=== PATIENT | female | born 1955 | race Caucasian/White ===

== ENCOUNTER 2022-10-22 09:32 | Outpatient (OUT) | payer MEDICARE, SELFPAY ==
--- NOTE | 2022-10-22 09:44 | CT_ITS ---
The [address] [address] Patient Name: MIKE PEARCE MRN: [id number] date: 1955 Sex: F Assigned Patient Location: CT Current Patient Location: Accession/Order Number: [id number] Exam Date: 10/22/2022 09:45 Report Date: 10/23/2022 07:42 At the request of: SAMANTHA ROLLINS Procedure: CT chest wo con EXAM: CT chest wo con HISTORY: Lung Nodule R91.1 cough, difficulty breathing COMPARISON: CT scan dated 04/21/2022. FINDINGS: 2.6 x 2.4 cm left upper lobe focal opacity is not significantly changed. 5 mm solid left lower lobe pulmonary nodule is not significantly changed. 2 mm right apical solid pulmonary nodule is not significantly changed. Subpleural right upper lobe 3 to 4 mm solid pulmonary nodule is not significantly changed. No acute airspace opacities. No pneumothorax. No pleural effusion. No definite lymphadenopathy in the chest. Centrilobular emphysema in both lungs. Ascending aorta is at the upper limits of normal in caliber measuring up to 3.[address]/CT chest wo con IMPRESSION: Stable focal left upper lobe opacity. This remains indeterminate for a low-grade malignancy. Continued imaging follow-up is recommended. Electronically authenticated by: DAVID MELVIN Date: 10/23/2022 07:42
== END 2022-10-22 09:33 | disposition home or self-care (01) ==
LOC: CT 09:35
PROVIDERS: PCP Family Medicine; Visit Provider Family Medicine
DX: R91.1 Solitary pulmonary nodule (principal)
CPT/HCPCS: 71250

== ENCOUNTER 2023-04-21 09:35 | Outpatient (OUT) | payer MEDICARE, SELFPAY ==
--- NOTE | 2023-04-21 09:41 | XR_ITS ---
The [address] [address] Patient Name: MIKE PEARCE MRN: [id number] date: 1955 Sex: F Assigned Patient Location: [facility] Current Patient Location: [facility] Accession/Order Number: [id number] Exam Date: 04/21/2023 09:45 Report Date: 04/21/2023 10:16 At the request of: SAMANTHA ROLLINS Procedure: XR shoulder LT min 2V EXAM: XR shoulder LT min 2V HISTORY: Lung Mass R91.8 COMPARISON: None. TECHNIQUE: 3 views FINDINGS: No acute fracture or dislocation. Mild degenerative changes of the acromioclavicular and glenohumeral joints. Unremarkable soft tissues. XR/XR shoulder LT min 2V IMPRESSION: Degenerative changes as above. Electronically authenticated by: CECI PELAEZ Date: 04/21/2023 10:16
== END 2023-04-21 09:36 | disposition home or self-care (01) ==
LOC: RAD 09:36
PROVIDERS: PCP Family Medicine; Visit Provider Family Medicine
DX: R91.8 Other nonspecific abnormal finding of lung field (principal)
CPT/HCPCS: 73030

== ENCOUNTER 2023-04-22 08:31 | Outpatient (OUT) | payer MEDICARE, SELFPAY ==
--- OUTSIDE RECORDS SUMMARY | 2023-04-22 08:34 | XMS_ITS | CCD ---
Author Name Unknown Address [facility] [address] [place] [id number] Organization [facility] Care Team Providers Care Dependency Counselor Name Role Phone PHYSICIAN, DEFAULT Admitting Unavailable PHYSICIAN, DEFAULT Attending Unavailable PHYSICIAN, DEFAULT Admitting Unavailable PHYSICIAN, DEFAULT Attending Unavailable HOY ., DR SINGH Consulting Unavailable HOY ., DR SINGH Primary Care Unavailable HOY ., DR SINGH Admitting Unavailable HOY ., DR SINGH Attending Unavailable HOY ., DR SINGH Primary Care Unavailable HOY ., DR SINGH Admitting Unavailable HOY ., DR SINGH Attending Unavailable HOY ., DR SINGH Consulting Unavailable ZIEBER, DR PELON Masters Consulting Unavailable HOY ., DR SINGH Primary Care Unavailable HOY ., DR SINGH Admitting Unavailable HOY ., DR SINGH Attending Unavailable HOY ., DR SINGH Consulting Unavailable POLICARO, GLORIA Consulting Unavailable Allergies Allergy Classification Reported Allergen(s) Allergy Type Date of Onset Reaction(s) Facility (1 source) Sulfonamides (Antibiotic) Drug allergy (disorder) 10-04-2012 [facility] Problems Problem Classification Problem Date Documented Da te Episodic/Chronic Chronic obstructive pulmonary disease and bronchiectasis (1 source) Chronic obstructive pulmonary disease, unspecified; Translations: [COPD UNSPECIFIED] Onset: 04-26-2022 Chronic Deficiency and other anemia (1 source) Anemia, unspecified; Translations: [ANEMIA UNSPECIFIED] Onset: 04-26-2022 Episodic Diabetes mellitus without complication (1 source) Other abnormal glucose; Translations: [OTHER ABNORMAL GLUCOSE] Onset: 04-26-2022 Episodic Disorders of lipid metabolism (1 source) Hyperlipidemia, unspecified; Translations: [HYPERLIPIDEMIA UNSPECIFIED] Onset: 04-26-2022 Chronic Other lower respiratory disease (4 sources) Solitary pulmonary nodule; Translations: [SOLITARY PULMONARY NODULE] Onset: 04-24-2022 Episodic Other lower respiratory disease (1 source) Shortness of breath; Translations: [SHORTNESS OF BREATH] Onset: 04-26-2022 Episodic Other screening for suspected conditions (not mental disorders or infectious disease) (5 sources) Abnormal results of thyroid function studies; Translations: [Encounter for screening for malignant neoplasm of rectum] Onset: 04-26-2022 Episodic Spondylosis; intervertebral disc disorders; other back problems (4 sources) Lumbago with sciatica, right side; Translations: [LUMBAGO WITH SCIATICA RIGHT SIDE] Onset: 04-21-2022 Episodic Substance-related disorders (1 source) Nicotine dependence, cigarettes, uncomplicated; Translations: [NICOTINE DEPEND CIGARETTES UNCOMP] Onset: 04-26-2022 Chronic Results Test Name Value Interpretation Reference Range Facility FREE T3on 05-19-2022 FREE T3 2.61 pg/mlL Normal 2.18-3.98 [facility] Comment on above: Performed By: #### T SH, T4, FT3 #### [facility] [address] [place] [address] Dr. Whitley Alston T4on 05-19-2022 T4 [Mass/Vol] 8.30 ug/dL Normal 4.80-13.90 [facility] Comment on above: Performed By: #### T SH, T4, FT3 #### [facility] [address] [address] [address] Whitley Alston TSHon 05-19-2022 TSH 3.401 uIU/mL Normal 0.358-3.740 [facility] Comment on above: Performed By: #### T SH, T4, FT3 #### [facility] [address] [place] [address] Dr. Whit[address] CT SKULL BASE MID THIGHo n 04-24-[address] SKULL BASE MID THIGH NUCLEAR MEDICINE PET/CT HISTORY: Solitary pulmonary nodule. COMPARISON: CT chest 04/21/2022. METHOD: 11.49 mCi of F-18 FDG was administered intravenously. PET images were obtained from the skull base through the midthigh levels in the axial plane. Reformatted images were performed in the sagittal and coronal planes. A low-dose, noncontrast CT scan was performed for attenuation correction and anatomical localization. A low dose, noncontrast and nondiagnostic CT scan was performed for attenuation correction and anatomic localization. Mediastinal blood pool SUV max 2.7 using the patient's body weight as the normalization method. FINDINGS: HEAD AND NECK: There are no metabolically active lymph nodes in the neck. CHEST: There are no metabolically active mediastinal, hilar, or axillary lymph nodes. The major airways are patent. There is no pericardial effusion. There is no evidence of abnormal metabolic uptake in the esophagus. There are emphysematous changes. There is a minimally metabolically active 2.1 x 2.1 x 1.4 cm ill-defined left upper lobe density with a maximum SUV of 2.2. There is a nonmetabolically active left lower lobe 4 mm pulmonary nodule. There is no evidence of abnormal metabolic uptake in the lung parenchyma. There are no pleural effusions. There is no pneumothorax. ABDOMEN AND PELVIS: There is no evidence of abnormal metabolic activity in the liver or adrenal glands. There is no evidence of abnormal metabolic active lymph nodes in the abdomen or pelvis. There is no free fluid. There is physiologic uptake in the urinary system and bowel. MUSCULOSKELETAL: There is no evidence of abnormal metabolically active bony lesions. IMPRESSION: Minimally metabolically active ill-defined left upper lobe density measuring 2.1 x 2.1 x 1.4 cm. This may be of benign etiology however this could represent a slow-growing neoplasm such as a bronchioloalveolar carcinoma. Recommend follow-up noncontrast CT chest in 3 and 9 months. Nonmetabolically active left lower lobe 4 mm pulmonary nodule. This can also be reassessed on the follow-up CT chest's. Emphysema. Electronically authenticated by: GLORIA PRO Date: 2022-04-24 17:22 Normal [facility] CBC AUTO DIFFon 04-21-2022 BASO # 0.0 103/ul Normal 0.0-0.1 [facility] Comment on above: Performed By: #### C BC #### [facility] [address], [place] [address] Dr. Whitley Alston Basophils/100 WBC (Bld) 0.5 % Normal 0.2-2.0 [facility] Comment on above: Performed By: #### C BC #### [facility] [address], [place] [address] Dr. Whitley Alston EO # 0.3 103/ul Normal 0.0-0.7 [facility] Comment on above: Performed By: #### C BC #### [facility] [address] [place] [address] Dr. Whitley Alston Eosinophils/100 WBC (Bld) 5.6 % Normal 0.9-7.0 [facility] Comment on above: Performed By: #### C BC #### [facility] [address] [place] [address] Dr. Whitley Alston Erythrocyte distribution width (RBC) [Ratio] 13.2 % Normal 11.0-15.0 [facility] Comment on above: Performed By: #### C BC #### [facility] [address] [place] [address] Dr. Whitley Alston Hematocrit (Bld) [Volume fraction] 42.8 % Normal 36.0-48.0 [facility] Comment on above: Performed By: #### C BC #### [facility] [address] [place] [address] Dr. Whitley Alston Hemoglobin (Bld) [Mass/Vol] 14.3 g/dL Normal 12.0-16.0 [facility] Comment on above: Performed By: #### C BC #### [facility] [address] [place] [address] Dr. Whitley Alston IG # 0.02 10e3/ul Normal 0.00-0.03 [facility] Comment on above: Performed By: #### C BC #### [facility] [address] [place] [address] Dr. Whitley Alston IG % 0.3 % Normal 0.0-0.5 [facility] Comment on above: Performed By: #### C BC #### [facility] [address] [place] [address] Dr. Whitley Alston LYMPH # 1.8 103/ul Normal 1.2-3.8 [facility] Comment on above: Performed By: #### C BC #### [facility] [address] [place] [address] Dr. Whitley Alston Lymphocytes/100 WBC (Bld) 30.7 % Normal 20.5-60.0 [facility] Comment on above: Performed By: #### C BC #### [facility] [address] [place] [address] Dr. Whitley Alston MANUAL DIFF REQ NO Normal [facility] Comment on above: Performed By: #### C BC #### [facility] [address] [place] [address] Dr. Whitley Alston MCH (RBC) [Entitic mass] 29.2 pg Normal 26.7-34.0 [facility] Comment on above: Performed By: #### C BC #### [facility] [address] [place] [address] Dr. Whitley Alston MCHC (RBC) [Mass/Vol] 33.4 g/dL Normal 29.9-35.2 [facility] Comment on above: Performed By: #### C BC #### [facility] [address] [place] [address] Dr. Whitley Alston MCV (RBC) [Entitic vol] 87.3 fL Normal 81.0-99.0 [facility] Comment on above: Performed By: #### C BC #### [facility] [address] [place] [address] Dr. Whitley Alston MONO # 0.5 103/ul Normal 0.3-0.8 [facility] Comment on above: Performed By: #### C BC #### [facility] [address] [place] [address] Dr. Whitley Alston Monocytes/100 WBC (Bld) 9.4 % Normal 1.7-12.0 [facility] Comment on above: Performed By: #### C BC #### [facility] [address] [place] [address] Dr. Whitley Alston NEUT # 3.1 103/ul Normal 1.4-6.5 [facility] Comment on above: Performed By: #### C BC #### [facility] [address] [place] [address] Dr. Whitley Alston Neutrophils/100 WBC (Bld) 53.5 % Normal 43.0-75.0 [facility] Comment on above: Performed By: #### C BC #### [facility] [address] [address] [address] Whitley Alston Platelet mean volume (Bld) [Entitic vol] 10.5 fL Normal 9.5-13.5 [facility] Comment on above: Performed By: #### C BC #### [facility] [address] [place] [address] Dr. Whitley Alston PLT 271 103/ul Normal 150-450 [facility] Comment on above: Performed By: #### C BC #### [facility] [address] [place] [address] Dr. Whitley Alston RBC 4.90 106/ul Normal 4.20-5.40 [facility] Comment on above: Performed By: #### C BC #### [facility] [address] [place] [address] Dr. Whitley Alston WBC 5.7 103/ul Normal 4.0-11.0 [facility] Comment on above: Performed By: #### C BC #### [facility] [address] [place] [address] LUNG CANCER SCREENINGon 0 04-21-2022 CT LUNG CANCER SCREENING EXAMINATION: CT LUNG CANCER SCREENING HISTORY: Tobacco dependence caused by cigarettes , cough, shortness of breath and COMPARISON: No relevant comparison available. TECHNIQUE: Axial, Coronal, and Sagittal images were created without the administration of IV contrast material. Dose reduction techniques were achieved by using automated exposure control and/or adjustment of mA and/or kV according to patient size and/or use of iterative reconstruction technique. FINDINGS: LUNGS: Geographic shaped spiculated opacity within anterior right upper lobe, 2.1 x 2.1 x 1.4 cm. 5 mm nodule within lateral basilar segment of left lower lobe. Mild emphysematous changes bilaterally. In PLEURA: No mass, effusion, or pneumothorax. VASCULATURE: No abnormality. QUINN: No mass or pathologic adenopathy. MEDIASTINUM: No mass or pathologic adenopathy. CARDIAC: No enlargement, pericardial thickening, or significant calcification. AORTA: No aneurysm or dissection. CHEST WALL: No mass or axillary adenopathy BONES: No bone lesion or fracture. LIMITED ABDOMEN: No suspicious findings. Limited images of the upper abdomen. OTHER: Negative. IMPRESSION: 1. Lung-RADS Category 4A- Suspicious. Findings for which additional diagnostic testing and/ or tissue sampling is recommended. 3 month LDCT; PET/CT may be used when there is a >= 8 mm solid component. 2. PET/CT recommended for further evaluation. Electronically authenticated by: PELON DAVIS Date: 2022-04-21 11:38 Normal [facility] FREE THYROXINE INDEX T7on FTI 2.63 Normal 1.30-4.50 [facility] Comment on above: Performed By: #### L IPID, TSH, T7, CMP #### [facility] [address] [place] [address] Dr. Whitley Alston T3U 37.0 % Normal 30.0-39.0 [facility] Comment on above: Performed By: #### L IPID, TSH, T7, CMP #### [facility] [address] [place] [address] Dr. Whitley Alston T4 [Mass/Vol] 7.10 ug/dL Normal 4.80-13.90 [facility] Comment on above: Performed By: #### L IPID, TSH, T7, CMP #### [facility] [address] [place] [address] Dr. Whitley Alston GLYCOHEMOGLOBIN A1Con 2022 ADA RECOMMENDATION SEE BELOW Normal [facility] Comment on above: Result Comment: ADA RECOMMENDED LIMIT 4.0 - 6.0 ADA THERAPEUTIC TARGET < 7.0 ACTION SUGGESTED > 7.0 Performed By: #### A 1C #### [facility] [address] [place] [address] Dr. Whitley Alston Glucose [Mass/Vol] 105 mg/dL Normal [facility] Comment on above: Performed By: #### A 1C #### [facility] [address] [place] [address] Dr. Whitley Alston HbA1c (Bld) [Mass fraction] 5.3 % Normal 4.5-6.2 [facility] Comment on above: Performed By: #### A 1C #### [facility] [address] [place] [address] Dr. Whitley Alston IRONon 04-21-2022 Iron [Mass/Vol] 137.0 ug/dL Normal 50.0-170.0 [facility] Comment on above: Performed By: #### I KINSEY ####[facility] [address] [address]Dr. Whitley Alston LIPID PROFILEon 04-21-2022 CHOL-HDL RATIO NORM SEE BELOW Normal [facility] Comment on above: Result Comment: 3.3 - 4.4 LOW RISK 4.4 - 7.1 AVERAGE RISK 7.1 - 11.0 MODERATE RISK >11.0 HIGH RISK Performed By: #### L IPID, TSH, T7, CMP ####[facility] [address] [address]Dr. Whitley Alston Cholesterol [Mass/Vol] 250 mg/dL Critically high <=200 [facility] Comment on above: Performed By: #### L IPID, TSH, T7, CMP ####[facility] [address] [place], [place] [address]Dr. Whitley Alston Cholesterol in HDL [Mass/Vol] 111 mg/dL Critically high 40-60 [facility] Comment on above: Performed By: #### L IPID, TSH, T7, CMP ####[facility] [address] [address]Dr. Whitley Alston Cholesterol in LDL [Mass/Vol] 121.6 mg/dL Normal [facility] Comment on above: Performed By: #### L IPID, TSH, T7, CMP ####[facility] [address] [address]Dr. Whitley Alston Cholesterol.total/Ch olesterol in HDL [Mass ratio] 2.3 {ratio} Normal [facility] Comment on above: Performed By: #### L IPID, TSH, T7, CMP ####[facility] [address] [address]Dr. Whitley Alston HDL NORMAL > or = 60 mg/dl - LO W CARDIOVASCULAR RISK <40 mg/dl - HIGH CARDIOVASCULAR RISK Normal [facility] Comment on above: Performed By: #### L IPID, TSH, T7, CMP ####[facility] [address] [id number]. Whitley Alston LDL CALC NORMAL SEE BELOW Normal [facility] Comment on above: Result Comment: <100 mg/dl OPTIMAL 100 - 129 mg/dl NEAR OR ABOVE OPTIMAL 130 - 159 mg/dl BORDERLINE HIGH 160 - 189 mg/dl HIGH >190 mg/dl VERY HIGH Performed By: #### L IPID, TSH, T7, CMP ####[facility] [address] [address]Dr. Whitley Alston Triglyceride [Mass/Vol] 87 mg/dL Normal <=150 [facility] Comment on above: Performed By: #### L IPID, TSH, T7, CMP ####[facility] [address] [address]Dr. Whitley Alston VLDL CALC 17.4 mg/dL Normal [facility] Comment on above: Performed By: #### L IPID, TSH, T7, CMP ####[facility] [address] [address]Dr. Whitley Alston PROF 14(COMP METB)on 023 Albumin [Mass/Vol] 4.1 g/dL Normal 3.4-5.[address] [facility] Comment on above: Performed By: #### L IPID, TSH, T7, CMP #### [facility] [address] [address] [address] Whitley Alston Albumin/Globulin [Mass ratio] 1.2 {ratio} Normal [facility] Comment on above: Performed By: #### L IPID, TSH, T7, CMP #### [facility] [address] [address] [address] Whitley Alston ALP [Catalytic activity/Vol] 81 U/L Normal 46-116 [facility] Comment on above: Performed By: #### L IPID, TSH, T7, CMP #### [facility] [address] [address] [address] Whitley Alston ALT [Catalytic activity/Vol] 24 U/L Normal 14-59 [facility] Comment on above: Performed By: #### L IPID, TSH, T7, CMP #### [facility] [address] [place] [address] Dr. Whitley Alston Anion gap [Moles/Vol] 11.0 mmol/L Normal [facility] Comment on above: Performed By: #### L IPID, TSH, T7, CMP #### [facility] [address] [place] [address] Dr. Whitley Alston AST [Catalytic activity/Vol] 18 U/L Normal 15-37 [facility] Comment on above: Performed By: #### L IPID, TSH, T7, CMP #### [facility] [address] [place] [address] Dr. Whitley Alston Bilirubin [Mass/Vol] 0.7 mg/dL Normal 0.2-1.0 [facility] Comment on above: Performed By: #### L IPID, TSH, T7, CMP #### [facility] [address] [place] [address] Dr. Whitley Alston Calcium [Mass/Vol] 9.7 mg/dL Normal 8.5-10.[address] [facility] Comment on above: Performed By: #### L IPID, TSH, T7, CMP #### [facility] [address] [place] [address] Dr. Whitley Alston Chloride [Moles/Vol] 106 mmol/L Normal 98-107 [facility] Comment on above: Performed By: #### L IPID, TSH, T7, CMP #### [facility] [address] [place] [address] Dr. Whitley Alston CO2 [Moles/Vol] 27.1 mmol/L Normal 21.0-32.0 [facility] Comment on above: Performed By: #### L IPID, TSH, T7, CMP #### [facility] [address] [place] [address] Dr. Whitley Alston Creatinine [Mass/Vol] 0.78 mg/dL Normal 0.55-1.02 [facility] Comment on above: Performed By: #### L IPID, TSH, T7, CMP #### [facility] [address] [place], [place] [id number] Dr. Whitley Alston EGFR-AF CROATIAN >60 Normal >=60 [facility] Comment on above: Performed By: #### L IPID, TSH, T7, CMP #### [facility] [address] [address] [address] Whitley Alston EGFR-NON AF CROATIAN >60 Normal >=60 [facility] Comment on above: Performed By: #### L IPID, TSH, T7, CMP #### [facility] [address] [address] [address] Whitley Alston Globulin (S) [Mass/Vol] 3.5 g/dL Normal [facility] Comment on above: Performed By: #### L IPID, TSH, T7, CMP #### [facility] [address] [place] [address] Dr. Whitley Alston Glucose [Mass/Vol] 107 mg/dL Critically high 74-106 [facility] Comment on above: Performed By: #### L IPID, TSH, T7, CMP #### [facility] [address] [place] [address] Dr. Whitley Alston Potassium [Moles/Vol] 4.1 mmol/L Normal 3.5-5.1 [facility] Comment on above: Performed By: #### L IPID, TSH, T7, CMP #### [facility] [address] [place] [address] Dr. Whitley Alston Protein [Mass/Vol] 7.6 g/dL Normal 6.4-8.2 [facility] Comment on above: Performed By: #### L IPID, TSH, T7, CMP #### [facility] [address] [place] [address] Dr. Whitley Alston Sodium [Moles/Vol] 140 mmol/L Normal 136-145 [facility] Comment on above: Performed By: #### L IPID, TSH, T7, CMP #### [facility] [address] [address] [address] Whitley Alston Urea nitrogen [Mass/Vol] 12.0 mg/dL Normal 7.0-18.0 [facility] Comment on above: Performed By: #### L IPID, TSH, T7, CMP #### [facility] [address], [place] [address] Dr. Whitley Alston Urea nitrogen/Creatinine [Mass ratio] 15.4 mg/mg Normal [facility] Comment on above: Performed By: #### L IPID, TSH, T7, CMP #### [facility] [address], [place] [address] Dr. Whitley Alston TSHon 04-21-2022 TSH 4.624 uIU/mL Critically high 0.358-3.[address] [facility] Comment on above: Performed By: #### L IPID, TSH, T7, CMP #### [facility] [address], [place] [address] Dr. Whitley Alston Encounters Encounter Date Encounter Type Care Provider Facility Start: 05-19-2022 End: 05-20-[address] SAMANTHA ROLLINS . Facility:[facility] Start: 04-24-2022 End: 04-25-[address] SAMANTHA ROLLINS . Facility:[facility] Start: 04-21-2022 End: 04-22-[address] SAMANTHA ROLLINS . Facility: Start: 05-15-2018 End: 05-16-2018 Patient encounter procedure DEFAULT PHYSICIAN Facility:[facility] Start: 04-13-2018 End: 04-14-2018 Patient encounter procedure DEFAULT PHYSICIAN Facility:[facility] Payers Date Payer Category Payer Unknown [id number] 1955 Unknown [id number] [id number] 1955 Unknown [id number] [id number] 1955 Unknown [id number] [id number] 1955 Unknown [id number] 2.16.84 [id number] 1955 Unknown [id number] 2.16.84 [id number] Unknown Summary Purpose Family History No Family History Records FoundNo Family History Records Found Advance Directives No Advanced Directives Records FoundNo Advanced Directives Records Found Additional Source Comments INFORMATION SOURCE (unrecogn ized section and content) DATE CREATED AUTHOR 05/16/2018 [facility] DATE CREATED AUTHOR AUTHOR'S ANABEL ATLOWELL 05/28/2022 [facility] FOR RECORDS PERTAINING TO PATIENTS WHO ARE OR HAVE BEEN ENROLLED IN A CHEMICAL DEPENDENCY/SUBSTANCEABUSE PROGRAM, SOME INFORMATION MAY BE OMITTED. This clinical summary was aggregated from multiple sources. Caution should be exercised in using it in the provision of clinical care. This summary normalizes information from multiple sources, and as a consequence, information in this document may materially change the coding, format and clinical context of patient data. In addition, data may be omitted in some cases. CLINICAL DECISIONS SHOULD BE BASED ON THE PRIMARY CLINICAL RECORDS. [facility] [employer] [facility]. provides no warranty or guarantee of the accuracy or completeness of information in this document.
[2023-04-22 09:27] LABS: Estimated Average Glucose 105 mg/dL; Glycohemoglobin A1C 5.3 % (4.5-6.2)
[2023-04-22 10:31] LABS: Basophils Percent Auto 0.5 % (0.2-2.0); Eosinophils Absolute Auto 0.3 10^3/uL (0.0-0.7); Eosinophils Percent Auto 3.4 % (0.9-7.0); Hematocrit 42.6 % (36.0-48.0); Hemoglobin 13.6 g/dL (12.0-16.0); Immature Granulocytes Abs Auto 0.02 10^3/uL (0.00-0.03); Immature Granulocytes Pct Auto 0.2 % (0.0-0.5); Lymphocytes Absolute Auto 2.2 10^3/uL (1.2-3.8); Lymphocytes Percent Auto 27.3 % (20.5-60.0); Mean Corpuscular HGB Conc 31.9 g/dL (29.9-35.2); Mean Corpuscular Hemoglobin 28.7 pg (26.7-34.0); Mean Corpuscular Volume 89.9 fL (81.0-99.0); Mean Platelet Volume 12.2 fL (9.5-13.5); Monocytes Absolute Auto 0.7 10^3/uL (0.3-0.8); Neutrophils Percent Auto 60.6 % (43.0-75.0); Platelet Count 271 10^3/uL (150-450); Red Blood Count 4.74 10^6/uL (4.20-5.40); Red Cell Distribution Width 13.2 % (11.0-15.0); White Blood Count 8.2 10^3/uL (4.0-11.0)
[2023-04-22 11:22] LABS: Alanine Aminotransferase 19 U/L (14-59); Albumin Globulin Ratio 1.1; Alkaline Phosphatase 86 U/L (46-116); Anion Gap 12.7; Aspartate Amino Transferase 16 U/L (15-37); BUN Creatinine Ratio 15.4; Bilirubin Total 0.7 mg/dL (0.2-1.0); Calcium 9.6 mg/dL (8.5-10.1); Carbon Dioxide 29.3 mmol/L (21.0-32.0); Chloride 106 mmol/L (98-107); Chol HDL Ratio 2.3; Cholesterol 222 mg/dL (<=200); Estimated GFR (African America >60 (>=60); Estimated GFR (Non-African Ame >60 (>=60); Free T3 3.35 pg/mL (2.18-3.98); Globulin 3.8 g/dL; Glucose 91 mg/dL (74-106); HDL Cholesterol 96 mg/dL (40-60); Sodium 144 mmol/L (136-145); Total Protein 7.8 g/dL (6.4-8.2); Triglycerides 67 mg/dL (<=150); VLDL CHOLESTEROL 13.4 mg/dL
== END 2023-04-22 08:32 | disposition home or self-care (01) ==
LOC: LAB 08:31
PROVIDERS: PCP Family Medicine; Visit Provider Family Medicine
DX: R91.8 Other nonspecific abnormal finding of lung field (principal); J44.9 Chronic obstructive pulmonary disease, unspecified; I10 Essential (primary) hypertension; E78.5 Hyperlipidemia, unspecified; R73.09 Other abnormal glucose; Z12.12 Encounter for screening for malignant neoplasm of rectum
CPT/HCPCS: 36415; 80053; 80061; 83036; 84436; 84443; 84481; 85025

== ENCOUNTER 2023-04-29 08:17 | Day surgery (SDC) | payer MEDICARE, SELFPAY ==
--- NOTE | 2023-04-29 | MR_ITS ---
[facility] [place] [id number] Patient Name: MIKE PEARCE MRN: [id number] date: 1955 Sex: F Assigned Patient Location: CT Current Patient Location: CT Accession/Order Number: [id number] Exam Date: 04/29/2023 10:35 Report Date: 04/29/2023 12:19 At the request of: SAMANTHA ROLLINS Procedure: MR shoulder LT w con EXAMINATION: MR shoulder LT w con HISTORY: Lung Mass, Left Shoulder Pain for one year; decreased range of motion COMPARISON: No relevant comparison available. TECHNIQUE: A variety of imaging planes and parameters were utilized for visualization of suspected pathology. Images were performed with intra-articular contrast. FINDINGS: ROTATOR CUFF REGION CUFF TENDONS: Minimal increased signal intensity in the supraspinatus tendon indicates tendon degeneration and/or tendinitis. No denilson tear is seen. CUFF MUSCLES: Normal appearing muscles. DELTOID: No significant atrophy or tear. LONG BICEPS TENDON: Normal. No abnormal signal, attrition, or tear. LABRUM/BICEPS ANCHOR SUPERIOR: Suspect small tear of the superior labrum. ANTERIOR/INFERIOR: No visible tear or attrition. POSTERIOR: No posterior labrum abnormality. CAPSULE ANTERIOR/INFERIOR: No visible capsular laxity or thickening. Type I origin of the middle glenohumeral ligament. POSTERIOR: No visible capsular laxity or thickening. AC JOINT REGION AC JOINT: Mild osteoarthropathy with no significant narrowing of the underlying coracoacromial arch. AC LIGAMENTS: Normal acromioclavicular ligament. CC LIGAMENTS: Normal coracoclavicular ligaments. ACROMION: Mild lateral downsloping. SUBACROMIAL BURSA: Normal. No significant effusion. HYALINE CARTILAGE: Normal. No visible cartilage narrowing or focal defect. OTHER BONES: Normal proximal humerus, glenoid, and coracoid. OTHER OBSERVATIONS: Negative. No other significant findings or glenohumeral effusion. MR/MR shoulder LT w con IMPRESSION: 1. Mild to moderate strain supinator is tendon. No convincing tear. 2. Suspect small tear of the superior labrum. 3. Mild degenerative changes of the acromioclavicular joint and slight lateral downsloping acromion process which would predispose to rotator cuff injury. Electronically authenticated by: PELON DAVIS Date: 04/29/2023 12:19
--- OUTSIDE RECORDS SUMMARY | 2023-04-29 08:20 | XMS_ITS | CCD ---
Author Name Unknown Address [facility] [address] [place] [id number] Organization [facility] Care Team Providers Care Environmental Studies Faculty Member Name Role Phone PHYSICIAN, DEFAULT Admitting Unavailable [...] Sulfonamides (Antibiotic) Drug allergy (disorder) 10-04-2012 [facility] Repository Problems Problem Classification Problem Date [...] 05-19-2022 FREE T3 2.61 pg/mlL Normal 2.18-3.98 [facility] Comment on above: Performed By: #### T SH, T4, FT3 #### [facility] [address] [place] [address] Dr. Whitley Alston T4on 05-19-2022 T4 [Mass/Vol] 8.30 ug/dL Normal 4.80-13.90 [facility] Comment on above: Performed By: #### T SH, T4, FT3 #### [facility] [address] [place] [address] [address] Whitley Alston TSHon 05-19-2022 TSH 3.401 uIU/mL Normal 0.358-3.740 [facility] Comment on above: Performed By: #### T SH, T4, FT3 #### [facility] [address] [place] [address] [address] SKULL BASE [...] GLORIA PRO Date: 2022-04-24 17:22 Normal [facility] CBC AUTO DIFFon 04-21-2022 BASO # 0.0 103/ul Normal 0.0-0.1 [facility] Comment on above: Performed By: #### C BC #### [facility] [address] [place], [place] [address] Dr. Whitley Alston Basophils/100 WBC (Bld) 0.5 % Normal 0.2-2.0 [facility] Comment on above: Performed By: #### C BC #### [facility] [address] [place], [place] [address] Dr. Whitley Alston EO # 0.3 103/ul Normal 0.0-0.7 [facility] Comment on above: Performed By: #### C BC #### [facility] [address] [place] [address] Dr. Whitley Alston Eosinophils/100 WBC (Bld) 5.6 % Normal 0.9-7.0 [facility] Comment on above: Performed By: #### C BC #### [facility] [address] [place] [address] Dr. Whitley Alston Erythrocyte distribution width (RBC) [Ratio] 13.2 % Normal 11.0-15.0 [facility] Comment on above: Performed By: #### C BC #### [facility] [address] [place] [address] Dr. Whitley Alston Hematocrit (Bld) [Volume fraction] 42.8 % Normal 36.0-48.0 [facility] Comment on above: Performed By: #### C BC #### [facility] [address] [place] [address] Dr. Whitley Alston Hemoglobin (Bld) [Mass/Vol] 14.3 g/dL Normal 12.0-16.0 [facility] Comment on above: Performed By: #### C BC #### [facility] [address] [place] [address] Dr. Whitley Alston IG # 0.02 10e3/ul Normal 0.00-0.03 [facility] Comment on above: Performed By: #### C BC #### [facility] [address] [place] [address] Dr. Whitley Alston IG % 0.3 % Normal 0.0-0.5 [facility] Comment on above: Performed By: #### C BC #### [facility] [address] [place] [address] Dr. Whitley Alston LYMPH # 1.8 103/ul Normal 1.2-3.8 [facility] Comment on above: Performed By: #### C BC #### [facility] [address] [place] [address] Dr. Whitley Alston Lymphocytes/100 WBC (Bld) 30.7 % Normal 20.5-60.0 [facility] Comment on above: Performed By: #### C BC #### [facility] [address] [place] [address] Dr. Whitley Alston MANUAL DIFF REQ NO Normal [facility] Comment on above: Performed By: #### C BC #### [facility] [address] [place] [address] Dr. Whitley Alston MCH (RBC) [Entitic mass] 29.2 pg Normal 26.7-34.0 [facility] Comment on above: Performed By: #### C BC #### [facility] [address] [place] [address] Dr. Whitley Alston MCHC (RBC) [Mass/Vol] 33.4 g/dL Normal 29.9-35.2 [facility] Comment on above: Performed By: #### C BC #### [facility] [address] [place] [address] Dr. Whitley Alston MCV (RBC) [Entitic vol] 87.3 fL Normal 81.0-99.0 [facility] Comment on above: Performed By: #### C BC #### [facility] [address] [place] [address] Dr. Whitley Alston MONO # 0.5 103/ul Normal 0.3-0.8 [facility] Comment on above: Performed By: #### C BC #### [facility] [address] [place] [address] Dr. Whitley Alston Monocytes/100 WBC (Bld) 9.4 % Normal 1.7-12.0 [facility] Comment on above: Performed By: #### C BC #### [facility] [address] [place] [address] Dr. Whitley Alston NEUT # 3.1 103/ul Normal 1.4-6.5 [facility] Comment on above: Performed By: #### C BC #### [facility] [address] [place] [address] Dr. Whitley Alston Neutrophils/100 WBC (Bld) 53.5 % Normal 43.0-75.0 [facility] Comment on above: Performed By: #### C BC #### [facility] [address] [place] [address] [address] Whitley Alston Platelet mean volume (Bld) [Entitic vol] 10.5 fL Normal 9.5-13.5 [facility] Comment on above: Performed By: #### C BC #### [facility] [address] [place] [address] Dr. Whitley Alston PLT 271 103/ul Normal 150-450 [facility] Comment on above: Performed By: #### C BC #### [facility] [address] [place] [address] Dr. Whitley Alston RBC 4.90 106/ul Normal 4.20-5.40 [facility] Comment on above: Performed By: #### C BC #### [facility] [address] [place] [address] Dr. Whitley Alston WBC 5.7 103/ul Normal 4.0-11.0 [facility] Comment on above: Performed By: #### C BC #### [facility] [address] [place] [address] LUNG CANCER SCREENINGon [...] PELON DAVIS Date: 2022-04-21 11:38 Normal [facility] FREE THYROXINE INDEX T7on FTI 2.63 Normal 1.30-4.50 [facility] Comment on above: Performed By: #### L IPID, TSH, T7, CMP #### [facility] [address] [place] [address] Dr. Whitley Alston T3U 37.0 % Normal 30.0-39.0 [facility] Comment on above: Performed By: #### L IPID, TSH, T7, CMP #### [facility] [address] [place] [address] Dr. Whitley Alston T4 [Mass/Vol] 7.10 ug/dL Normal 4.80-13.90 [facility] Comment on above: Performed By: #### L IPID, TSH, T7, CMP #### [facility] [address] [place] [address] Dr. Whitley Alston GLYCOHEMOGLOBIN A1Con 2022 ADA RECOMMENDATION SEE BELOW Normal [facility] Comment on above: Result Comment: ADA RECOMMENDED LIMIT 4.0 - 6.0 ADA THERAPEUTIC TARGET < 7.0 ACTION SUGGESTED > 7.0 Performed By: #### A 1C #### [facility] [address] [place] [address] Dr. Whitley Alston Glucose [Mass/Vol] 105 mg/dL Normal [facility] Comment on above: Performed By: #### A 1C #### [facility] [address] [place] [address] Dr. Whitley Alston HbA1c (Bld) [Mass fraction] 5.3 % Normal 4.5-6.2 [facility] Comment on above: Performed By: #### A 1C #### [facility] [address] [place] [address] Dr. Whitley Alston IRONon 04-21-2022 Iron [Mass/Vol] 137.0 ug/dL Normal 50.0-170.0 [facility] Comment on above: Performed By: #### I KINSEY ####[facility] [address] [place] [address]Dr. Whitley Alston LIPID PROFILEon 04-21-2022 CHOL-HDL RATIO NORM SEE BELOW Normal [facility] Comment on above: Result Comment: 3.3 - 4.4 LOW RISK 4.4 - 7.1 AVERAGE RISK 7.1 - 11.0 MODERATE RISK >11.0 HIGH RISK Performed By: #### L IPID, TSH, T7, CMP ####[facility] [address] [place] [address]Dr. Whitley Alston Cholesterol [Mass/Vol] 250 mg/dL Critically high <=200 [facility] Comment on above: Performed By: #### L IPID, TSH, T7, CMP ####[facility] [address] [place], [place] [address]Dr. Whitley Alston Cholesterol in HDL [Mass/Vol] 111 mg/dL Critically high 40-60 [facility] Comment on above: Performed By: #### L IPID, TSH, T7, CMP ####[facility] [address] [place] [address]Dr. Whitley Alston Cholesterol in LDL [Mass/Vol] 121.6 mg/dL Normal [facility] Comment on above: Performed By: #### L IPID, TSH, T7, CMP ####[facility] [address] [place] [address]Dr. Whitley Alston Cholesterol.total/Ch olesterol in HDL [Mass ratio] 2.3 {ratio} Normal [facility] Comment on above: Performed By: #### L IPID, TSH, T7, CMP ####[facility] [address] [place] [address]Dr. Whitley Alston HDL NORMAL > or = 60 mg/dl - LO W CARDIOVASCULAR RISK <40 mg/dl - HIGH CARDIOVASCULAR RISK Normal [facility] Comment on above: Performed By: #### L IPID, TSH, T7, CMP ####[facility] [address] [place] [id number][address] Whitley Alston LDL CALC NORMAL SEE BELOW Normal [facility] Comment on above: Result Comment: <100 mg/dl OPTIMAL 100 - 129 mg/dl NEAR OR ABOVE OPTIMAL 130 - 159 mg/dl BORDERLINE HIGH 160 - 189 mg/dl HIGH >190 mg/dl VERY HIGH Performed By: #### L IPID, TSH, T7, CMP ####[facility] [address] [place] [id number]. Whitley Alston Triglyceride [Mass/Vol] 87 mg/dL Normal <=150 [facility] Comment on above: Performed By: #### L IPID, TSH, T7, CMP ####[facility] [address] [place] [address]Dr. Whitley Alston VLDL CALC 17.4 mg/dL Normal [facility] Comment on above: Performed By: #### L IPID, TSH, T7, CMP ####[facility] [address] [place] [address]Dr. Whitley Alston PROF 14(COMP METB)on 023 Albumin [Mass/Vol] 4.1 g/dL Normal 3.4-5.0 [facility] Comment on above: Performed By: #### L IPID, TSH, T7, CMP #### [facility] [address] [place] [address] [address] Whitley Alston Albumin/Globulin [Mass ratio] 1.2 {ratio} Normal [facility] Comment on above: Performed By: #### L IPID, TSH, T7, CMP #### [facility] [address] [place] [address] [address] Whitley Alston ALP [Catalytic activity/Vol] 81 U/L Normal 46-116 [facility] Comment on above: Performed By: #### L IPID, TSH, T7, CMP #### [facility] [address] [place] [address] [address] Whitley Alston ALT [Catalytic activity/Vol] 24 U/L Normal 14-59 [facility] Comment on above: Performed By: #### L IPID, TSH, T7, CMP #### [facility] [address] [place] [address] Dr. Whitley Alston Anion gap [Moles/Vol] 11.0 mmol/L Normal [facility] Comment on above: Performed By: #### L IPID, TSH, T7, CMP #### [facility] [address] [place] [address] Dr. Whitley Alston AST [Catalytic activity/Vol] 18 U/L Normal 15-37 [facility] Comment on above: Performed By: #### L IPID, TSH, T7, CMP #### [facility] [address] [place] [address] Dr. Whitley Alston Bilirubin [Mass/Vol] 0.7 mg/dL Normal 0.2-1.0 [facility] Comment on above: Performed By: #### L IPID, TSH, T7, CMP #### [facility] [address] [place] [address] Dr. Whitley Alston Calcium [Mass/Vol] 9.7 mg/dL Normal 8.5-10.1 [facility] Comment on above: Performed By: #### L IPID, TSH, T7, CMP #### [facility] [address] [place] [address] Dr. Whitley Alston Chloride [Moles/Vol] 106 mmol/L Normal 98-107 [facility] Comment on above: Performed By: #### L IPID, TSH, T7, CMP #### [facility] [address] [place] [address] Dr. Whitley Alston CO2 [Moles/Vol] 27.1 mmol/L Normal 21.0-32.0 [facility] Comment on above: Performed By: #### L IPID, TSH, T7, CMP #### [facility] [address] [place] [address] Dr. Whitley Alston Creatinine [Mass/Vol] 0.78 mg/dL Normal 0.55-1.02 [facility] Comment on above: Performed By: #### L IPID, TSH, T7, CMP #### [facility] [address] [place], [place] [id number] Dr. Whitley Alston EGFR-AF BELGIAN >60 Normal >=60 [facility] Comment on above: Performed By: #### L IPID, TSH, T7, CMP #### [facility] [address] [place] [address] [address] Whitley Alston EGFR-NON AF BELGIAN >60 Normal >=60 [facility] Comment on above: Performed By: #### L IPID, TSH, T7, CMP #### [facility] [address] [place] [address] [address] Whitley Alston Globulin (S) [Mass/Vol] 3.5 g/dL Normal [facility] Comment on above: Performed By: #### L IPID, TSH, T7, CMP #### [facility] [address] [place] [address] Dr. Whitley Alston Glucose [Mass/Vol] 107 mg/dL Critically high 74-106 T [facility] Comment on above: Performed By: #### L IPID, TSH, T7, CMP #### [facility] [address] [place] [address] Dr. Whitley Alston Potassium [Moles/Vol] 4.1 mmol/L Normal 3.5-5.1 [facility] Comment on above: Performed By: #### L IPID, TSH, T7, CMP #### [facility] [address] [place] [address] Dr. Whitley Alston Protein [Mass/Vol] 7.6 g/dL Normal 6.4-8.2 [facility] Comment on above: Performed By: #### L IPID, TSH, T7, CMP #### [facility] [address] [place] [address] Dr. Whitley Alston Sodium [Moles/Vol] 140 mmol/L Normal 136-145 [facility] Comment on above: Performed By: #### L IPID, TSH, T7, CMP #### [facility] [address] [place] [address] [address] Whitley Alston Urea nitrogen [Mass/Vol] 12.0 mg/dL Normal 7.0-18.0 [facility] Comment on above: Performed By: #### L IPID, TSH, T7, CMP #### [facility] [address] [place], [place] [address] Dr. Whitley Alston Urea nitrogen/Creatinine [Mass ratio] 15.4 mg/mg Normal [facility] Comment on above: Performed By: #### L IPID, TSH, T7, CMP #### [facility] [address] [place], [place] [address] Dr. Whitley Alston TSHon 04-21-2022 TSH 4.624 uIU/mL Critically high 0.358-3.740 [facility] Comment on above: Performed By: #### L IPID, TSH, T7, CMP #### [facility] [address] [place], [place] [address] Dr. Whitley Alston Encounters Encounter Date Encounter Type Care Provider Facility Start: 05-19-2022 End: 05-20-[address] SAMANTHA ROLLINS . Facility:[facility] Start: 04-24-2022 End: 04-25-[address] SAMANTHA ROLLINS . Facility:[facility] Start: 04-21-2022 End: 04-22-[address] SAMANTHA ROLLINS . Facility: Start: 05-15-2018 End: 05-16-2018 Patient encounter procedure DEFAULT PHYSICIAN Facility:[facility] Start: 04-13-2018 End: 04-14-2018 Patient encounter procedure DEFAULT PHYSICIAN Facility:[facility] Payers Date Payer Category Payer Unknown [id number] 1955 Unknown [id number] 1955 Unknown [id number] 1955 Unknown [id number] 1955 Unknown [id number] [id number] [id number] 1955 Unknown [id number] 2.16.84 [id number] Unknown Summary Purpose Family History No Family History Records FoundNo Family History Records Found Advance Directives No Advanced Directives Records FoundNo Advanced Directives Records Found Additional Source Comments INFORMATION SOURCE (unrecogn ized section and content) DATE CREATED AUTHOR 05/16/2018 [facility] DATE CREATED AUTHOR AUTHOR'S ANABEL ATLOWELL 05/28/2022 [facility] FOR RECORDS PERTAINING TO PATIENTS WHO [...] BE BASED ON THE PRIMARY CLINICAL RECORDS. [facility] [employer] [facility]. provides no warranty or guarantee of the accuracy or completeness of information in this document.
--- NOTE | 2023-04-29 08:27 | CT_ITS ---
[address] [address] Patient Name: MIKE PEARCE MRN: [id number] date: 1955 Sex: F Assigned Patient Location: CT Current Patient Location: CT Accession/Order Number: [id number] Exam Date: 04/29/2023 08:30 Report Date: 04/29/2023 09:33 At the request of: SAMANTHA ROLLINS Procedure: CT chest wo con EXAMINATION: CT chest wo con HISTORY: Lung Mass R91.8 COMPARISON: CT chest 10/22/2022, PET/CT 04/24/2022, CT LUNG CANCER SCREENING 04/21/2022 TECHNIQUE: Multi-planar CT images were obtained without and/or with IV contrast as indicated by examination type. Axial, Coronal, and Sagittal images. Dose reduction techniques were achieved by using automated exposure control and/or adjustment of mA and/or kV according to patient size and/or use of iterative reconstruction technique. FINDINGS: LUNGS: 2.7 x 2.4 cm geographic shaped opacity within anterior left upper lobe. Stable 5 mm nodule within posterior lateral left lung base. Mild emphysematous changes bilaterally. PLEURA: No mass, effusion, or pneumothorax. VASCULATURE: No abnormality. QUINN: No mass or adenopathy. MEDIASTINUM: No mass or adenopathy. CARDIAC: No enlargement, pericardial thickening, or significant calcification. AORTA: No aneurysm or dissection. CHEST WALL: No mass or axillary adenopathy. BONES: No bone lesion or fracture. LIMITED ABDOMEN: No suspicious findings Limited images of the upper abdomen. OTHER: Negative. CT/CT chest wo con IMPRESSION: 1. Nonspecific geographic shaped opacity within anterior left upper lobe which has minimally increased in size since 04/21/2022 versus differences in lung expansion and slice selection. This area was indeterminant on prior PET study. Additional follow-up CT chest in 6 months is recommended to help confirm change versus stability. Alternatively, tissue sampling could be performed. Electronically authenticated by: PELON DAVIS Date: 04/29/2023 09:33
[2023-04-29] MEDS: TRIAMCINOLONE ACETONIDE 40 MG/ML VIAL INJ (10:20)
--- NOTE | 2023-04-29 10:35 | FL_ITS ---
[address] [address] Patient Name: MIKE PEARCE MRN: [id number] date: 1955 Sex: F Assigned Patient Location: CT Current Patient Location: CT Accession/Order Number: [id number] Exam Date: 04/29/2023 09:25 Report Date: 04/29/2023 10:59 At the request of: SAMANTHA ROLLINS Procedure: FL arthrogram shoulder EXAMINATION: FL arthrogram shoulder, FL guided needle placement HISTORY: Left shoulder pain for one year COMPARISON: No relevant comparison available. TECHNIQUE: An arthrogram was performed under fluoroscopic guidance using non-ionic contrast material in the usual sterile manner after obtaining informed consent. Standard level fluoroscopic mode of operation utilized. FINDINGS: JOINT: Left shoulder NEEDLE: 25 gauge, 3.5 spinal needle. MEDICATION: 2 mL buffered 1% lidocaine for subcutaneous anesthesia. Approximately 8 mL injected into joint space consisting of a mixture of 5 mL Omnipaque-300, 5 mL 1% Xylocaine , 40 mg Kenalog, and 0.2 mL Dotarem. TECHNIQUE: Anterior approach under fluoroscopic guidance. CLINICAL: Slight decrease in pain following the injection. COMPLICATIONS: None. OTHER: Negative. FL/FL arthrogram shoulder IMPRESSION: 1. Technically successful arthrogram without complication. 2. Please see separate MRI arthrogram report. Electronically authenticated by: PELON DAVIS Date: 04/29/2023 10:59
--- NOTE | 2023-04-29 10:35 | FL_ITS ---
[address] [address] Patient Name: MIKE PEARCE MRN: [id number] date: 1955 Sex: F Assigned Patient Location: CT Current Patient Location: CT Accession/Order Number: [id number] Exam Date: 04/29/2023 09:25 Report Date: 04/29/2023 10:59 At the request of: SAMANTHA ROLLINS Procedure: FL guided needle placement EXAMINATION: FL arthrogram shoulder, FL guided needle placement HISTORY: Left shoulder pain for one year COMPARISON: No relevant comparison available. TECHNIQUE: An arthrogram was performed under fluoroscopic guidance using non-ionic contrast material in the usual sterile manner after obtaining informed consent. Standard level fluoroscopic mode of operation utilized. FINDINGS: JOINT: Left shoulder NEEDLE: 25 gauge, 3.5 spinal needle. MEDICATION: 2 mL buffered 1% lidocaine for subcutaneous anesthesia. Approximately 8 mL injected into joint space consisting of a mixture of 5 mL Omnipaque-300, 5 mL 1% Xylocaine , 40 mg Kenalog, and 0.2 mL Dotarem. TECHNIQUE: Anterior approach under fluoroscopic guidance. CLINICAL: Slight decrease in pain following the injection. COMPLICATIONS: None. OTHER: Negative. FL/FL guided needle placement IMPRESSION: 1. Technically successful arthrogram without complication. 2. Please see separate MRI arthrogram report. Electronically authenticated by: PELON DAVIS Date: 04/29/2023 10:59
--- NOTE | 2023-04-29 11:01 | SUR.PREOP ---
04/25/23 Instructed pt on procedure, date, time, and prep
[2023-04-29] MEDS: LIDOCAINE HCL 20 ML, SODIUM BICARBONATE 2 MEQ INJ (11:12)
== END 2023-04-29 10:40 | disposition home or self-care (01) ==
LOC: CT 08:18
PROVIDERS: Radiology Diagnostic Radiology; PCP Family Medicine; Visit Provider Family Medicine
DX: M75.42 Impingement syndrome of left shoulder (principal); M75.02 Adhesive capsulitis of left shoulder; R91.8 Other nonspecific abnormal finding of lung field
CPT/HCPCS: 23350; 71250; 73222; 77002; A9575; J3301; Q9967

== ENCOUNTER 2023-05-04 13:19 | Outpatient (OUT) | payer MEDICARE, SELFPAY ==
--- NOTE | 2023-05-04 13:26 | ECG_ITS ---
[facility] Test Date: 2023-05-04 Pat Name: MIKE PEARCE Department: Room: - Gender: Female Web Developer: : 1955 Requested By: Manny Vaca Order Number: [id number] Reading MD: SAMANTHA ROLLINS Measurements Intervals [place] Rate: 59 P: -17 NE: 164 QRS: -1 QRSD: 79 T: -12 QT: 396 QTc: 393 Interpretive Statements SINUS BRADYCARDIA No acute changes Nonspecific INf Wall changes not consistent with ischemia No previous ECG available for comparison Electronically Signed On 05-06-2023 8:34:17 EST by SAMANTHA ROLLINS
[2023-05-04 14:32] LABS: Erythrocyte Sedimentation Rate 19 mm/hr (<=30)
[2023-05-05 06:09] LABS: Rheumatoid Factor (RF) 11.7 IU/mL (<14.0)
[2023-05-05 13:08] LABS: ANA Direct Negative (Negative); Anti-CCP Ab, IgG/IgA 3 units (0-19); Antiscleroderma-70 Antibodies <0.2 AI (0.0-0.9)
[2023-05-05 14:09] LABS: Angiotensin-Converting Enzyme 17 U/L (14-82)
[2023-05-06 07:11] LABS: Anti-MPO Antibodies <0.2 units (0.0-0.9); Anti-PR3 Antibodies <0.2 units (0.0-0.9); Cytoplasmic (C-ANCA) <1:20 titer (Neg:<1:20); Perinuclear (P-ANCA) <1:20 titer (Neg:<1:20)
[2023-05-06 09:10] LABS: QuantiFERON-TB Gold Plus Negative (Negative)
[2023-05-07 18:09] LABS: Aspergillus flavus Negative (Neg:<1:1); Aspergillus fumigatus Negative (Neg:<1:1); Aspergillus niger Negative (Neg:<1:1); Blastomyces Abs, Qn, DID Negative (Neg:<1:1)
[2023-05-12 15:11] LABS: Histoplasma Gal'mannan Ag Ur Negative (<0.5 ng/mL)
== END 2023-05-04 13:20 | disposition home or self-care (01) ==
LOC: PST 13:20
PROVIDERS: PCP Family Medicine; Visit Provider Internal Medicine
DX: Z01.810 Encounter for preprocedural cardiovascular examination (principal); Z01.812 Encounter for preprocedural laboratory examination; R91.8 Other nonspecific abnormal finding of lung field
CPT/HCPCS: 82164; 83516; 85652; 86037; 86038; 86200; 86235; 86431; 86480; 86606; 86612; 86698; 87385; 93005

== ENCOUNTER 2023-05-10 06:29 | Day surgery (SDC) | payer MEDICARE, SELFPAY ==
[2023-05-04 13:44] VITALS: BP 150/90; PULSE 68; RESP 20; TEMP 36.3; O2SAT 100; BMI 21.5
[2023-05-10] VITALS (11 sets, daily range): BP systolic 112–152; BP diastolic 69–86; PULSE 64–79; RESP 10–25; TEMP 36.2–36.3; O2SAT 94–100; BMI 21.4
--- NOTE | 2023-05-10 | FL_ITS ---
[address] [address] Patient Name: MIKE PEARCE MRN: [id number] date: 1955 Sex: F [facility] Current Patient Location: [facility] Accession/Order Number: [id number] Exam Date: 05/10/2023 07:25 Report Date: 05/10/2023 08:28 At the request of: BRIA ZUNIGA Procedure: FL fluoroscopy <1hr NON-READ EXAM: FL fluoroscopy <1hr NON-READ HISTORY: TECHNIQUE: FINDINGS: Please see Operative Report. Electronically authenticated by: RADIOLOGIST NO Date: 05/10/2023 08:28
--- OUTSIDE RECORDS SUMMARY | 2023-05-10 06:32 | XMS_ITS | CCD ---
Author Name Unknown Address [facility] [address] [place] [id number] Organization [facility] Care Team Providers Care Amusement Or Recreation Card Checker Name Role Phone PHYSICIAN, DEFAULT Admitting Unavailable [...] Sulfonamides (Antibiotic) Drug allergy (disorder) 10-04-[address] [facility] Repository Problems Problem Classification Problem Date [...] 05-19-2022 FREE T3 2.61 pg/mlL Normal 2.18-3.98 [facility] Comment on above: Performed By: #### T SH, T4, FT3 #### [facility] [address] [place] [address] Dr. Whitley Alston T4on 05-19-2022 T4 [Mass/Vol] 8.30 ug/dL Normal 4.80-13.90 [facility] Comment on above: Performed By: #### T SH, T4, FT3 #### [facility] [address] [address] [address] Whitley Alston TSHon 05-19-2022 TSH 3.401 uIU/mL Normal 0.358-3.740 [facility] Comment on above: Performed By: #### T SH, T4, FT3 #### [facility] [address] [place] [address] Dr[address] CT SKULL BASE [...] GLORIA PRO Date: 2022-04-24 17:[address] [facility] CBC AUTO DIFFon 04-21-2022 BASO # 0.0 103/ul Normal 0.0-0.1 [facility] Comment on above: Performed By: #### C BC #### [facility] [address] [place], [place] [address] Dr. Whitley Alston Basophils/100 WBC (Bld) 0.5 % Normal 0.2-2.0 [facility] Comment on above: Performed By: #### C BC #### [facility] [address] [place], [place] [address] Dr. Whitley Alston EO # 0.3 103/ul Normal 0.0-0.7 [facility] Comment on above: Performed By: #### C BC #### [facility] [address] [place] [address] Dr. Whitley Alston Eosinophils/100 WBC (Bld) 5.6 % Normal 0.9-7.0 [facility] Comment on above: Performed By: #### C BC #### [facility] [address] [place] [address] Dr. Whitley Alston Erythrocyte distribution width (RBC) [Ratio] 13.2 % Normal 11.0-15.0 [facility] Comment on above: Performed By: #### C BC #### [facility] [address] [place] [address] Dr. Whitley Alston Hematocrit (Bld) [Volume fraction] 42.8 % Normal 36.0-48.0 [facility] Comment on above: Performed By: #### C BC #### [facility] [address] [place] [address] Dr. Whitley Alston Hemoglobin (Bld) [Mass/Vol] 14.3 g/dL Normal 12.0-16.0 [facility] Comment on above: Performed By: #### C BC #### [facility] [address] [place] [address] Dr. Whitley Alston IG # 0.02 10e3/ul Normal 0.00-0.03 [facility] Comment on above: Performed By: #### C BC #### [facility] [address] [place] [address] Dr. Whitley Alston IG % 0.3 % Normal 0.0-0.5 [facility] Comment on above: Performed By: #### C BC #### [facility] [address] [place] [address] Dr. Whitley Alston LYMPH # 1.8 103/ul Normal 1.2-3.[address] [facility] Comment on above: Performed By: #### C BC #### [facility] [address] [place] [address] Dr. Whitley Alston Lymphocytes/100 WBC (Bld) 30.7 % Normal 20.5-60.0 [facility] Comment on above: Performed By: #### C BC #### [facility] [address] [place] [address] Dr. Whitley Alston MANUAL DIFF REQ NO Normal [facility] Comment on above: Performed By: #### C BC #### [facility] [address] [place] [address] Dr. Whitley Alston MCH (RBC) [Entitic mass] 29.2 pg Normal 26.7-34.0 [facility] Comment on above: Performed By: #### C BC #### [facility] [address] [place] [address] Dr. Whitley Alston MCHC (RBC) [Mass/Vol] 33.4 g/dL Normal 29.9-35.2 [facility] Comment on above: Performed By: #### C BC #### [facility] [address] [place] [address] Dr. Whitley Alston MCV (RBC) [Entitic vol] 87.3 fL Normal 81.0-99.0 [facility] Comment on above: Performed By: #### C BC #### [facility] [address] [place] [address] Dr. Whitley Alston MONO # 0.5 103/ul Normal 0.3-0.8 [facility] Comment on above: Performed By: #### C BC #### [facility] [address] [place] [address] Dr. Whitley Alston Monocytes/100 WBC (Bld) 9.4 % Normal 1.7-12.0 [facility] Comment on above: Performed By: #### C BC #### [facility] [address] [place] [address] Dr. Whitley Alston NEUT # 3.1 103/ul Normal 1.4-6.[address] [facility] Comment on above: Performed By: #### C BC #### [facility] [address] [place] [address] Dr. Whitley Alston Neutrophils/100 WBC (Bld) 53.5 % Normal 43.0-75.[address] [facility] Comment on above: Performed By: #### C BC #### [facility] [address] [address] [address] Whitley Alston Platelet mean volume (Bld) [Entitic vol] 10.5 fL Normal 9.5-13.5 [facility] Comment on above: Performed By: #### C BC #### [facility] [address] [place] [address] Dr. Whitley Alston PLT 271 103/ul Normal 150-[address] [facility] Comment on above: Performed By: #### C BC #### [facility] [address] [place] [address] Dr. Whitley Alston RBC 4.90 106/ul Normal 4.20-5.40 [facility] Comment on above: Performed By: #### C BC #### [facility] [address] [place] [address] Dr. Whitley Alston WBC 5.7 103/ul Normal 4.0-11.[address] [facility] Comment on above: Performed By: #### C BC #### [facility] [address] [place] [address] LUNG CANCER SCREENINGon [...] PELON DAVIS Date: 2022-04-21 11:[address] [facility] FREE THYROXINE INDEX T7on FTI 2.63 Normal 1.30-4.50 [facility] Comment on above: Performed By: #### L IPID, TSH, T7, CMP #### [facility] [address] [place] [address] Dr. Whitley Alston T3U 37.0 % Normal 30.0-39.0 [facility] Comment on above: Performed By: #### L IPID, TSH, T7, CMP #### [facility] [address] [place] [address] Dr. Whitley Alston T4 [Mass/Vol] 7.10 ug/dL Normal 4.80-13.90 [facility] Comment on above: Performed By: #### L IPID, TSH, T7, CMP #### [facility] [address] [place] [address] Dr. Whitley Alston GLYCOHEMOGLOBIN A1Con 2022 ADA RECOMMENDATION SEE BELOW Normal [facility] Comment on above: Result Comment: ADA RECOMMENDED LIMIT 4.0 - 6.0 ADA THERAPEUTIC TARGET < 7.0 ACTION SUGGESTED > 7.0 Performed By: #### A 1C #### [facility] [address] [place] [address] Dr. Whitley Alston Glucose [Mass/Vol] 105 mg/dL Normal [facility] Comment on above: Performed By: #### A 1C #### [facility] [address] [place] [address] Dr. Whitley Alston HbA1c (Bld) [Mass fraction] 5.3 % Normal 4.5-6.2 [facility] Comment on above: Performed By: #### A 1C #### [facility] [address] [place] [address] Dr. Whitley Alston IRONon 04-21-2022 Iron [Mass/Vol] 137.0 ug/dL Normal 50.0-170.0 [facility] Comment on above: Performed By: #### I KINSEY ####[facility] [address] [address]Dr. Whitley Alston LIPID PROFILEon 04-21-2022 CHOL-HDL RATIO NORM SEE BELOW Normal [facility] Comment on above: Result Comment: 3.3 - 4.4 LOW RISK 4.4 - 7.1 AVERAGE RISK 7.1 - 11.0 MODERATE RISK >11.0 HIGH RISK Performed By: #### L IPID, TSH, T7, CMP ####[facility] [address] [address]Dr. Whitley Alston Cholesterol [Mass/Vol] 250 mg/dL Critically high <=200 [facility] Comment on above: Performed By: #### L IPID, TSH, T7, CMP ####[facility] [address] [place], [place] [address]Dr. Whitley Alston Cholesterol in HDL [Mass/Vol] 111 mg/dL Critically high 40-60 [facility] Comment on above: Performed By: #### L IPID, TSH, T7, CMP ####[facility] [address] [address]Dr. Whitley Alston Cholesterol in LDL [Mass/Vol] 121.6 mg/dL Normal [facility] Comment on above: Performed By: #### L IPID, TSH, T7, CMP ####[facility] [address] [address]Dr. Whitley Alston Cholesterol.total/Ch olesterol in HDL [Mass ratio] 2.3 {ratio} Normal [facility] Comment on above: Performed By: #### L IPID, TSH, T7, CMP ####[facility] [address] [address]Dr. Whitley Alston HDL NORMAL > or = 60 mg/dl - LO W CARDIOVASCULAR RISK <40 mg/dl - HIGH CARDIOVASCULAR RISK Normal [facility] Comment on above: Performed By: #### L IPID, TSH, T7, CMP ####[facility] [address] [id number][address] Whitley Alston LDL CALC NORMAL SEE BELOW Normal [facility] Comment on above: Result Comment: <100 mg/dl OPTIMAL 100 - 129 mg/dl NEAR OR ABOVE OPTIMAL 130 - 159 mg/dl BORDERLINE HIGH 160 - 189 mg/dl HIGH >190 mg/dl VERY HIGH Performed By: #### L IPID, TSH, T7, CMP ####[facility] [address] [id number][address] Whitley Alston Triglyceride [Mass/Vol] 87 mg/dL Normal <=[address] [facility] Comment on above: Performed By: #### L IPID, TSH, T7, CMP ####[facility] [address] [address]Dr. Whitley Alston VLDL CALC 17.4 mg/dL Normal [facility] Comment on above: Performed By: #### L IPID, TSH, T7, CMP ####[facility] [address] [address]Dr. Whitley Alston PROF 14(COMP METB)on 023 Albumin [Mass/Vol] 4.1 g/dL Normal 3.4-5.0 [facility] Comment on above: Performed By: #### L IPID, TSH, T7, CMP #### [facility] [address] [address] [address] Whitley Alston Albumin/Globulin [Mass ratio] 1.2 {ratio} Normal [facility] Comment on above: Performed By: #### L IPID, TSH, T7, CMP #### [facility] [address] [address] [address] Whitley Alston ALP [Catalytic activity/Vol] 81 U/L Normal 46-[address] [facility] Comment on above: Performed By: #### L IPID, TSH, T7, CMP #### [facility] [address] [address] [address] Whitley Alston ALT [Catalytic activity/Vol] 24 U/L Normal 14-59 [facility] Comment on above: Performed By: #### L IPID, TSH, T7, CMP #### [facility] [address] [place] [address] Dr. Whitley Alston Anion gap [Moles/Vol] 11.0 mmol/L Normal [facility] Comment on above: Performed By: #### L IPID, TSH, T7, CMP #### [facility] [address] [place] [address] Dr. Whitley Alston AST [Catalytic activity/Vol] 18 U/L Normal 15-37 [facility] Comment on above: Performed By: #### L IPID, TSH, T7, CMP #### [facility] [address] [place] [address] Dr. Whitley Alston Bilirubin [Mass/Vol] 0.7 mg/dL Normal 0.2-1.0 [facility] Comment on above: Performed By: #### L IPID, TSH, T7, CMP #### [facility] [address] [place] [address] Dr. Whitley Alston Calcium [Mass/Vol] 9.7 mg/dL Normal 8.5-10.1 [facility] Comment on above: Performed By: #### L IPID, TSH, T7, CMP #### [facility] [address] [place] [address] Dr. Whitley Alston Chloride [Moles/Vol] 106 mmol/L Normal 98-107 [facility] Comment on above: Performed By: #### L IPID, TSH, T7, CMP #### [facility] [address] [place] [address] Dr. Whitley Alston CO2 [Moles/Vol] 27.1 mmol/L Normal 21.0-32.0 [facility] Comment on above: Performed By: #### L IPID, TSH, T7, CMP #### [facility] [address] [place] [address] Dr. Whitley Alston Creatinine [Mass/Vol] 0.78 mg/dL Normal 0.55-1.02 [facility] Comment on above: Performed By: #### L IPID, TSH, T7, CMP #### [facility] [address] [place], [place] [id number] Dr. Whitley Alston EGFR-AF TRINIDADIAN >60 Normal >=60 [facility] Comment on above: Performed By: #### L IPID, TSH, T7, CMP #### [facility] [address] [address] [address] Whitley Alston EGFR-NON AF TRINIDADIAN >60 Normal >=60 [facility] Comment on above: Performed By: #### L IPID, TSH, T7, CMP #### [facility] [address] [address] [address] Whitley Alston Globulin (S) [Mass/Vol] 3.5 g/dL Normal [facility] Comment on above: Performed By: #### L IPID, TSH, T7, CMP #### [facility] [address] [place] [address] Dr. Whitley Alston Glucose [Mass/Vol] 107 mg/dL Critically high 74-106 [facility] Comment on above: Performed By: #### L IPID, TSH, T7, CMP #### [facility] [address] [place] [address] Dr. Whitley Alston Potassium [Moles/Vol] 4.1 mmol/L Normal 3.5-5.1 [facility] Comment on above: Performed By: #### L IPID, TSH, T7, CMP #### [facility] [address] [place] [address] Dr. Whitley Alston Protein [Mass/Vol] 7.6 g/dL Normal 6.4-8.2 [facility] Comment on above: Performed By: #### L IPID, TSH, T7, CMP #### [facility] [address] [place] [address] Dr. Whitley Alston Sodium [Moles/Vol] 140 mmol/L Normal 136-145 [facility] Comment on above: Performed By: #### L IPID, TSH, T7, CMP #### [facility] [address] [address] [address] Whitley Alston Urea nitrogen [Mass/Vol] 12.0 mg/dL Normal 7.0-18.0 [facility] Comment on above: Performed By: #### L IPID, TSH, T7, CMP #### [facility] [address] [place], [place] [address] Dr. Whitley Alston Urea nitrogen/Creatinine [Mass ratio] 15.4 mg/mg Normal [facility] Comment on above: Performed By: #### L IPID, TSH, T7, CMP #### [facility] [address] [place], [place] [address] Dr. Whitley Alston TSHon 04-21-2022 TSH 4.624 uIU/mL Critically high 0.358-3.740 [facility] Comment on above: Performed By: #### L IPID, TSH, T7, CMP #### [facility] [address] [place], [place] [address] Dr. Whitley Alston Encounters Encounter Date Encounter Type Care Provider Facility Start: 05-19-2022 End: 05-20-[address] SAMANTHA ROLLINS . Facility:[facility] Start: 04-24-2022 End: 04-25-[address] SAMANTHA ROLLINS . Facility:[facility] Start: 04-21-2022 End: 04-22-[address] SAMANTHA ROLLINS . Facility: Start: 05-15-2018 End: 05-16-2018 Patient encounter procedure DEFAULT PHYSICIAN Facility:[facility] Start: 04-13-2018 End: 04-14-2018 Patient encounter procedure DEFAULT PHYSICIAN Facility:[facility] Payers Date Payer Category Payer Unknown [id number] 1955 Unknown [id number] 1955 Unknown [id number] 1955 Unknown [id number] [id number] 1955 Unknown [id number] [id number] 1955 Unknown [id number] 2.16.84 [id number] Unknown Summary Purpose Family History No Family History Records FoundNo Family History Records Found Advance Directives No Advanced Directives Records FoundNo Advanced Directives Records Found Additional Source Comments INFORMATION SOURCE (unrecogn ized section and content) DATE CREATED AUTHOR 05/16/2018 [facility] DATE CREATED AUTHOR AUTHOR'S ANABEL ATLOWELL 05/28/2022 [facility] FOR RECORDS PERTAINING TO PATIENTS WHO [...] ON THE PRIMARY CLINICAL RECORDS. [facility] [employer] [facility]. provides no warranty or guarantee of the accuracy or completeness of information in this document.
[2023-05-10] MEDS: LACTATED RINGER'S SOLUTION 1,000 ML 50 ML IV (07:00)
[2023-05-10] MEDS: LIDOCAINE HCL 1% 100 MG/10 ML MDV 5 ML INJ (07:58)
--- NOTE | 2023-05-10 08:13 | XR_ITS ---
The [address] [address] Patient Name: MIKE PEARCE MRN: [id number] date: 1955 Sex: F [facility] Current Patient Location: [facility] Accession/Order Number: [id number] Exam Date: 05/10/2023 08:40 Report Date: 05/10/2023 08:56 At the request of: BRIA ZUNIGA Procedure: XR chest 1V EXAMINATION: XR chest 1V HISTORY: DEBBY nodule, s/p bronch - eval for pneumothorax COMPARISON: 04/29/2023 TECHNIQUE: AP portable erect FINDINGS: LUNGS: 4.2 x 3.5 cm focal infiltrate in the left upper to midlung zone. The right lung is clear. VASCULATURE: No increased pulmonary vasculature. PLEURA: No pneumothorax, effusion, or pleural thickening. CARDIAC: No cardiomegaly or cardiac silhouette abnormality. MEDIASTINUM: No visible mass or adenopathy. BONES: No fracture or visible bone lesion. OTHER: Negative. XR/XR chest 1V IMPRESSION: Left upper lung zone opacity/infiltrate with no pneumothorax Electronically authenticated by: ESA ROBERTS Date: 05/10/2023 08:56
--- NOTE | 2023-05-13 08:31 | P.ON_ITS ---
Date of procedure: 05/10/23 Procedure: Procedure Diagnostic flexible bronchoscopy with bronchoalveolar lavage (BAL) and transb ronchial biopsies Indication Suspicious left upper lobe nodule Findings No endobronchial lesions. Final diagnosis pending pathology. Anesthesia 1. General anesthesia - please see their records 2. Lidocaine 1% - 5mL Specimens 1. BAL left upper lobe 2. Transbronchial biopsies left upper lobe Estimated blood loss <1mL Complications None Fluoroscopy time 23 seconds Description Informed consent was obtained after risks, benefits, and alternatives were discussed with the patient.? Time out was initiated to confirm the correct patient, site, and procedure with all present voicing in the affirmative. Patient was brought to the operating room suite where noninvasive monitoring was utilized.? Sedation & anesthesia were administered by the anesthesia department- please refer to their records for further information.? Tape was placed over the patient's eyes to prevent spillage of secretions.? An endotracheal tube was placed by anesthesia. Due to the endotracheal tube, the larynx, vocal cords, and proximal trachea were unable to be examined. The distal trachea was visualized without any gross tracheal lesions. 5mL of 1% lidocaine were instilled topically to the main radha.? The main radha was sharp without splaying or evidence of underlying mass. The bronchoscope was then advanced through the right main bronchus to the right upper lobe, where the apical, posterior, and anterior segments were visualized.? The bronchoscope was advanced through the bronchus intermedius to the right middle lobe or the medial and lateral segments visualized.? The bronchoscope was then advanced to the right lower lobe superior, medial, anterior, lateral, and posterior basilar segments.? No endobronchial lesions, exudate, or other abnormalities were noted. The bronchoscope was retracted to the main radha and advanced through the left main bronchus to the left upper lobe where the upper division apicoposterior and anterior, as well as lingular superior and inferior segments were visualized.? The bronchoscope was then advanced into the left lower lobe where the superior, anteromedial, lateral, and posterior basilar segments visualized.? No endobronchial lesions, exudate, or other abnormalities were noted. The bronchoscope was wedged into the anterior segment of the left upper lobe upper division. A bronchoalveolar lavage was obtained from this segment. Once adequate fluid was obtained in the trap, approximately 6 transbronchial biopsies under fluoroscopic guidance were obtained from the aforementioned segment. There was miniscule bleeding which spontaneously stopped without intervention on my part. The bronchoscope was withdrawn.? Patient tolerated procedure well. Post- operative chest x-ray was obtained, without any gross evidence of iatrogenic pneumothorax identified. Condition: stable Disposition: same day
== END 2023-05-10 09:10 | disposition home or self-care (01) ==
LOC: SURGOUT 06:29
PROVIDERS: PCP Family Medicine; Visit Provider Internal Medicine
PROC: (CPT 31624; principal; 2023-05-10 07:30)
DX: R91.8 Other nonspecific abnormal finding of lung field (principal); J43.2 Centrilobular emphysema; F17.219 Nicotine dependence, cigarettes, with unspecified nicotine-induced disorders; I10 Essential (primary) hypertension
CPT/HCPCS: 31624; 31628; 36415; 71045; 76000; 87070; 87075; 87102; 87116; 87150; 87186; 87205; 87206; 88112; 88305; 99999; J1094; J2704

== ENCOUNTER 2023-05-20 08:30 | Outpatient (OUT) | payer MEDICARE, SELFPAY ==
--- OUTSIDE RECORDS SUMMARY | 2023-05-20 08:34 | XMS_ITS | CCD ---
Author Name Unknown Address [facility] [address] [place] [address] Organization [facility] Care Team Providers Care Faculty Research Assistant Name Role Phone PHYSICIAN, DEFAULT Admitting Unavailable [...] SINGH Consulting Unavailable POLICARO, GLORIA Consulting Unavailable Samsa - TB, Manny Attending Unavailable Samsa - TB, Manny Admitting Unavailable Allergies Allergy Classification Reported Allergen(s) Allergy Type Date of Onset Reaction(s) Facility (1 source) Sulfonamides (Antibiotic) Drug allergy (disorder) 10-04-2012 [facility] Repository Problems Problem Classification Problem Date Documented [...] Test Name Value Interpretation Reference Range Facility [facility] 05-10-2023 L Specimen: Received: 05/11/23 Status: ANTOINE Abad Num: [id number] Spec Type: Cytology Subm Dr: Manny Vaca DO Tissues: A BRONDESH (LT UPPER LOBE) Procedures: HE/2, Gross/Micro L4, Cyto Prepstain, PAPSTN Age/ Patient Sex Location Account Attending Physician Isabelle Babcock 68/F LABELL [id number] Manny Vaca DO SPEC NUM: [id number] RECD: 05/11/23 STATUS: ANTOINE ABAD NUM: [id number] NILESH: 05/10/23- DR: Manny Vaca DO ENTERED: 05/11/[address]: Dewayne,Lab SPEC TYPE: Cytology DEPT: TOBY MUÑIZ ENTERED BY: [id number] RECV BY: [id number] ORDERED: HE/2, Gross/Micro L4, Cyto Prepstain, PAPSTN ORDERED: HE/2, Gross/Micro L4, Cyto Prepstain, PAPSTN Pathological Diagnosis Left upper lobe of lung, bronchial alveolar lavage fluid, cytology: -Negative for malignant cells -Occasional histiocytes, lymphocytes, and PMNs are intermixed with few bronchial epithelial cells, including at least rare reactive respiratory epithelial cells, consistent with at least mild underlying acute inflammation of the respiratory airway -Cell block section also showing similar findings CPT: 98979, 94284 Gross Description Received fresh labeled with the patient's name, date of and left upper lobe lavage per requisition is 5 ml colorless clear unfixed fluid. 1 Thin Prep slides are prepared. 1 cell blocks are prepared. (CC/nh) Specimen: [id number] Received: 05/11/23 Status: ANTOINE Abad Num: [id number] Spec Type: Cytology Subm Dr: Manny Vaca DO Tissues: A BRONWASH (LT UPPER LOBE) Procedures: HE/2, Gross/Micro L4, Cyto Prepstain, PAPSTN Patient: Isabelle Babcock [id number] (Continued) Signed (signature on file) Tomas Alston MD 05/12/23 1831 [facility] L Specimen: [id number] Received: 05/10/23 Status: ANTOINE Abad Num: [id number] Spec Type: Surgical Subm Dr: Manny Vaca DO Tissues: A Lung - Transbroncial Biopsy (LT UPPER LOBE) Procedures: HE/2, Gross/Micro L4, RECUT/2 Age/ Patient Sex Location Account Attending Physician Isabelle Babcock 68/F [place] [id number] Manny Vaca DO SPEC NUM: [id number] RECD: 05/10/23 STATUS: ANTOINE REQ NUM: [id number] NILESH: 05/10/[address]: Manny Vaca DO ENTERED: 05/10/[address]: Rafa Buchanan SPEC TYPE: Surgical DEPT: TOBY [facility] ORDERED: HE/2, Gross/Micro L4, RECUT/2 ORDERED: HE/2, Gross/Micro L4, RECUT/2 Pathological Diagnosis Lung nodule, left upper lobe, transbronchial biopsy: -Benign bronchial alveolar lung parenchyma with mild nodular fibrosis of the bronchial wall and the surrounding adjacent alveolar septae, and with few admixed and lightly pigmented histiocytes within the alveolar spaces, suggesting effect of manifest of the chronic smoking, including respiratory bronchiolitis and/or respiratory bronchiolitis interstitial lung disease if there are also clinical or radiological evidence of centrilobular nodular interstitial lung fibrosis -No malignancy, obvious granuloma, significant chronic inflammation other than few alveolar macrophages, or epithelial atypia identifiable NOTE: -The proxy pathologist sign out the case for the originally assigned staff Clinical Information Multiple pulmonary nodules Gross Description Received in formalin labeled with the patient's name, date of and left upper lobe biopsies are four little tissues ranging from 0.3 cm to 0.5 x 0.3 x 0.2 cm. Entirely submitted in one cassette labeled A1. Specimen: [id number] Received: 05/10/23 Status: ANTOINE Abad Num: [id number] Spec Type: Surgical Subm Dr: Manny Vaca DO Tissues: A Lung - Transbroncial Biopsy (LT UPPER LOBE) Procedures: HE/2, Gross/Micro L4, RECUT/2 Patient: Isabelle Babcock [id number] (Continued) Specimen: [id number] Received: 05/10/23 (Continued) Signed (signature on file) Tomas Alston MD 05/17/23 1504 Specimen: [id number] Received: 05/10/23 Status: ANTOINE Abad Num: [id number] Spec Type: Surgical Subm Dr: Manny Vaca DO Tissues: A Lung - Transbroncial Biopsy (LT UPPER LOBE) Procedures: HE/2, Gross/Micro L4, RECUT/2 Patient: Isabelle Babcock [id number] (Continued) Specimen: [id number] Received: 05/10/23 (Continued) CPT Codes 07726 Specimen: [id number] Received: 05/10/23 Status: ANTOINE Abad Num: [id number] Spec Type: Surgical Subm Dr: Manny Vaca DO Tissues: A Lung - Transbroncial Biopsy (LT UPPER LOBE) Procedures: DEMOND/2, Gross/Micro L4, RECUT/2 Patient: Isabelle Babcock [id number] (Continued) Signed (signature on file) Chin-Epifanio Alston MD 05/17/23 1504 [facility] FREE T3on 05-19-2022 FREE T3 2.61 pg/mlL Normal 2.18-3.98 [facility] Comment on above: Performed By: #### T SH, T4, FT3 #### [facility] [address] [place] [address] Dr. Whitley Alston T4on 05-19-2022 T4 [Mass/Vol] 8.30 ug/dL Normal 4.80-13.90 [facility] Comment on above: Performed By: #### T SH, T4, FT3 #### [facility] [address] [place] [address] Dr. Whitley Alston TSHon 05-19-2022 TSH 3.401 uIU/mL Normal 0.358-3.740 [facility] Comment on above: Performed By: #### T SH, T4, FT3 #### [facility] [address] [place] [address] Dr[address] SKULL BASE [...] GLORIA PRO Date: 2022-04-24 17:22 Normal [facility] CBC AUTO DIFFon 04-21-2022 BASO # 0.0 103/ul Normal 0.0-0.1 [facility] Comment on above: Performed By: #### C BC #### [facility] [address] [place] [address] Dr. Yilan Alston Basophils/100 WBC (Bld) 0.5 % Normal 0.2-2.0 [facility] Comment on above: Performed By: #### C BC #### [facility] [address] [place] [address] Dr. Whitley Alston EO # 0.3 103/ul Normal 0.0-0.7 [facility] Comment on above: Performed By: #### C BC #### [facility] [address] [place] [address] Dr. Whitley Alston Eosinophils/100 WBC (Bld) 5.6 % Normal 0.9-7.0 [facility] Comment on above: Performed By: #### C BC #### [facility] [address] [place] [address] Dr. Whitley Alston Erythrocyte distribution width (RBC) [Ratio] 13.2 % Normal 11.0-15.0 [facility] Comment on above: Performed By: #### C BC #### [facility] [address] [place] [address] Dr. Whitley Alston Hematocrit (Bld) [Volume fraction] 42.8 % Normal 36.0-48.0 [facility] Comment on above: Performed By: #### C BC #### [facility] [address] [place] [address] Dr. Whitley Alston Hemoglobin (Bld) [Mass/Vol] 14.3 g/dL Normal 12.0-16.0 [facility] Comment on above: Performed By: #### C BC #### [facility] [address] [place] [address] Dr. Whitley Alston IG # 0.02 10e3/ul Normal 0.00-0.03 [facility] Comment on above: Performed By: #### C BC #### [facility] [address] [place] [address] Dr. Whitley Alston IG % 0.3 % Normal 0.0-0.5 [facility] Comment on above: Performed By: #### C BC #### [facility] [address] [place] [address] Dr. Whitley Alston LYMPH # 1.8 103/ul Normal 1.2-3.8 [facility] Comment on above: Performed By: #### C BC #### [facility] [address] [place] [address] Dr. Whitley Alston Lymphocytes/100 WBC (Bld) 30.7 % Normal 20.5-60.0 [facility] Comment on above: Performed By: #### C BC #### [facility] [address] [place] [address] Dr. Whitley Alston MANUAL DIFF REQ NO Normal [facility] Comment on above: Performed By: #### C BC #### [facility] [address] [place] [address] Dr. Whitley Alston MCH (RBC) [Entitic mass] 29.2 pg Normal 26.7-34.0 [facility] Comment on above: Performed By: #### C BC #### [facility] [address] [place] [address] Dr. Whitley Alston MCHC (RBC) [Mass/Vol] 33.4 g/dL Normal 29.9-35.2 [facility] Comment on above: Performed By: #### C BC #### [facility] [address] [place] [address] Dr. Whitley Alston MCV (RBC) [Entitic vol] 87.3 fL Normal 81.0-99.0 [facility] Comment on above: Performed By: #### C BC #### [facility] [address] [place] [address] Dr. Whitley Alston MONO # 0.5 103/ul Normal 0.3-0.8 [facility] Comment on above: Performed By: #### C BC #### [facility] [address] [place] [address] Dr. Whitley Alston Monocytes/100 WBC (Bld) 9.4 % Normal 1.7-12.0 [facility] Comment on above: Performed By: #### C BC #### [facility] [address] [place] [address] Dr. Whitley Alston NEUT # 3.1 103/ul Normal 1.4-6.5 [facility] Comment on above: Performed By: #### C BC #### [facility] [address] [place] [address] Dr. Whitley Alston Neutrophils/100 WBC (Bld) 53.5 % Normal 43.0-75.0 [facility] Comment on above: Performed By: #### C BC #### [facility] [address] [place] [address] Dr. Whitley Alston Platelet mean volume (Bld) [Entitic vol] 10.5 fL Normal 9.5-13.5 [facility] Comment on above: Performed By: #### C BC #### [facility] [address] [place] [address] Dr. Whitley Altson PLT 271 103/ul Normal 150-450 [facility] Comment on above: Performed By: #### C BC #### [facility] [address] [place] [address] Dr. Whitley Alston RBC 4.90 106/ul Normal 4.20-5.40 [facility] Comment on above: Performed By: #### C BC #### [facility] [address] [place] [address] Dr. Whitley Alston WBC 5.7 103/ul Normal 4.0-11.0 [facility] Comment on above: Performed By: #### C BC #### [facility] [address] [place] [address] LUNG CANCER SCREENINGon 0 04-21-2022 [...] PELON DAVIS Date: 2022-04-21 11:38 Normal [facility] FREE THYROXINE INDEX T7on FTI 2.63 Normal 1.30-4.50 [facility] Comment on above: Performed By: #### L IPID, TSH, T7, CMP #### [facility] [address] [address] [address] Whitley Alston T3U 37.0 % Normal 30.0-39.0 [facility] Comment on above: Performed By: #### L IPID, TSH, T7, CMP #### [facility] [address] [address] [address] Whitley Alston T4 [Mass/Vol] 7.10 ug/dL Normal 4.80-13.90 [facility] Comment on above: Performed By: #### L IPID, TSH, T7, CMP #### [facility] [address] [address] [address] Whitley Alston GLYCOHEMOGLOBIN A1Con 2022 ADA RECOMMENDATION SEE BELOW Normal [facility] Comment on above: Result Comment: ADA RECOMMENDED LIMIT 4.0 - 6.0 ADA THERAPEUTIC TARGET < 7.0 ACTION SUGGESTED > 7.0 Performed By: #### A 1C #### [facility] [address] [place] [address] Dr. Whitley Alston Glucose [Mass/Vol] 105 mg/dL Normal [facility] Comment on above: Performed By: #### A 1C #### [facility] [address] [place], [place] [address] Dr. Whitley Alston HbA1c (Bld) [Mass fraction] 5.3 % Normal 4.5-6.2 [facility] Comment on above: Performed By: #### A 1C #### [facility] [address] [place], [place] [address] Dr. Whitley Alston IRONon 04-21-2022 Iron [Mass/Vol] 137.0 ug/dL Normal 50.0-170.0 [facility] Comment on above: Performed By: #### I KINSEY ####[facility] [id number] [id number]. Whitley Alston LIPID PROFILEon 04-21-2022 CHOL-HDL RATIO NORM SEE BELOW Normal [facility] Comment on above: Result Comment: 3.3 - 4.4 LOW RISK 4.4 - 7.1 AVERAGE RISK 7.1 - 11.0 MODERATE RISK >11.0 HIGH RISK Performed By: #### L IPID, TSH, T7, CMP ####[facility] [address] [id number]. Whitley Alston Cholesterol [Mass/Vol] 250 mg/dL Critically high <=200 [facility] Comment on above: Performed By: #### L IPID, TSH, T7, CMP ####[facility] [address] [place], [place] [address]Co. Whitley Alston Cholesterol in HDL [Mass/Vol] 111 mg/dL Critically high 40-60 [facility] Comment on above: Performed By: #### L IPID, TSH, T7, CMP ####[facility] [address] [place], [place] [address]No. Whitley Alston Cholesterol in LDL [Mass/Vol] 121.6 mg/dL Normal [facility] Comment on above: Performed By: #### L IPID, TSH, T7, CMP ####[facility] [address] [place], [place] [address]Js. Whitley Alston Cholesterol.total/Ch olesterol in HDL [Mass ratio] 2.3 {ratio} Normal [facility] Comment on above: Performed By: #### L IPID, TSH, T7, CMP ####[facility] [address] [id number]. Whitley Alston HDL NORMAL > or = 60 mg/dl - LO W CARDIOVASCULAR RISK <40 mg/dl - HIGH CARDIOVASCULAR RISK Normal [facility] Comment on above: Performed By: #### L IPID, TSH, T7, CMP ####[facility] [address] [address]Dr. Whitley Alston LDL CALC NORMAL SEE BELOW Normal [facility] Comment on above: Result Comment: <100 mg/dl OPTIMAL 100 - 129 mg/dl NEAR OR ABOVE OPTIMAL 130 - 159 mg/dl BORDERLINE HIGH 160 - 189 mg/dl HIGH >190 mg/dl VERY HIGH Performed By: #### L IPID, TSH, T7, CMP ####[facility] [address] [address]Dr. Whitley Alston Triglyceride [Mass/Vol] 87 mg/dL Normal <=150 [facility] Comment on above: Performed By: #### L IPID, TSH, T7, CMP ####[facility] [address] [id number] Alston VLDL CALC 17.4 mg/dL Normal [facility] Comment on above: Performed By: #### L IPID, TSH, T7, CMP ####[facility] [address] [id number] Alston PROF 14(COMP METB)on 023 Albumin [Mass/Vol] 4.1 g/dL Normal 3.4-5.0 [facility] Comment on above: Performed By: #### L IPID, TSH, T7, CMP #### [facility] [address] [address] [address] Whitley Alston Albumin/Globulin [Mass ratio] 1.2 {ratio} Normal [facility] Comment on above: Performed By: #### L IPID, TSH, T7, CMP #### [facility] [address] [address] [address] Whitley Alston ALP [Catalytic activity/Vol] 81 U/L Normal 46-116 [facility] Comment on above: Performed By: #### L IPID, TSH, T7, CMP #### [facility] [address] [place] [address] Dr. Whitley Alston ALT [Catalytic activity/Vol] 24 U/L Normal 14-59 [facility] Comment on above: Performed By: #### L IPID, TSH, T7, CMP #### [facility] [address] [place] [address] Dr. Whitley Alston Anion gap [Moles/Vol] 11.0 mmol/L Normal [facility] Comment on above: Performed By: #### L IPID, TSH, T7, CMP #### [facility] [address] [place] [address] Dr. Whitley Alston AST [Catalytic activity/Vol] 18 U/L Normal 15-37 [facility] Comment on above: Performed By: #### L IPID, TSH, T7, CMP #### [facility] [address] [place] [address] Dr. Whitley Alston Bilirubin [Mass/Vol] 0.7 mg/dL Normal 0.2-1.0 [facility] Comment on above: Performed By: #### L IPID, TSH, T7, CMP #### [facility] [address] [place] [address] Dr. Whitley Alston Calcium [Mass/Vol] 9.7 mg/dL Normal 8.5-10.1 [facility] Comment on above: Performed By: #### L IPID, TSH, T7, CMP #### [facility] [address] [place] [address] Dr. Whitley Alston Chloride [Moles/Vol] 106 mmol/L Normal 98-107 [facility] Comment on above: Performed By: #### L IPID, TSH, T7, CMP #### [facility] [address] [place] [address] Dr. Whitley Alston CO2 [Moles/Vol] 27.1 mmol/L Normal 21.0-32.0 [facility] Comment on above: Performed By: #### L IPID, TSH, T7, CMP #### [facility] [address] [address] [address] Whitley Alston Creatinine [Mass/Vol] 0.78 mg/dL Normal 0.55-1.02 [facility] Comment on above: Performed By: #### L IPID, TSH, T7, CMP #### [facility] [address] [address] [address] Whitley Alston EGFR-AF NIGERIEN >60 Normal >=60 [facility] Comment on above: Performed By: #### L IPID, TSH, T7, CMP #### [facility] [address] [address] [address] Whitley Alston EGFR-NON AF NIGERIEN >60 Normal >=60 [facility] Comment on above: Performed By: #### L IPID, TSH, T7, CMP #### [facility] [address] [address] [address] Whitley Alston Globulin (S) [Mass/Vol] 3.5 g/dL Normal [facility] Comment on above: Performed By: #### L IPID, TSH, T7, CMP #### [facility] [address] [address] [address] Whitley Alston Glucose [Mass/Vol] 107 mg/dL Critically high 74-106 T [facility] Comment on above: Performed By: #### L IPID, TSH, T7, CMP #### [facility] [address] [address] [address] Whitley Alston Potassium [Moles/Vol] 4.1 mmol/L Normal 3.5-5.1 [facility] Comment on above: Performed By: #### L IPID, TSH, T7, CMP #### [facility] [address] [address] [address] Whitley Alston Protein [Mass/Vol] 7.6 g/dL Normal 6.4-8.2 [facility] Comment on above: Performed By: #### L IPID, TSH, T7, CMP #### [facility] [address] [address] [address] Whitley Alston Sodium [Moles/Vol] 140 mmol/L Normal 136-145 [facility] Comment on above: Performed By: #### L IPID, TSH, T7, CMP #### [facility] [address] [address] [address] Whitley Alston Urea nitrogen [Mass/Vol] 12.0 mg/dL Normal 7.0-18.0 [facility] Comment on above: Performed By: #### L IPID, TSH, T7, CMP #### [facility] [address] [address] [address] Whitley Alston Urea nitrogen/Creatinine [Mass ratio] 15.4 mg/mg Normal [facility] Comment on above: Performed By: #### L IPID, TSH, T7, CMP #### [facility] [address] [address] [address] Whitley Alston TSHon 04-21-2022 TSH 4.624 uIU/mL Critically high 0.358-3.740 [facility] Comment on above: Performed By: #### L IPID, TSH, T7, CMP #### [facility] [address] [address] [address] Whitley Alston Encounters Encounter Date Encounter Type Care Provider Facility Start: 05-10-2023 End: 05-10-2023 ambulatory [facility] Facility:[facility] Start: 05-19-2022 End: 05-20-[address] SAMANTHA ROLLINS . Facility: Start: 04-24-2022 End: 04-25-[address] SAMANTHA ROLLINS . Facility: Start: 04-21-2022 End: 04-22-[address] SAMANTHA ROLLINS . Facility: Start: 05-15-2018 End: 05-16-2018 Patient encounter procedure DEFAULT PHYSICIAN Facility:[facility] Start: 04-13-2018 End: 04-14-2018 Patient encounter procedure DEFAULT PHYSICIAN Facility:[facility] Payers Date Payer Category Payer Self-pay 1957 Unknown [id number] 1955 Unknown [id number] 2.16.8 [id number] 1955 Unknown [id number] 2.16.8 [id number] 1957 Unknown [id number] 2.16.84 [id number] 1957 Unknown [id number] 2.16.84 [id number] 1957 Unknown [id number] 2.16.84 [id number] Unknown Summary Purpose Family History No Family History Records FoundNo Family History Records FoundNo Family History Records Found Advance Directives No Advanced Directives Records FoundNo Advanced Directives Records FoundNo Advanced Directives Records Found Additional Source Comments INFORMATION SOURCE (unrecogn ized section and content) DATE CREATED AUTHOR 05/16/2018 [facility] DATE CREATED AUTHOR AUTHOR'S ORGANIZ ATION 05/28/2022 [facility] DATE CREATED AUTHOR AUTHOR'S ORGANIZ ATION 05/19/[address] [facility] FOR RECORDS PERTAINING TO PATIENTS WHO [...] BE BASED ON THE PRIMARY CLINICAL RECORDS. [employer] provides no warranty or guarantee of the accuracy or completeness of information in this document.
--- NOTE | 2023-05-20 09:00 | RT_ITS ---
[facility] Test Date: 2023-05-20 Pat Name: MIKE PEARCE Department: Room: - Gender: Female Plating Stripper: Sheree Reis RRT : 1955 Requested By: Manny Vaca Order Number: [id number] Reading MD: Manny Vaca Interpretive Statements Pulmonary function testing was completed according to ATS criteria. Findings were considered accurate and reproducible. Both pre- and post-bronchodilator values utilized for spirometry. Spirometry (based on pre-bronchodilator values): -FEV1/FVC: Reduced @ 61% -FEV1: Moderately reduced @ 58% -FVC: Reduced @ 71% -PMB59-21%: Reduced @ 30% -There is no significant bronchodilator response. Lung volumes by plethysmography (based on pre-bronchodilator values): -RV: Increased @ 175% -TLC: High normal @ 118% Diffusion capacity: -DLCO: Mild reduction @ 71% when corrected for Hb 13.6g/dL -Normal shape -Moderate obstructive pattern Impressions: Spirometry suggests moderate obstruction. There is no bronchodilator response. An elevated RV suggests air trapping. There is a mildly reduced diffusion capacity. Overall study compatible with COPD/emphysema. Clinical correlation is required. Electronically Signed On 05-24-2023 16:33:50 EDT by Manny Vaca
[2023-05-20] MEDS: ALBUTEROL SULFATE 2.5 MG/3 ML VIAL NEB IH (09:41)
== END 2023-05-20 08:31 | disposition home or self-care (01) ==
LOC: CARD 08:31
PROVIDERS: PCP Family Medicine; Visit Provider Internal Medicine
DX: J43.2 Centrilobular emphysema (principal)
CPT/HCPCS: 94060; 94726; 94729; 99406

== ENCOUNTER 2023-08-10 08:33 | Outpatient (OUT) | payer MEDICARE, SELFPAY ==
--- NOTE | 2023-08-10 08:36 | CT_ITS ---
[address] [address] Patient Name: MIKE PEARCE MRN: [id number] date: 1955 Sex: F Assigned Patient Location: CT Current Patient Location: CT Accession/Order Number: [id number] Exam Date: 08/10/2023 08:45 Report Date: 08/10/2023 09:35 At the request of: BRIA ZUNIGA Procedure: CT chest wo con EXAMINATION: CT chest wo con HISTORY: Respiratory Bronchiolitis Interstitial Lung Disease J84.115 COMPARISON: CT chest 04/29/2023 TECHNIQUE: Multi-planar CT images were obtained without and/or with IV contrast as indicated by examination type. Axial, Coronal, and Sagittal images. Dose reduction techniques were achieved by using automated exposure control and/or adjustment of mA and/or kV according to patient size and/or use of iterative reconstruction technique. FINDINGS: LUNGS: Stable size of a 2.8 x 2.4 cm geographic shaped opacity within anterior inferior left upper lobe/lingula with new thickened opacity extending to the anterior medial left lung base versus fluid within a fissure. Stable mild emphysematous changes. Stable 5 x 6 mm nodule within lateral left lung base. PLEURA: No mass, effusion, or pneumothorax. VASCULATURE: No abnormality. QUINN: No mass or adenopathy. MEDIASTINUM: No mass or adenopathy. CARDIAC: No enlargement or pericardial thickening.. Coronary artery calcifications: AORTA: No aneurysm or dissection. CHEST WALL: No mass or axillary adenopathy. BONES: No bone lesion or fracture. LIMITED ABDOMEN: No suspicious findings Limited images of the upper abdomen. OTHER: Negative. CT/CT chest wo con IMPRESSION: 1. New stranding extending from lingua opacity to diaphragm of uncertain etiology. Consider PET imaging at this time or followup CT Chest in 3 months to evaluate for additional progression vs improvement. Electronically authenticated by: PELON DAVIS Date: 08/10/2023 09:35
--- OUTSIDE RECORDS SUMMARY | 2023-08-10 08:37 | XMS_ITS ---
Patient Summarization (C-CDA 2.1 CCD) Created on: August 10, 2023 YokoIsabelle : 1955 Sex: Female Author Organization Sample organization Care Team Providers Care Manager Track Name Role Phone PHYSICIAN, DEFAULT Admitting Unavailable [...] SINGH Consulting Unavailable POLICARO, GLORIA Consulting Unavailable [facility], Manny Attending Unavailable [facility] - [facility], Manny Admitting Unavailable Allergies Allergy Classification Reported Allergen(s) Allergy Type Date of Onset Reaction(s) Facility (1 source) Sulfonamides (Antibiotic) Drug allergy (disorder) 10-04-2012 [facility] Repository Encounters Encounter Date Encounter Type Care Provider Facility Start: 05-10-2023 End: 05-10-2023 ambulatory Manny Vaca [facility] Facility:[facility] Start: 05-19-2022 End: 05-20-[address] SAMANTHA Moss Facility:[facility] Start: 04-24-2022 End: 04-25-[address] SAMANTHA Moss Facility:[facility] Start: 04-21-2022 End: 04-22-[address] SAMANTHA Moss Facility: Start: 05-15-2018 End: 05-16-2018 Patient encounter procedure DEFAULT PHYSICIAN Facility:[facility] Start: 04-13-2018 End: 04-14-2018 Patient encounter procedure DEFAULT PHYSICIAN Facility:[facility] Payers Date Payer Category Payer Self-pay 1957 Unknown [id number] 1955 Unknown [id number] [id number] 1955 Unknown [id number] 2.16.8 [id number] 1955 Unknown [id number] 2.16.84 [id number] 1955 Unknown [id number] 2.16.84 [id number] 1955 Unknown [id number] 2.16.84 [id number] Unknown Problems Problem Classification Problem Date Documented Da [...] Test Name Value Interpretation Reference Range Facility [facility] 05-10-2023 L Specimen: [id number] Received: 05/10/23 Status: ANTOINE Martinezq Num: [id number] Spec Type: Surgical Subm Dr: Manny Vaca DO Tissues: A Lung - Transbroncial Biopsy (LT UPPER LOBE) Procedures: HE/2, Gross/Micro L4, RECUT/2 Age/ Patient Sex Location Account Attending Physician Isabelle Babcock 68/F LABELL [id number] Manny Vaca DO SPEC NUM: [id number] RECD: 05/10/23 STATUS: ANTOINE ABAD NUM: [id number] NILESH: 05/10/[address]: Manny Vaca DO ENTERED: 05/10/[address]: Rafa Buchanan SPEC TYPE: Surgical DEPT: [...] submitted in one cassette labeled A1. Specimen: [id number] Received: 05/10/23 Status: ANTOINE Abad Num: [id number] Spec Type: Surgical Subm Dr: Manny Vaca DO Tissues: A Lung - Transbroncial Biopsy (LT UPPER LOBE) Procedures: HE/2, Gross/Micro L4, RECUT/2 Patient: Isabelle Babcock [id number] (Continued) Specimen: [id number] Received: 05/10/23 (Continued) Signed (signature on file) Tomas Alston MD 05/17/23 1504 Specimen: [id number] Received: 05/10/23 Status: ANTOINE Abad Num: [id number] Spec Type: Surgical Subm Dr: Manny Vaca DO Tissues: A Lung - Transbroncial Biopsy (LT UPPER LOBE) Procedures: HE/2, Gross/Micro L4, RECUT/2 Patient: Isabelle Babcock [id number] (Continued) Specimen: [id number] Received: 05/10/23 (Continued) CPT Codes 97198 Specimen: [id number] Received: 05/10/23 Status: ANTOINE Abad Num: [id number] Spec Type: Surgical Subm Dr: Manny Vaca DO Tissues: A Lung - Transbroncial Biopsy (LT UPPER LOBE) Procedures: HE/2, Gross/Micro L4, RECUT/2 Patient: Isabelle Babcock [id number] (Continued) Signed (signature on file) Charles-Epifanio Alston MD 05/17/23 1504 [facility] L Specimen: Received: 05/11/23 Status: ANTOINE Abad Num: [id number] Spec Type: Cytology Subm Dr: Manny Vaca DO Tissues: A [facility] (LT UPPER LOBE) Procedures: HE/2, Gross/Micro L4, Cyto Prepstain, PAPSTN Age/ Patient Sex Location Account Attending Physician Isabelle Babcock 68/F LABELL [id number] Manny Vaca DO SPEC NUM: [id number] RECD: 05/11/23 STATUS: ANTOINE ABAD NUM: [id number] NILESH: 05/10/23- SUBM DR: Manny Vaca DO ENTERED: 05/11/[address] [facility] [address]: Dewayne,Rafa SPEC TYPE: Cytology DEPT: TOBY MUÑIZ ENTERED BY: [id number] RECV BY: [id number] ORDERED: HE/2, Gross/Micro L4, Cyto Prepstain, PAPSTN [...] block section also showing similar findings CPT: 16705, 99018 Gross Description Received fresh labeled with the patient's name, date of and left upper lobe lavage per requisition is 5 ml colorless clear unfixed fluid. 1 Thin Prep slides are prepared. 1 cell blocks are prepared. (CC/nh) Specimen: [id number] Received: 05/11/23 Status: ANTOINE Abad Num: [id number] Spec Type: Cytology Subm Dr: Manny Vaca DO Tissues: A [facility] (LT UPPER LOBE) Procedures: HE/2, Gross/Micro L4, Cyto Prepstain, PAPSTN Patient: BabcockIsabelle [id number] (Continued) Signed (signature on file) Tomas Alston MD 05/12/23 1831 [facility] FREE T3on 05-19-2022 FREE T3 2.61 pg/mlL Normal 2.18-3.98 [facility] Comment on above: Performed By: #### T SH, T4, FT3 #### [facility] [address] [place], [place] [address] Dr. Whitley Alston T4on 05-19-2022 T4 [Mass/Vol] 8.30 ug/dL Normal 4.80-13.90 [facility] Comment on above: Performed By: #### T SH, T4, FT3 #### [facility] [address] [place], [place] [address] Dr. Whitley Alston TSHon 05-19-2022 TSH 3.401 uIU/mL Normal 0.358-3.740 [facility] Comment on above: Performed By: #### T SH, T4, FT3 #### [facility] [address] [place] [address] [address] Al[address] PET CT SKULL BASE [...] GLORIA PRO Date: 2022-04-24 17:22 Normal [facility] CBC AUTO DIFFon 04-21-2022 BASO # 0.0 103/ul Normal 0.0-0.1 [facility] Comment on above: Performed By: #### C BC #### [facility] [address] [place] [address] Dr. Whitley Alston Basophils/100 WBC (Bld) 0.5 % Normal 0.2-2.0 [facility] Comment on above: Performed By: #### C BC #### [facility] [address] [address] [address] Whitley Alston EO # 0.3 103/ul Normal 0.0-0.7 [facility] Comment on above: Performed By: #### C BC #### [facility] [address] [place] [address] Dr. Whitley Alston Eosinophils/100 WBC (Bld) 5.6 % Normal 0.9-7.0 [facility] Comment on above: Performed By: #### C BC #### [facility] [address] [place] [address] Dr. Whitley Alston Erythrocyte distribution width (RBC) [Ratio] 13.2 % Normal 11.0-15.0 [facility] Comment on above: Performed By: #### C BC #### [facility] [address] [place] [address] Dr. Whitley Alston Hematocrit (Bld) [Volume fraction] 42.8 % Normal 36.0-48.0 [facility] Comment on above: Performed By: #### C BC #### [facility] [address] [place] [address] Dr. Whitley Alston Hemoglobin (Bld) [Mass/Vol] 14.3 g/dL Normal 12.0-16.0 [facility] Comment on above: Performed By: #### C BC #### [facility] [address] [place] [address] Dr. Whitley Alston IG # 0.02 10e3/ul Normal 0.00-0.03 [facility] Comment on above: Performed By: #### C BC #### [facility] [address] [place] [address] Dr. Whitley Alston IG % 0.3 % Normal 0.0-0.5 [facility] Comment on above: Performed By: #### C BC #### [facility] [address] [place] [address] Dr. Whitley Alston LYMPH # 1.8 103/ul Normal 1.2-3.8 [facility] Comment on above: Performed By: #### C BC #### [facility] [address] [place] [address] Dr. Whitley Alston Lymphocytes/100 WBC (Bld) 30.7 % Normal 20.5-60.0 [facility] Comment on above: Performed By: #### C BC #### [facility] [address] [place] [address] Dr. Whitley Alston MANUAL DIFF REQ NO Normal [facility] Comment on above: Performed By: #### C BC #### [facility] [address] [place] [address] Dr. Whitley Alston MCH (RBC) [Entitic mass] 29.2 pg Normal 26.7-34.0 [facility] Comment on above: Performed By: #### C BC #### [facility] [address] [place] [address] Dr. Whitley Alston MCHC (RBC) [Mass/Vol] 33.4 g/dL Normal 29.9-35.2 [facility] Comment on above: Performed By: #### C BC #### [facility] [address] [place] [address] Dr. Whitley Alston MCV (RBC) [Entitic vol] 87.3 fL Normal 81.0-99.0 [facility] Comment on above: Performed By: #### C BC #### [facility] [address] [place] [address] Dr. Whitley Alston MONO # 0.5 103/ul Normal 0.3-0.8 [facility] Comment on above: Performed By: #### C BC #### [facility] [address] [place] [address] Dr. Whitley Alston Monocytes/100 WBC (Bld) 9.4 % Normal 1.7-12.0 [facility] Comment on above: Performed By: #### C BC #### [facility] [address] [place] [address] Dr. Whitley Alston NEUT # 3.1 103/ul Normal 1.4-6.5 [facility] Comment on above: Performed By: #### C BC #### [facility] [address] [place] [address] Dr. Whitley Alston Neutrophils/100 WBC (Bld) 53.5 % Normal 43.0-75.0 [facility] Comment on above: Performed By: #### C BC #### [facility] [address] [place] [address] Dr. Whitley Alston Platelet mean volume (Bld) [Entitic vol] 10.5 fL Normal 9.5-13.5 [facility] Comment on above: Performed By: #### C BC #### [facility] [address] [place] [address] [address] Whitley Alston PLT 271 103/ul Normal 150-450 [facility] Comment on above: Performed By: #### C BC #### [facility] [address] [place] [address] [address] Whitley Alston RBC 4.90 106/ul Normal 4.20-5.40 [facility] Comment on above: Performed By: #### C BC #### [facility] [address] [place] [address] [address] Whitley Alston WBC 5.7 103/ul Normal 4.0-11.0 [facility] Comment on above: Performed By: #### C BC #### [facility] [address] [place] [address] [address] LUNG CANCER SCREENINGon [...] PELON DAVIS Date: 2022-04-21 11:38 Normal [facility] FREE THYROXINE INDEX T7on FTI 2.63 Normal 1.30-4.50 [facility] Comment on above: Performed By: #### L IPID, TSH, T7, CMP #### [facility] [address] [address] [address] Whitley Alston T3U 37.0 % Normal 30.0-39.0 [facility] Comment on above: Performed By: #### L IPID, TSH, T7, CMP #### [facility] [address] [place] [address] [address] Whitley Alston T4 [Mass/Vol] 7.10 ug/dL Normal 4.80-13.90 [facility] Comment on above: Performed By: #### L IPID, TSH, T7, CMP #### [facility] [address] [place] [address] [address] Whitley Alston GLYCOHEMOGLOBIN A1Con 2022 ADA RECOMMENDATION SEE BELOW Normal [facility] Comment on above: Result Comment: ADA RECOMMENDED LIMIT 4.0 - 6.0 ADA THERAPEUTIC TARGET < 7.0 ACTION SUGGESTED > 7.0 Performed By: #### A 1C #### [facility] [address] [address] [address] Whitley Alston Glucose [Mass/Vol] 105 mg/dL Normal [facility] Comment on above: Performed By: #### A 1C #### [facility] [address] [place] [address] [address] Whitley Alston HbA1c (Bld) [Mass fraction] 5.3 % Normal 4.5-6.2 [facility] Comment on above: Performed By: #### A 1C #### [facility] [address] [address] [address] Whitley Alston IRONon 04-21-2022 Iron [Mass/Vol] 137.0 ug/dL Normal 50.0-170.0 [facility] Comment on above: Performed By: #### I KINSEY ####[facility] [address] [place] [address]Dr. Whitley Alston LIPID PROFILEon 04-21-2022 CHOL-HDL RATIO NORM SEE BELOW Normal [facility] Comment on above: Result Comment: 3.3 - 4.4 LOW RISK 4.4 - 7.1 AVERAGE RISK 7.1 - 11.0 MODERATE RISK >11.0 HIGH RISK Performed By: #### L IPID, TSH, T7, CMP ####[facility] [address] [place] [id number]. Whitley Alston Cholesterol [Mass/Vol] 250 mg/dL Critically high <=200 [facility] Comment on above: Performed By: #### L IPID, TSH, T7, CMP ####[facility] [address] [place] [id number]. Whitley Alston Cholesterol in HDL [Mass/Vol] 111 mg/dL Critically high 40-60 [facility] Comment on above: Performed By: #### L IPID, TSH, T7, CMP ####[facility] [address] [place] [address]Dr. Whitley Alston Cholesterol in LDL [Mass/Vol] 121.6 mg/dL Normal [facility] Comment on above: Performed By: #### L IPID, TSH, T7, CMP ####[facility] [address] [place] [id number]. Whitley Alston Cholesterol.total/Ch olesterol in HDL [Mass ratio] 2.3 {ratio} Normal [facility] Comment on above: Performed By: #### L IPID, TSH, T7, CMP ####[facility] [address] [place] [id number][address] Jenniferyoon Gamaliel HDL NORMAL > or = 60 mg/dl - LO W CARDIOVASCULAR RISK <40 mg/dl - HIGH CARDIOVASCULAR RISK Normal [facility] Comment on above: Performed By: #### L IPID, TSH, T7, CMP ####[facility] [address] [place] [id number]. Whitley Alston LDL CALC NORMAL SEE BELOW Normal [facility] Comment on above: Result Comment: <100 mg/dl OPTIMAL 100 - 129 mg/dl NEAR OR ABOVE OPTIMAL 130 - 159 mg/dl BORDERLINE HIGH 160 - 189 mg/dl HIGH >190 mg/dl VERY HIGH Performed By: #### L IPID, TSH, T7, CMP ####[facility] [address] [place] [address]Dr. Whitley Alston Triglyceride [Mass/Vol] 87 mg/dL Normal <=150 [facility] Comment on above: Performed By: #### L IPID, TSH, T7, CMP ####[facility] [address] [place] [address]Dr. Whitley Alston VLDL CALC 17.4 mg/dL Normal [facility] Comment on above: Performed By: #### L IPID, TSH, T7, CMP ####[facility] [address] [place] [address]Dr. Whitley Alston PROF 14(COMP METB)on 023 Albumin [Mass/Vol] 4.1 g/dL Normal 3.4-5.0 [facility] Comment on above: Performed By: #### L IPID, TSH, T7, CMP #### [facility] [address] [place] [address] [address] Whitley Alston Albumin/Globulin [Mass ratio] 1.2 {ratio} Normal [facility] Comment on above: Performed By: #### L IPID, TSH, T7, CMP #### [facility] [address] [address] [address] Whitley Alston ALP [Catalytic activity/Vol] 81 U/L Normal 46-116 [facility] Comment on above: Performed By: #### L IPID, TSH, T7, CMP #### [facility] [address] [place] [address] [address] Whitley Alston ALT [Catalytic activity/Vol] 24 U/L Normal 14-59 [facility] Comment on above: Performed By: #### L IPID, TSH, T7, CMP #### [facility] [address] [place] [address] [address] Whitley Alston Anion gap [Moles/Vol] 11.0 mmol/L Normal [facility] Comment on above: Performed By: #### L IPID, TSH, T7, CMP #### [facility] [address] [place] [address] [address] Whitley Alston AST [Catalytic activity/Vol] 18 U/L Normal 15-37 [facility] Comment on above: Performed By: #### L IPID, TSH, T7, CMP #### [facility] [address] [place] [address] Dr. Whitley Alston Bilirubin [Mass/Vol] 0.7 mg/dL Normal 0.2-1.0 [facility] Comment on above: Performed By: #### L IPID, TSH, T7, CMP #### [facility] [address] [address] [address] Whitley Alston Calcium [Mass/Vol] 9.7 mg/dL Normal 8.5-10.1 [facility] Comment on above: Performed By: #### L IPID, TSH, T7, CMP #### [facility] [address] [place] [address] Dr. Whitley Alston Chloride [Moles/Vol] 106 mmol/L Normal 98-107 [facility] Comment on above: Performed By: #### L IPID, TSH, T7, CMP #### [facility] [address] [place] [address] Dr. Whitley Alston CO2 [Moles/Vol] 27.1 mmol/L Normal 21.0-32.0 [facility] Comment on above: Performed By: #### L IPID, TSH, T7, CMP #### [facility] [address] [place] [address] Dr. Whitley Alston Creatinine [Mass/Vol] 0.78 mg/dL Normal 0.55-1.02 [facility] Comment on above: Performed By: #### L IPID, TSH, T7, CMP #### [facility] [address] [place] [address] Dr. Whitley Alston EGFR-AF SRI LANKAN >60 Normal >=60 [facility] Comment on above: Performed By: #### L IPID, TSH, T7, CMP #### [facility] [address] [place] [address] Dr. Whitley Alston EGFR-NON AF SRI LANKAN >60 Normal >=60 [facility] Comment on above: Performed By: #### L IPID, TSH, T7, CMP #### [facility] [address] [place] [address] [address] Whitley Alston Globulin (S) [Mass/Vol] 3.5 g/dL Normal [facility] Comment on above: Performed By: #### L IPID, TSH, T7, CMP #### [facility] [address] [place] [address] [address] Whitley Alston Glucose [Mass/Vol] 107 mg/dL Critically high 74-106 T [facility] [place] Comment on above: Performed By: #### L IPID, TSH, T7, CMP #### [facility] [address] [place] [address] Dr. Whitley Alston Potassium [Moles/Vol] 4.1 mmol/L Normal 3.5-5.1 [facility] Comment on above: Performed By: #### L IPID, TSH, T7, CMP #### [facility] [address] [place] [address] [address] Whitley Alston Protein [Mass/Vol] 7.6 g/dL Normal 6.4-8.2 [facility] Comment on above: Performed By: #### L IPID, TSH, T7, CMP #### [facility] [address] [place] [address] Dr. Whitley Alston Sodium [Moles/Vol] 140 mmol/L Normal 136-145 [facility] Comment on above: Performed By: #### L IPID, TSH, T7, CMP #### [facility] [address] [place] [address] Dr. Whitley Alston Urea nitrogen [Mass/Vol] 12.0 mg/dL Normal 7.0-18.0 [facility] Comment on above: Performed By: #### L IPID, TSH, T7, CMP #### [facility] [address] [place] [address] Dr. Whitley Alston Urea nitrogen/Creatinine [Mass ratio] 15.4 mg/mg Normal [facility] Comment on above: Performed By: #### L IPID, TSH, T7, CMP #### [facility] [address] [place], [place] [address] Dr. Whitley Alston TSHon 04-21-2022 TSH 4.624 uIU/mL Critically high 0.358-3.740 [facility] Comment on above: Performed By: #### L IPID, TSH, T7, CMP #### [facility] [address] [place], [place] [address] Dr. Whitley Alston Summary Purpose Family History No Family History Records FoundNo Family History Records FoundNo Family History Records Found Advance Directives No Advanced Directives Records FoundNo Advanced Directives Records FoundNo Advanced Directives Records Found Additional Source Comments INFORMATION SOURCE (unrecogn ized section and content) DATE CREATED AUTHOR 05/16/2018 [facility] DATE CREATED AUTHOR AUTHOR'S ORGANIZ ATION 05/28/2022 [facility] DATE CREATED AUTHOR AUTHOR'S ORGANIZ ATION 05/19/2023 [facility] FOR RECORDS PERTAINING TO PATIENTS WHO ARE [...] BE BASED ON THE PRIMARY CLINICAL RECORDS. [facility] [employer] [facility]. provides no warranty or guarantee of the accuracy or completeness of information in this document.
== END 2023-08-10 08:34 | disposition home or self-care (01) ==
LOC: CT 08:33
PROVIDERS: PCP Family Medicine; Visit Provider Internal Medicine
DX: J84.115 Respiratory bronchiolitis interstitial lung disease (principal)
CPT/HCPCS: 71250

== ENCOUNTER 2023-11-14 09:16 | Outpatient (OUT) | payer MEDICARE, SELFPAY ==
--- NOTE | 2023-11-14 09:21 | CT_ITS ---
[address] [address] Patient Name: MIKE PEARCE MRN: [id number] date: 1955 Sex: F Assigned Patient Location: CT Current Patient Location: Accession/Order Number: [id number] Exam Date: 11/14/2023 09:30 Report Date: 11/15/2023 06:31 At the request of: BRIA ZUNIGA Procedure: CT chest wo con EXAMINATION: CT chest wo con HISTORY: Multiple Pulmonary Nodules R91.8 ; follow-up left lung stranding COMPARISON: CT chest 08/10/2023, 04/21/2022, PET/CT 04/24/2022 report TECHNIQUE: Axial, Coronal, and Sagittal images were created without the administration of IV contrast material. Dose reduction techniques were achieved by using automated exposure control and/or adjustment of mA and/or kV according to patient size and/or use of iterative reconstruction technique. FINDINGS: LUNGS: Mild emphysematous changes. Stable 6 mm nodule within lateral basilar segment of left lower lobe. Stable left upper lobe stranding/patchy opacity. PLEURA: No mass, effusion, or pneumothorax. VASCULATURE: No abnormality. QUINN: No mass or pathologic adenopathy. MEDIASTINUM: No mass or pathologic adenopathy. CARDIAC: No enlargement, pericardial thickening, or pericardial effusion. Coronary Artery calcifications: AORTA: No aneurysm or dissection. CHEST WALL: No mass or axillary adenopathy BONES: No bone lesion or fracture. LIMITED ABDOMEN: No suspicious findings. Limited images of the upper abdomen. OTHER: Negative. CT/CT chest wo con IMPRESSION: 1. 1. Stable nonspecific irregular patchy and strandy opacity within left upper lobe, suspicious in appearance, but unchanged compared to 04/21/2022. Prior's PET/CT showed low activity. Consider additional follow-up in one year to document continued stability. 2. Stable nonspecific 6 mm nodule within left lower lobe. Electronically authenticated by: PELON DAVIS Date: 11/15/2023 06:31
== END 2023-11-14 09:17 | disposition home or self-care (01) ==
LOC: CT 09:16
PROVIDERS: PCP Family Medicine; Visit Provider Internal Medicine
DX: R91.8 Other nonspecific abnormal finding of lung field (principal)
CPT/HCPCS: 71250

== ENCOUNTER 2024-09-06 09:53 | Outpatient (OUT) | payer MEDICARE, SELFPAY ==
--- OUTSIDE RECORDS SUMMARY | 2023-11-15 04:30 | XMS_ITS ---
Author Organization [facility] [place] Address [address] [place] [address] Care Team Providers Care Terrazzo Roller Name Role Phone Uche Rod Primary Care Provider [phone] Nola Manny Unavailable [phone] Allergies Allergen (clinical drug ingredient) Drug/Non Drug Allergy documented on EMR Reaction Allergy Type Onset Date Status Substance with sulfonamide structure and antibacterial mechanism of action (substance) Sulfa Antibiotics hives Drug Allergy Active REASON FOR VISIT 3MO-ABN CHEST CT Medications Medication SIG (Take, Route, Frequency, Duration) Notes Start Date End Date Status Lisinopril 10 MG TAKE 1 TABLET BY EVERY DAY for 90 Active Albuterol Sulfate HFA 108 (90 Base) MCG/ACT INHALE 2 PUFFS BY MOUTH 4 TIMES A DAY NEEDED for 25 Active Social History Tobacco Use: Social History Observation Description Date Details (start date - stop date) Current Smoker NA - NA Tobacco Use/Smoking Question Answer Notes Patient is a current smoker How often do you smoke cigarettes? every day How many cigarettes a day do you smoke? 21-30 How soon after you wake up d o you smoke your first cigarette? 6-30 minutes Are you interested in quitting? Not ready to damion t Additional Findings: Tobacco User Heavy cigarett e smoker (20-39 cigs/day) Tobacco Control (Standard) Question Answer Notes Tobacco use: Current every day smoker Additional Findings: Tobacco user Very heavy cig arette smoker (40+ cigs/day) Vital Signs Temperature 96.4 degrees Fahrenheit 11/15/19 24 Blood pressure systolic 154 mm Hg 11/15/19 24 Blood pressure diastolic 88 mm Hg 024 Heart Rate 64 /min 11/15/2023 Respiratory Rate 18 /min 11/15/2023 Height 63 in 11/15/2023 Weight 123.2 lbs 11/15/2023 BMI 21.82 kg/m2 11/15/2023 Oximetry 96 % 11/15/2023 Encounters Encounter Location Date Provider Diagnosis [facility] [place] [address] [place] [address] 11/15/2023 Manny Vaca Multiple pulmonary nodules R91.8 ; Centrilobular emphysema J43.2 ; Respiratory bronchiolitis interstitial lung disease J84.115 ; Cigarette nicotine dependence with nicotine-induced disorder F17.219 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 Bronchoscopy with transbronchial biopsies performed on 05/10/2023. Follow-up chest CT 11/14/2023 showed stability of this irregularity. Prior PET/04/24/2022 showed SUV 2.2. Will continue to monitor for now with a chest CT in 1 year. 11/15/2023 Centrilobular emphysema (ICD-10 - J43.2) Prior treatment: Breo 100, Symbicort 160 Patient remains symptomatic. She does not use Symbicort because of the taste. She believes she used some sort of Respimat device, but does not remember if it were Spiriva or Stiolto. Discussed options are somewhat limited, especially if she continues to smoke. Brought up Ohtuvayre (ensifentine), a novel PDE3/PDE4 inhibitor, which can only be administered via nebulizer, as an option. The patient admitted that she really never gave Symbicort a fair shake because the taste. I explained that a taste really should not be a significantly mitigating factor for using a medication, especially if its only transient for 5 minutes. I discussed techniques such as drinking something pleasurable afterwards-she states she does like fresh honey crisp apple cider. I suggested she drink that immediately after using the Symbicort. She stated that she would try this approach. I reiterated that the typical dose is 2 puffs twice daily. She will work on this and now we will reevaluate her within the next 3 months. 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 Treatment is smoking cessation -once again, smoking cessation was strongly advised today. 11/15/2023 Cigarette nicotine dependence with nicotine-induced disorder (ICD-10 - F17.219) Yet again I discussed smoking cessation with the patient. She declined any intervention at this time. She stated if you just see my cupboard with all the stopping smoking medications in there... 11/15/2023 jail (current) use of inhaled steroids (ICD-10 - Z79.51) Patient was counseled to rinse & gargle with water after inhaled corticosteroid use. Plan Of Treatment Treatment Notes Assessment Notes Multiple pulmonary nodules Essentially unchanged 2.8cm DEBBY nodule/irregularity on chest CT 08/10/2023 compared to 04/29/2023. Bronchoscopy with transbronchial biopsies performed on 05/10/2023. Follow-up chest CT 11/14/2023 showed stability of this irregularity. Prior PET/04/24/2022 showed SUV 2.2. Will continue to monitor for now with a chest CT in 1 year. Centrilobular emphysema Prior treatment: Breo 100, Symbicort 160 Patient remains symptomatic. She does not use Symbicort because of the taste. She believes she used some sort of Respimat device, but does not remember if it were Spiriva or Stiolto. Discussed options are somewhat limited, especially if she continues to smoke. Brought up Ohtuvayre (ensifentine), a novel PDE3/PDE4 inhibitor, which can only be administered via nebulizer, as an option. The patient admitted that she really never gave Symbicort a fair shake because the taste. I explained that a taste really should not be a significantly mitigating factor for using a medication, especially if its only transient for 5 minutes. I discussed techniques such as drinking something pleasurable afterwards-she states she does like fresh honey crisp apple cider. I suggested she drink that immediately after using the Symbicort. She stated that she would try this approach. I reiterated that the typical dose is 2 puffs twice daily. She will work on this and now we will reevaluate her within the next 3 months. 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 Treatment is smoking cessation -once again, smoking cessation was strongly advised today. Cigarette nicotine dependenc e with nicotine-induced disorder Yet again I discussed smoking cessation with the patient. She declined any intervention at this time. She stated if you just see my cupboard with all the stopping smoking medications in there... jail (current) use of i nhaled steroids Patient was counseled to rinse & gargle with water after inhaled corticosteroid use. Future Test Test Name Order Date CT Chest w/o contrast 11/05/2024 Next Appt Details Follow Up: 3 Months, Reason: COPD Provider Name:Mannyrupesh May, 11/21/2024 09:00:00 AM, [address] [place], [address], Procedure Notes * Category Sub-Category Detail Notes Alpha-1 Antitrypsin Screening Date: 08/16/2023 Genotype: MS Progress Notes * BABCOCK, Isabelle LDOB:[birth year] (68 yo F)Acc No.[id number]:11/15/2023 Follow Up Patient: Isabelle BLANTON Provider: Jennifer Vaca DO :1955 A ge:68 Y S ex:Female Date:11/15/2023 Address:[address] [place], [place] [id number] Pcp:Uche Rod Check In:08:23 AM ESTCheck O ut:09:08 AM EST Subjective: * Chief Complaints: * [address] MO-AB[address] * HPI: G eneral: Patient had CT scan recently done. Reviewed results with patient. CT from 11/14/2023 compared to 11/10/2023 and 04/21/2022 revealed stable left upper lobe 2.8 cm strandy irregular opacity and stable 6 mm left lower lobe nodule. The suspicious left upper lobe opacity was previously evaluated by PET on 04/24/2022 with SUV of 2.2. The patient denies any decreased appetite or unexplained weight loss, excessive night sweats, fevers, or hemoptysis. The patient has Symbicort but states that has a horrible taste and just does not use it. Albuterol helps open her up but this does not last long enough. She has daily symptoms of a productive cough, sometimes difficult to expectorate during the day. Cough is worse in the morning upon awakening. 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 Explained that this does not cause clinically significant disease. She does not recall that her children have any pulmonary disease. MA Intake Comments:. Patient presents for a follow-up after a CT Chest performed on 11/14/2023. Patient admits to smoking 1ppd or more. Patient states she is not using Symbicort due to the horrible taste. Patient reports using her rescue inhaler. Patient complains of Cough, SOB, fevers, chills and night sweats. Patient denies hemoptysis. * ROS: G eneral/Constitutional: Fever or sweats d enies. C hange of appetite d ecreased. C hills d enies. W eight Change n o current change. H EENT: Dry mouth d enies. S ore throat d enies. O ral Ulcers d enies. P ost Nasal Drip D enies. C ongestion D enies. H oarseness�Denies. C ardiovascular: Tachycardia d enies. C hest pain d enies. P alpitations d enies. R espiratory: Chest tightness d enies. P leurisy D enies. D yspnea w ith exertion. C ough d aily productive cough of thick sputum, worse in the mornings. H emoptysis d enies. W heezing d enies. G astrointestinal: Acid Reflux/GERD/Heartburn d enies. D ysphagia d enies. M usculoskeletal: Arthralgias/joint pain D enies. S kin: Easy bruising d enies. R loida d enies. � N eurologic: Seizures d enies. T remor d enies. H ematology: Abnormal Bleeding d enies. P sychiatric: Anxiety d enies. * Active Problem List J43.2 Centrilobular emphys odalys Modified On:05/31/2023 Status:confirmed J84.115 Respiratory bronchio litis interstitial lung disease Modified On:05/17/2023 Status:confirmed F17.219 Cigarette nicotine d ependence with nicotine-induced disorder Modified On:05/17/2023 Status:confirmed R91.8 Multiple pulmonary n odules Modified On:05/17/2023 Status:confirmed Z14.8 Alpha 1-antitrypsin PiMS phenotype Modified On:09/13/2023 Status:confirmed R91.1 Lung nodule Modified On:05/02/2023 Status:confirmed R91.8 Lung mass Modified On:05/02/2023 Status:confirmed M75.02 Frozen shoulder, lef t Modified On:04/21/2023 Status:confirmed M75.40 Shoulder impingement Modified On:04/21/2023 Status:confirmed I10 Hypertension Modified On:04/21/2023 Status:confirmed Z01.818 Pre-op exam Modified On:05/17/2023 Status:confirmed 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 M other: , lung cancer, Non Hodgkins lymphoma-B Cell, diagnosed with Diabetes mellitus without mention of complication, type II or unspecified type, not stated as uncontrolled. S ister(s): alive, breast cancer, atrial fib, Cerebral vascular accident, Histoplasmosis, diagnosed with Unspecified heart disease. D tori(s): alive. 5 sister(s) . 2 daughter(s) - healthy. . * Social History: T obacco Use: T obacco Control (Standard) T obacco use: C urrent every day smoker A dditional Findings: Tobacco user V justyna heavy cigarette smoker (40+ cigs/day) Electronic Cigarette use C urrent user N o Is there smoking in the household? O ther: Y es Spouse LM: Additional Tobacco Questions N umber of Years Pt Smoked: 5 3 N umber of Packs per Day: 1 .5 Tobacco Use/Smoking P atient is a c urrent smoker H ow often do you smoke cigarettes? e very day H ow many cigarettes a day do you smoke? 2 1-30 H ow soon after you wake up do you smoke your first cigarette? 6 -30 minutes A re you interested in quitting? N ot ready to quit A dditional Findings: Tobacco User H eavy cigarette smoker (20-39 cigs/day) M iscellaneous: O ccupation O ccupation: R etired [employer] Pets: dog. D rugs/Alcohol: D rugs H ave you used drugs other than those for medical reasons in the past 12 months? Y es M arijuana? Y es Occasional T ype: S moking D oes the Patient have a History of Drug Abuse in the Past? Y es Caffeine I ntake: 1 -2 cups per day Coffee/Tea Do you drink alcohol?: Yes, Socially. Do you smoke marijuana?: Admits. * Medications: T akingAlbuterol Sulfate HFA 108 (90 Base) MCG/ACT Aerosol Solution INHALE 2 PUFFS BY MOUTH 4 TIMES A DAY NEEDED Lisinopril 10 MG Tablet TAKE 1 TABLET BY MOUTH EVERY DAY Taking Albuterol Sulfate HFA 108 (90 Base) MCG/ACT Aerosol Solution INHALE 2 PUFFS BY MOUTH 4 TIMES A DAY NEEDED Taking Lisinopril 10 MG Tablet TAKE 1 TABLET BY MOUTH EVERY DAY DiscontinuedSymbicort(Budesonide-Formoterol Fumarate) 160-4.5 MCG/ACT Aerosol 2 puffs Inhalation bid Medication List reviewed and reconciled with the patientDiscontinued Symbicort(Budesonide-Formoterol Fumarate) 160-4.5 MCG/ACT Aerosol 2 puffs Inhalation bid Medication List reviewed and reconciled with the patient * Allergies: S ulfa Antibiotics: hives - Allergyno[Allergies Verified] Objective: * Vitals: W t:123.2lbs, Ht: 63 in, BP:sittin/88mm Hg, Temp:Forehead:96.4F, HR:64/min, RR:18/min, BMI:21.82Index, Oxygen sat %:Room Air:96%, Ht-cm: 160.02 cm, Wt-k.88 kg. * Examination: E xam: GENERAL APPEARANCE: A ppears stated age. Skin N ormal. Mouth P ink and moist. No candidiasis. Oropharynx M allampati Class II. Trachea M idline. Chest N ormal. Respiratory Normal M ovements, E ffort N ormal. Auscultation B reath sounds diminished. Mild moist rhonchi in the bases, mild expiratory wheezes. Cardiac R egular rate and rhythm. Gastrointestinal N ormal. Vascular N o edema. Musculoskeletal N ormal posture. Neurological F ocal, intact. Psychiatric A lert and oriented x3. Mentation/Cognition C arti. Assessment: * Assessment: 1. M ultiple pulmonary nodules - R91.8 (Primary) 2 . C entrilobular emphysema - J43.2�3. R espiratory bronchiolitis interstitial lung disease - J84.115 4 . C igarette nicotine dependence with nicotine-induced disorder - F17.219 5 . L yinka term (current) use of inhaled steroids - Z79.51 Plan: * Treatment: 2. C entrilobular emphysema Notes: Prior treatment: Breo 100, Symbicort 160 Patient remains symptomatic. She does not use Symbicort because of the taste. She believes she used some sort of Respimat device, but does not remember if it were Spiriva or Stiolto. Discussed options are somewhat limited, especially if she continues to smoke. Brought up Ohtuvayre (ensifentine), a novel PDE3/PDE4 inhibitor, which can only be administered via nebulizer, as an option. The patient admitted that she really never gave Symbicort a fair shake because the taste. I explained that a taste really should not be a significantly mitigating factor for using a medication, especially if its only transient for 5 minutes. I discussed techniques such as drinking something pleasurable afterwards-she states she does like fresh honey crisp apple cider. I suggested she drink that immediately after using the Symbicort. She stated that she would try this approach. I reiterated that the typical dose is 2 puffs twice daily. She will work on this and now we will reevaluate her within the next 3 months. 3. 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 Treatment is smoking cessation -once again, smoking cessation was strongly advised today. 4. C igarette nicotine dependence with nicotine-induced disorder Notes: Yet again I discussed smoking cessation with the patient. She declined any intervention at this time. She stated if you just see my cupboard with all the stopping smoking medications in there... � 5. L yinka term (current) use of inhaled steroids Notes: Patient was counseled to rinse & gargle with water after inhaled corticosteroid use. * Procedures: A lpha-1 Antitrypsin: Screening Date: . Genotype: M S. * Procedure Codes: * Preventive Medicine: COVID Vaccination: H as patient had COVID Vaccination? COVID Vaccination N o Patient Refused Immunization Status: P neumovacc P t Refused. I nfluenza P t Refused. Screenings/Counseling: F ALL RISK SCREENING Fall Risk Assessment: N o falls in the past year Are you afraid of falling? Y es T OBACCO ACTION PLAN Patient counselled on the dangers of tobacco use and urged to quit. 0 11/15/2023 Cessation counseling provided 0 11/15/2023 F IVANA EXCLUSION Reason: P atient Reason refused/declined Type of Patient Reason: D rug declined by patient * Follow Up: 3 Months (Reason: COPD) * * Sign off status: Completed Visit Status: C HK (Check Out) true * Provider: Jennifer Vaca DO Date: 0 11/15/2023 Generated for Ngoc wiley/Jose/Toniaitting on: 0 09/06/2024 10:04 AM EDT History and Physical Notes * HPI (History of Present Illness) Category Sub-Category Detail Notes Category Not es General Patient present s for a follow-up after a CT Chest performed on 11/14/2023. Patient admits to smoking 1ppd or more. Patient states she is not using Symbicort due to the horrible taste. Patient reports using her rescue inhaler. Patient complains of Cough, SOB, fevers, chills and night sweats. Patient denies hemoptysis. Examination Category Sub-Category Detail Notes Category Not es Exam GENERAL APPEARANCE: Appears stated age Skin Normal Mouth [place] and moist. No c andidiasis Trachea Midline Chest Normal Respiratory Normal Movements, Ef fort Normal Auscultation Breath sounds dimini shed. Mild moist rhonchi in the bases, mild expiratory wheezes Cardiac Regular rate and rhy thm Gastrointestinal Normal Vascular No edema Musculoskeletal Normal posture Neurological Focal, intact Psychiatric Alert and oriented x 3 Mentation/Cognition Calm Oropharynx Mallampati Class II
--- OUTSIDE RECORDS SUMMARY | 2024-02-14 06:30 | XMS_ITS ---
Author Organization [facility] in [place] Address [address] [place] [address] Care Team Providers Care School Curriculum Developer Name Role Phone Uche Rod Primary Care Provider Manny Vaca Unavailable [phone] Allergies Allergen (clinical drug ingredient) Drug/Non Drug Allergy documented on EMR Reaction Allergy Type Onset Date Status Substance with sulfonamide structure and antibacterial mechanism of action (substance) Sulfa Antibiotics hives Drug Allergy Active REASON FOR VISIT 3 Mos F/U COPD Medications Medication SIG (Take, Route, Frequency, Duration) Notes Start Date End Date Status Lisinopril 10 MG TAKE 1 TABLET BY EVERY DAY for 90 Active Budesonide-Formoterol Fumarate 160-4.5 MCG/ACT 2 puffs Inhalation BID for 90 days Rinse after use (Dispense #3) Active Albuterol Sulfate HFA 108 (90 Base) MCG/ACT 2 puffs as needed for SOB Inhalation Q4H for 30 days Activ e Social History Tobacco Use: Social History Observation Description Date Details (start date - stop date) Current Smoker NA - NA Tobacco Control (Standard) Question Answer Notes Tobacco use: Current every day smoker Additional Findings: Tobacco user Very heavy cig arette smoker (40+ cigs/day) Problems Problem Type SNOMED Code ICD Code Onset Dates Problem Status W/U Status Risk Notes Problem Ssjmg-3-pdnaoi ypsin phenotype PiMS (finding) (072801355) Alpha 1-antitrypsin PiMS phenotype (Z14.8) Active confirmed Vital Signs Temperature 95.9 degrees Fahrenheit 02/14/20 24 Blood pressure systolic 163 mm Hg 02/14/20 24 Blood pressure diastolic 83 mm Hg 024 Heart Rate 71 /min 02/14/2024 Respiratory Rate 18 /min 02/14/2024 Height 63 in 02/14/2024 Weight 126.2 lbs 02/14/2024 BMI 22.35 kg/m2 02/14/2024 Oximetry 97 % 02/14/2024 Encounters Encounter Location Date Provider Diagnosis Pulmonary Medicine [address] [address] 02/14/2024 Manny Vaca Multiple pulmonary nodules R91.8 ; Centrilobular emphysema J43.2 ; Respiratory bronchiolitis interstitial lung disease J84.115 ; Cigarette nicotine dependence with nicotine-induced disorder F17.219 ; Alpha 1-antitrypsin PiMS phenotype Z14.8 and prison (current) use of inhaled steroids Z79.51 Assessments Encounter Date Diagnosis (ICD Code) Assessment Notes Treatment Notes Treatment Clinical Notes Section Notes 02/14/2024 Multiple pulmonary nodules (ICD-10 - R91.8) Essentially unchanged 2.8cm DEBBY nodule/irregularit y on chest CT 11/14/2023 compared to 04/29/2023. Bronchoscopy with transbronchial biopsies performed on 05/10/2023. Chest CT due November 2024. 02/14/2024 Centrilobular emphysema (ICD-10 - J43.2) Prior treatment: Symbicort 160 > Breo 100 Now that she is using Symbicort on a scheduled basis, she notices significant improvement in her symptom control. Likewise, her rhonchi and wheezes have resolved on physical examination. She is not requiring albuterol at this point. She would rate her breathing 8.5/10. She does not feel that she requires any additional therapy (e.g. LAMA). Will continue with Symbicort for now. Will follow-up in 9 months, which is when her 12 month F/U chest CT is due. 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 Treatment is smoking cessation -once again, smoking cessation was strongly advised today. 02/14/2024 Cigarette nicotine dependence with nicotine-induced disorder (ICD-10 - F17.219) Discussed smoking cessation yet again. Patient voiced understanding that she needs to quit given her underlying COPD and abnormal chest imaging. However, she voiced that she has no intentions to quit at this time. Discussed with her if she is ever ready, she can contact the office for assistance. 02/14/2024 Alpha 1-antitrypsin PiMS phenotype (ICD-10 - Z14.8) Patient has normal variant alpha1-antitrypsin phenotype MS. This in itself will not cause or typically contribute to emphysema. 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 Plan Of Treatment Medication Medication Name Sig Start Date Stop Date Notes Budesonide-Formoterol Fumarate 160-4.5 MCG/ACT 2 puffs Inhalation BID for 90 days Albuterol Sulfate HFA 108 (9 0 Base) MCG/ACT 2 puffs as needed for SOB Inhalation Q4H for 30 days Treatment Notes Assessment Notes Multiple pulmonary nodules Essentially unchanged 2.8cm DEBBY nodule/irregularity on chest CT 11/14/2023 compared to 04/29/2023. Bronchoscopy with transbronchial biopsies performed on 05/10/2023. Chest CT due November 2024. Centrilobular emphysema Prior treatment: Symbicort 160 > Breo 100 Now that she is using Symbicort on a scheduled basis, she notices significant improvement in her symptom control. Likewise, her rhonchi and wheezes have resolved on physical examination. She is not requiring albuterol at this point. She would rate her breathing 8.5/10. She does not feel that she requires any additional therapy (e.g. LAMA). Will continue with Symbicort for now. Will follow-up in 9 months, which is when her 12 month F/U chest CT is due. 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 Treatment is smoking cessation -once again, smoking cessation was strongly advised today. Cigarette nicotine dependenc e with nicotine-induced disorder Discussed smoking cessation yet again. Patient voiced understanding that she needs to quit given her underlying COPD and abnormal chest imaging. However, she voiced that she has no intentions to quit at this time. Discussed with her if she is ever ready, she can contact the office for assistance. Alpha 1-antitrypsin PiMS phenotype Patient has normal variant alpha1-antitrypsin phenotype MS. This in itself will not cause or typically contribute to emphysema. prison (current) use of i nhaled steroids Patient was counseled to rinse & gargle with water after inhaled corticosteroid use. Next Appt Details Follow Up: 9 months (mid-Sep 2024), Reason: COPD, abnormal chest CT Provider Name:Mannyrupesh May, 11/21/2024 09:00:00 AM, [address] [place], [address], Procedure Notes * Category Sub-Category Detail Notes Alpha-1 Antitrypsin Screening Date: 08/16/2023 Genotype: MS Progress Notes * Isabelle BABCOCK LDOB:[birth year] (69 yo F)Acc No.[id number]:02/14/2024 Follow Up Patient: Isabelle BLANTON Provider: Jennifer Vaca DO :1955 A ge:69 Y S ex:Female Date:02/14/2024 Address:[address] [place], [place] [id number] Pcp:Uche Rod Check In:10:26 AM ESTCheck O ut:11:11 AM EST Subjective: * Chief Complaints: * 3 Mos F/U COPD * HPI: G eneral: Since patient was last seen, she has been using Symbicort on a regular basis.She states other than the taste, she has been tolerating it very well. She feels that has made a marked improvement in her respiratory symptoms. She would rate her breathing and 8.5/10 and does not feel that she requires any additional therapy. Discussed her chest CT from 11/14/2023 appears stable as far back as 04/21/2022. No significant change in the abnormal groundglass opacity or pulmonary nodule. She continues to smoke and expresses no desire to stop. She voiced understanding on the adverse effects of tobacco abuse. MA Intake Comments:. Patient presents for a follow up for COPD. Patient admits to smoking daily and has no desire to stop at this time. Patient is using Symbicort daily with great benefit. Patient reports not having to use her rescue inhaler. Patient reports heart palpitations the last time she used her rescue inhaler. Patient states her breathing has improved since using Symbicort. Patient had a CT Chest performed on 11/14/2023. * ROS: G eneral/Constitutional: Fever or sweats d enies. C hange of appetite d enies. C hills d enies. W eight Change d enies. H EENT: Dry mouth d enies. S ore throat d enies. O ral Ulcers d enies. P ost Nasal Drip D enies. C ongestion D enies. H oarseness�Denies. C ardiovascular: Tachycardia d enies. C hest pain d enies. P alpitations d enies. R espiratory: Chest tightness d enies. P leurisy D enies. D yspnea w ith exertion - Improved with Symbicort. C ough d ecreased with Symbicort. H emoptysis d enies. W heezing d enies. G astrointestinal: Acid Reflux/GERD/Heartburn d enies. D ysphagia d enies. M usculoskeletal: Arthralgias/joint pain D enies. S kin: Easy bruising d enies. R loida d enies. � N eurologic: Seizures d enies. T remor d enies. H ematology: Abnormal Bleeding d enies. P sychiatric: Anxiety d enies. * Active Problem List Z14.8 Alpha 1-antitrypsin PiMS phenotype Modified On:02/14/2024/U Status:confirmed F17.219 Cigarette nicotine d ependence with nicotine-induced disorder Modified On:05/17/2023/U Status:confirmed J84.115 Respiratory bronchio litis interstitial lung disease Modified On:05/17/2023/U Status:confirmed J43.2 Centrilobular emphys odalys Modified On:05/31/2023W/U Status:confirmed R91.8 Multiple pulmonary n odules Modified On:05/17/2023/U Status:confirmed R91.1 Lung nodule Modified On:05/02/2023/U Status:confirmed R91.8 Lung mass Modified On:05/02/2023U Status:confirmed M75.02 Frozen shoulder, lef t Modified On:04/21/2023U Status:confirmed M75.40 Shoulder impingement Modified On:04/21/2023U Status:confirmed I10 Hypertension Modified On:04/21/2023U Status:confirmed Z01.818 Pre-op exam Modified On:05/17/2023U Status:confirmed Z79.51 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 Modified On:05/17/2023U Status:confirmed * Medical History: * Surgical History: c esarean section Bronchoscopy 05/09/2022 * Hospitalization/Major Diagno stic Procedure: Satinder entk Past Hospitalization * Family History: F ather: [...] umber of Packs per Day: 1 .5 M iscellaneous: O ccupation O ccupation: R [...] BY MOUTH 4 TIMES A DAY NEEDED Budesonide-Formoterol Fumarate 160-4.5 MCG/ACT Aerosol Inhalation Lisinopril 10 MG Tablet TAKE 1 TABLET BY MOUTH EVERY DAY Medication List reviewed and reconciled with the patientTaking Albuterol Sulfate HFA 108 (90 Base) MCG/ACT Aerosol Solution INHALE 2 PUFFS BY MOUTH 4 TIMES A DAY NEEDED Taking Budesonide-Formoterol Fumarate 160-4.5 MCG/ACT Aerosol Inhalation Taking Lisinopril 10 MG Tablet TAKE 1 TABLET BY MOUTH EVERY DAY Medication List reviewed and reconciled with the patient * Allergies: S ulfa Antibiotics: hives - Allergyno[Allergies Verified] Objective: * Vitals: W t:126.2lbs, Ht: 63 in, BP:sittin/83mm Hg, Temp:Forehead:95.9F, HR:71/min, RR:18/min, BMI:22.35Index, Oxygen sat %:Room Air:97%, Ht-cm: 160.02 cm, Wt-k.24 kg. * Examination: E xam: GENERAL APPEARANCE: A ppears stated age. Skin N ormal. Mouth P ink and moist. No candidiasis. Oropharynx M allampati Class II. Trachea M idline. Chest N ormal. Respiratory Normal M ovements, E ffort N ormal. Auscultation D iminished breath sounds, but crackles/rhonchi and wheezes have resolved. Cardiac R egular rate and rhythm. Gastrointestinal N ormal. Vascular N o edema. Musculoskeletal N ormal posture. Neurological F ocal, intact. Psychiatric A lert and oriented x3. Mentation/Cognition H appy. Assessment: * Assessment: 1. C entrilobular emphysema - J43.2 (Primary) 2 . M ultiple pulmonary nodules - R91.8 3 . R espiratory bronchiolitis interstitial lung disease - J84.115� 4. C igarette nicotine dependence with nicotine-induced disorder - F17.219 & #160; 5 . A lpha 1-antitrypsin PiMS phenotype - Z14.8 6 . L yinka term (current) use of inhaled steroids - Z79.51 Plan: * Treatment: 2. M ultiple pulmonary nodules Notes: Essentially unchanged 2.8cm DEBBY nodule/irregularity on chest CT 11/14/2023 compared to 04/29/2023. Bronchoscopy with transbronchial biopsies performed on 05/10/2023. Chest CT due November 2024. � 3. 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 Treatment is smoking cessation -once again, smoking cessation was strongly advised today. 4. C igarette nicotine dependence with nicotine-induced disorder Notes: Discussed smoking cessation yet again. Patient voiced understanding that she needs to quit given her underlying COPD and abnormal chest imaging. However, she voiced that she has no intentions to quit at this time. Discussed with her if she is ever ready, she can contact the office for assistance.� 5. A lpha 1-antitrypsin PiMS phenotype Notes: Patient has normal variant alpha1-antitrypsin phenotype MS. This in itself will not cause or typically contribute to emphysema. 6. L yinka term (current) use of inhaled [...] of tobacco use and urged to quit. 1 04/16/2023 Cessation counseling provided 1 04/16/2023 F IVANA EXCLUSION Reason: P atient Reason refused/declined Type of Patient Reason: D rug declined by patient * Follow Up: 9 months (mid-November 2024) (Reason: COPD, abnormal chest CT) * * Sign off status: Completed Visit Status: C HK (Check Out) true * Provider: Jennifer Vaca, DO Date: 1 04/16/2023 Generated for Ngoc wiley/Jose/Lori on: 0 09/06/2024 10:05 AM EDT History and Physical Notes * HPI (History of Present Illness) Category Sub-Category Detail Notes Category Not es General Patient present s for a follow up for COPD. Patient admits to smoking daily and has no desire to stop at this time. Patient is using Symbicort daily with great benefit. Patient reports not having to use her rescue inhaler. Patient reports heart palpitations the last time she used her rescue inhaler. Patient states her breathing has improved since using Symbicort. Patient had a CT Chest performed on 11/14/2023. Examination Category Sub-Category Detail Notes Category Not es Exam GENERAL APPEARANCE: Appears stated age Skin Normal Mouth [place] and moist. No c andidiasis Trachea Midline Chest Normal Respiratory Normal Movements, Ef fort Normal Auscultation Diminished breath so unds, but crackles/rhonchi and wheezes have resolved Cardiac Regular rate and rhy thm Gastrointestinal Normal Vascular No edema Musculoskeletal Normal posture Neurological Focal, intact Psychiatric Alert and oriented x 3 Mentation/Cognition Happy Oropharynx Mallampati Class II
--- OUTSIDE RECORDS SUMMARY | 2024-09-05 04:30 | XMS_ITS ---
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 ; Hypertension I10 ; Lung nodule R91.1 ; Cigarette nicotine dependence with nicotine-induced disorder F17.219 ; Lung mass R91.8 ; Multiple pulmonary nodules R91.8 and Alpha 1-antitrypsin PiMS phenotype Z14.8 Assessments Encounter Date Diagnosis (ICD Code) Assessment Notes Treatment Notes Treatment Clinical Notes Section Notes 09/05/2024 Respiratory bronchiolitis interstitial lung disease (ICD-10 - J84.115) Breathgtng stable jusgt worsde wtgh the heat, cont to use inhalers routine and prn - no increase in PRAKASH - no cp, reveiwed how and when to use inhalers, need for wellness followup in next couple weeks 09/05/2024 Centrilobular emphysema (ICD-10 - J43.2) see treatment plan and action plan as above 09/05/2024 retirement (current) use of inhaled steroids (ICD-10 - Z79.51) see above 09/05/2024 Hypertension (ICD-10 - I10) not checking - discussed caffeine and low salt diet 09/05/2024 Lung nodule (ICD-10 - R91.1) will need folow up ct 09/05/2024 Cigarette nicotine dependence with nicotine-induced disorder (ICD-10 - F17.219) encoutrage to quit smoking - not likely 09/05/2024 Lung mass (ICD-10 - R91.8) follow up ct 09/05/2024 Multiple pulmonary nodules (ICD-10 - R91.8) see above 09/05/2024 Alpha 1-antitrypsin PiMS phenotype (ICD-10 - Z14.8) see above Plan Of Treatment Treatment Notes Assessment Notes Respiratory bronchiolitis in terstitial lung disease Breathgtng stable jusgt worsde wtgh the heat, cont to use inhalers routine and prn - no increase in PRAKASH - no cp, reveiwed how and when to use inhalers, need for wellness followup in next couple weeks Centrilobular emphysema see treatment pl an and action plan as above 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 see above Hypertension not checking - discu ssed caffeine and low salt diet Lung nodule will need folow up c t Cigarette nicotine dependenc e with nicotine-induced disorder encoutrage to quit smoking - not likely Lung mass follow up ct Multiple pulmonary nodules see above Alpha 1-antitrypsin PiMS phenotype see chrissy molina Pending Test Test Name Order Date HEMOGLOBIN A1C (GLYCO) 09/05/2024 IRON, TOTAL 09/05/2024 LIPID PANEL (CHOL/TRIG/HDL/LDL) 09/06/19 25 VITAMIN D, 25 LEVEL (TOTAL) 09/05/2024 STOOL OCCULT BLOOD 09/05/2024 THYROID PANEL (T4/TSH/FREE T3) 5 MM screening mammo BI 09/05/2024 CMP (COMP MET GONZALEZ) w/eGFR CKD-EPI 2024 CBC WITH DIFF 09/05/2024 Next Appt Details Provider Name:Manny Vaca, 11/21/2024 09:00:00 AM, [address] [place], [address], Progress Notes * Isabelle BABCOCK LDOB:[birth year] (69 yo F)Acc No.[id number]:09/05/2024 UNLOCKED PROGRESS NOTE TeleMed via Doxy Patient: Isabelle BLANTON Provider: Satinder Rod ([facility])MD :1955 A ge:69 Y S ex:Female Date:09/05/2024 Address:[address] [place], [place] [id number] Check In:08:31 AM ESTCheck O ut:08:55 AM EST Subjective: * Chief Complaints: * 1 . J432- Centrilobular emphysema. 2. Patient does need yearly appointment as well. * HPI: G eneral: The patient verbally consented to a TeleHealth encounter and the potential risks involved with a TeleHealth visit (clinical aspects, security considerations, and confidentiality of information) were discussed with the patient. The patient encounter was conducted using a synchronous audio-visual interactive audio telecommunications system called: telephone. Patient is attending the TeleHealth encounter from home. Patient was the only one present in the room. The provider is attending the TeleHealth encounter from their office. Care provided by Telemedicine. Total Time spent during the encounter: 8 min COPD - using inhalers more frequently - humidity make worse - cough - prod but just clear white no cp - no prakash - no orthopnea. * Medical History: Objective: * Vitals: Assessment: * Assessment: 1. 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 H ypertension - I10 4 . L zamzam nodule - R91.1 5 . C igarette nicotine dependence with nicotine-induced disorder - F17.219 6 . L zamzam mass - R91.8 �7. M ultiple pulmonary nodules - R91.8 8 . A lpha 1-antitrypsin PiMS phenotype - Z14.8 9 . C entrilobular emphysema - J43.2 Plan: * Treatment: 2. L yinka term (current) use of inhaled steroids L AB: HEMOGLOBIN A1C (GLYCO) L AB: IRON, TOTAL L AB: LIPID PANEL (CHOL/TRIG/HDL/LDL) L AB: VITAMIN D, 25 LEVEL (TOTAL) L AB: STOOL OCCULT BLOOD L AB: THYROID PANEL (T4/TSH/FREE T3) L AB: CMP (COMP MET GONZALEZ) w/eGFR CKD-EPI L AB: CBC WITH DIFF Notes: see above 3. H ypertension L AB: HEMOGLOBIN A1C (GLYCO) L AB: IRON, TOTAL L AB: LIPID PANEL (CHOL/TRIG/HDL/LDL) L AB: VITAMIN D, 25 LEVEL (TOTAL) L AB: STOOL OCCULT BLOOD L AB: THYROID PANEL (T4/TSH/FREE T3) L AB: CMP (COMP MET GONZALEZ) w/eGFR CKD-EPI L AB: CBC WITH DIFF Notes: not checking - discussed caffeine and low salt diet 4. L zamzam nodule L AB: HEMOGLOBIN A1C (GLYCO) L AB: IRON, TOTAL L AB: LIPID PANEL (CHOL/TRIG/HDL/LDL) L AB: VITAMIN D, 25 LEVEL (TOTAL) L AB: STOOL OCCULT BLOOD L AB: THYROID PANEL (T4/TSH/FREE T3) L AB: CMP (COMP MET GONZALEZ) w/eGFR CKD-EPI L AB: CBC WITH DIFF Notes: will need folow up ct 5. C igarette nicotine dependence with nicotine-induced disorder L AB: HEMOGLOBIN A1C (GLYCO) L AB: IRON, TOTAL L AB: LIPID PANEL (CHOL/TRIG/HDL/LDL) L AB: VITAMIN D, 25 LEVEL (TOTAL) L AB: STOOL OCCULT BLOOD L AB: THYROID PANEL (T4/TSH/FREE T3) L AB: CMP (COMP MET GONZALEZ) w/eGFR CKD-EPI L AB: CBC WITH DIFF Notes: encoutrage to quit smoking - not likely 6. L zamzam mass L AB: HEMOGLOBIN A1C (GLYCO) L AB: IRON, TOTAL L AB: LIPID PANEL (CHOL/TRIG/HDL/LDL) L AB: VITAMIN D, 25 LEVEL (TOTAL) L AB: STOOL OCCULT BLOOD L AB: THYROID PANEL (T4/TSH/FREE T3) L AB: CMP (COMP MET GONZALEZ) w/eGFR CKD-EPI L AB: CBC WITH DIFF Notes: follow up ct 7. M ultiple pulmonary nodules L AB: HEMOGLOBIN A1C (GLYCO) L AB: IRON, TOTAL L AB: LIPID PANEL (CHOL/TRIG/HDL/LDL) L AB: VITAMIN D, 25 LEVEL (TOTAL) L AB: STOOL OCCULT BLOOD L AB: THYROID PANEL (T4/TSH/FREE T3) L AB: CMP (COMP MET GONZALEZ) w/eGFR CKD-EPI L AB: CBC WITH DIFF Notes: see above 8. A lpha 1-antitrypsin PiMS phenotype L AB: HEMOGLOBIN A1C (GLYCO) L AB: IRON, TOTAL L AB: LIPID PANEL (CHOL/TRIG/HDL/LDL) L AB: VITAMIN D, 25 LEVEL (TOTAL) L AB: STOOL OCCULT BLOOD L AB: THYROID PANEL (T4/TSH/FREE T3) L AB: CMP (COMP MET GONZALEZ) w/eGFR CKD-EPI L AB: CBC WITH DIFF Notes: see above 9. C entrilobular emphysema L AB: HEMOGLOBIN A1C (GLYCO) L AB: IRON, TOTAL L AB: LIPID PANEL (CHOL/TRIG/HDL/LDL) L AB: VITAMIN D, 25 LEVEL (TOTAL) L AB: STOOL OCCULT BLOOD L AB: THYROID PANEL (T4/TSH/FREE T3) L AB: CMP (COMP MET GONZALEZ) w/eGFR CKD-EPI L AB: CBC WITH DIFF Notes: see treatment plan and action plan as above * * Electronic signature of Uche Rod MD, [id number] on 09/06/2024 at 10:05 AM EDT Sign off status: Pending Visit Status: Rj HK (Check Out) * Provider: Satinder Rod ([facility]C)MD Date: 09/05/2024 Generated for Ngoc wiley/Jose/Toniaitting on: 09/06/2024 10:05 AM EDT
--- OUTSIDE RECORDS SUMMARY | 2024-09-06 10:05 | XMS_ITS | Clinical Summary ---
Author Organization [facility] Address [address] [place] [address] Care Team Providers Care Triage Register Nurse Name Role Phone Unavailable Primary Care Provider Unavailabl e Social History Tobacco Use Types Packs/Day Years Used Date Smoking Tobacco: Never Assessed Comments Unknown Sex and Gender Information Value Date Recorded Sex Assigned at Not on file Legal Sex Female 12:12 AM EDT Gender Identity Not on file Sexual Orientation Not on file Last Filed Vital Signs Vital Sign Reading Time Taken Comments Blood Pressure 146/90 08/16/2018 11:17 AM EDT Pulse 78 04/24/2018 2:11 PM EST Temperature - - Respiratory Rate - - Oxygen Saturation 98% 08/16/2018 11:17 AM EDT Inhaled Oxygen Concentration - - Weight 63 kg (139 lb) 08/16/2018 11:14 AM EDT Height 162.6 cm (5' 4 ) 08/16/2018 11:14 AM EDT Body Mass Index 23.86 08/16/2018 11:14 AM EDT Plan of Treatment Not on file
--- OUTSIDE RECORDS SUMMARY | 2024-09-06 10:05 | XMS_ITS | Patient Health Record ---
Author Organization [facility] in [place] Address [address] [place] [address] Care Team Providers Care Shell Worker Name Role Phone Uche Rod Primary Care Provider Manny Vaca Unavailable [phone] Allergies Allergen (clinical drug ingredient) Drug/Non Drug Allergy documented on EMR Reaction Allergy Type Onset Date Status Substance with sulfonamide structure and antibacterial mechanism of action (substance) Sulfa Antibiotics hives Drug Allergy Active Results Component Value Reference Range Notes CT Chest w/o contrast Reviewed date:11/15/2023 07:23:46 AM Interpretation: Performing Lab: Notes/Report: Reason For Referral No Information Medications Medication SIG (Take, Route, Frequency, Duration) Notes Start Date End Date Status Budesonide-Formoterol Fumarate 160-4.5 MCG/ACT 2 puffs Inhalation BID for 90 days Rinse after use (Dispense #3) Active Albuterol Sulfate HFA 108 (90 Base) MCG/ACT 2 puffs as needed for SOB Inhalation Q4H for 30 days Activ e Lisinopril 10 MG TAKE 1 TABLET BY BRAD TH EVERY DAY for 90 days Active Social History Tobacco Use: Social History Observation Description Date Details (start date - stop date) Current Smoker NA - NA Tobacco Control (Standard) Question Answer Notes Tobacco use: Current every day smoker Additional Findings: Tobacco user Very heavy cig arette smoker (40+ cigs/day) Problems Problem Type SNOMED Code ICD Code Onset Dates Problem Status W/U Status Risk Notes Problem Centrilobular emphysema (88457538) Centrilobular emphysema (J43.2) Active confirmed Problem 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 Problem 103519142 skilled nursing (current) use of inhaled steroids (Z79.51) Active confirmed Problem Hypertension (84353816) Hypertension (I10) Active confirmed Problem Solitary nodule of lung (665842408) Lung nodule (R91.1) Active confirmed Problem 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) Cigarette nicotine dependence with nicotine-induced disorder (F17.219) Active confirmed Problem Pre-surgery evaluation (580765429) Pre-op exam (Z01.818) Active confirmed Problem Impingement syndrome of shoulder region (295029424) Shoulder impingement (M75.40) Active confirmed Problem Lung mass (499162415) Lung mass (R91.8) Active confirmed Problem 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, 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) Active confirmed Problem Multiple pulmonary nodules (320123043) Multiple pulmonary nodules (R91.8) Active confirmed Problem Cbtiv-7-angiwzntq in phenotype PiMS (finding) (364560404) Alpha 1-antitrypsin PiMS phenotype (Z14.8) Active confirmed Vital Signs Heart Rate 71 /min 02/14/2024 Temperature 95.9 degrees Fahrenheit 02/14/2024 Respiratory Rate 18 /min 02/14/2024 Blood pressure diastolic 83 mm Hg 02/14/2024 Oximetry 97 % 02/14/2024 Height 63 in 02/14/2024 Blood pressure systolic 163 mm Hg 02/14/2024 Weight 126.2 lbs 02/14/2024 BMI 22.35 kg/m2 02/14/2024 Encounters Encounter Location Date Provider Diagnosis [facility] [address] [place] [address] 09/13/2023 Mannyrupesh Vaca Alpha 1-antitrypsin PiMS phenotype Z14.8 [facility] [address] [place] [address] 09/05/2024 Uche Hoy Respiratory bronchiolitis interstitial lung disease J84.115 ; Centrilobular emphysema J43.2 ; skilled nursing (current) use of inhaled steroids Z79.51 ; Hypertension I10 ; Lung nodule R91.1 ; Cigarette nicotine dependence with nicotine-induced disorder F17.219 ; Lung mass R91.8 ; Multiple pulmonary nodules R91.8 and Alpha 1-antitrypsin PiMS phenotype Z14.8 [facility] [address] [place] [address] 11/15/2023 Manny Vaca Multiple pulmonary nodules R91.8 ; Centrilobular emphysema J43.2 ; Respiratory bronchiolitis interstitial lung disease J84.115 ; Cigarette nicotine dependence with nicotine-induced disorder F17.219 and skilled nursing (current) use of inhaled steroids Z79.51 [facility] [address] [place] [address] 02/14/2024 Manny Vaca Multiple pulmonary nodules R91.8 ; Centrilobular emphysema J43.2 ; Respiratory bronchiolitis interstitial lung disease J84.115 ; Cigarette nicotine dependence with nicotine-induced disorder F17.219 ; Alpha 1-antitrypsin PiMS phenotype Z14.8 and 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 11/15/2023 Centrilobular emphysema (ICD-10 - J43.2) Prior [...] not cause or typically contribute to emphysema. 11/15/2023 Cigarette nicotine dependence with nicotine-induced disorder (ICD-10 - F17.219) Yet again I discussed smoking cessation with the patient. She declined any intervention at this time. She stated if you just see my cupboard with all the stopping smoking medications in there... 11/15/2023 skilled nursing (current) use of inhaled steroids (ICD-10 - Z79.51) Patient was counseled to rinse & gargle with water after inhaled corticosteroid use. 02/14/2024 skilled nursing (current) use of inhaled steroids (ICD-10 - Z79.51) Patient was counseled to rinse & gargle with water after inhaled corticosteroid use. Plan Of Treatment Pending Test Test Name Order Date CMP (COMPLETE METABOLIC PANEL) 4 HEMOGLOBIN A1C (GLYCO) 04/21/2023 HEMOGLOBIN A1C (GLYCO) 09/05/2024 IRON, TOTAL 09/05/2024 LIPID PANEL (CHOL/TRIG/HDL/LDL) 09/06/19 25 LIPID PANEL (CHOL/TRIG/HDL/LDL) 04/21/19 24 CBC WITH DIFF 04/21/2023 VITAMIN D, 25 LEVEL (TOTAL) 09/05/2024 CT Chest w/o contrast 10/06/2022 STOOL OCCULT BLOOD 09/05/2024 STOOL OCCULT BLOOD 04/21/2023 MRI Shoulder Arthrogram w/ Contrast Left 04/21/2023 CT CHEST WO CON 04/21/2023 XR SHOULDER LT 2V or > 04/21/2023 THYROID PANEL (T4/TSH/FREE T3) 4 THYROID PANEL (T4/TSH/FREE T3) 5 MM screening mammo BI 09/05/2024 CMP (COMP MET GONZALEZ) w/eGFR CKD-EPI 2024 CBC WITH DIFF 09/05/2024 Next Appt Details Provider Name:Manny Vaca, 11/21/2024 09:00:00 AM, [address] [place], [address], Insurance Providers Payer Name Payer Address Payer Phone Subscriber Number Group Number Insured Name Patient Relationship to Insured Coverage Start Date Coverage End Date [employer]AN [address] [place] [phone] [id number] [id number] Isabelle Castillo Self - patient is the insured Medical (General) History Medical History History ICD Code Lumbago with sciatica, right side M54.41 HTN (hypertension) I10 Centrilobular emphysema J43.2 Multiple pulmonary nodules R91.8 Cigarette nicotine dependence with nicot ine-induced disorder F17.219 Respiratory bronchiolitis interstitial l zamzam disease J84.115 Alpha 1-antitrypsin PiMS phenotype Z14.8 Surgical History Surgery Date(Month/Year) section Bronchoscopy 05/09/2022
--- OUTSIDE RECORDS SUMMARY | 2024-09-06 10:23 | XMS_ITS | CCD ---
Author Organization [facility] Care Team Providers Care Instrumentation Technician Name Role Phone PHYSICIAN, DEFAULT Admitting Unavailable [...] Unavailable POLICARO, GLORIA Consulting Unavailable Samsa - TBH, Manny Attending Unavailable Samsa - TB[facility], Manny Admitting Unavailable Allergies Allergy Classification Reported Allergen(s) Allergy Type Date of Onset Reaction(s) Facility (1 source) Sulfonamides (Antibiotic) Drug allergy (disorder) 10-04-2012 [facility] Repository Problems Problem Classification Problem Date [...] Test Name Value Interpretation Reference Range Facility [facility] 05-10-2023 L Specimen: Received: 05/11/23 Status: ANTOINE Abad Num: [id number] Spec Type: Cytology Subm Dr: Manny Vaca DO Tissues: A BRONWASH (LT UPPER LOBE) Procedures: HE/2, Gross/Micro L4, Cyto Prepstain, PAPSTN Age/ Patient Sex Location Account Attending Physician Isabelle Babcock 68/F [place] [id number] Manny Vaca DO SPEC NUM: [id number] RECD: 05/11/23 STATUS: ANTOINE ABAD NUM: [id number] NILESH: 05/10/23- DR: Manny Vaca DO ENTERED: 05/11/[address] [facility] DR: Dewayne,Rafa SPEC TYPE: Cytology DEPT: TOBY [facility] ENTERED BY: [id number] RECV BY: [id number] ORDERED: HE/2, Gross/Micro L4, Cyto Prepstain, PAPSTN [...] block section also showing similar findings CPT: 49874, 50696 Gross Description Received fresh labeled with the patient's name, date of and left upper lobe lavage per requisition is 5 ml colorless clear unfixed fluid. 1 Thin Prep slides are prepared. 1 cell blocks are prepared. (CC/nh) Specimen: [id number] Received: 05/11/23 Status: ANTOINE Abad Num: [id number] Spec Type: Cytology Subm Dr: Manny Vaca DO Tissues: A BRONWANICHOLAS (LT UPPER LOBE) Procedures: HE/2, Gross/Micro L4, Cyto Prepstain, PAPSTN Patient: Isabelle Babcock [id number] (Continued) Signed (signature on file) Tomas Alston MD 05/12/23 7506 [facility] L Specimen: [id number] Received: 05/10/23 Status: ANTOINE Abad Num: [id number] Spec Type: Surgical Subm Dr: Manny Vaca DO Tissues: A Lung - Transbroncial Biopsy (LT UPPER LOBE) Procedures: HE/2, Gross/Micro L4, RECUT/2 Age/ Patient Sex Location Account Attending Physician Isabelle Babcock 68/F [place] [id number] Manny Vaca DO SPEC NUM: [id number] RECD: 05/10/23 STATUS: ANTOINE ABAD NUM: [id number] NILESH: 05/10/[address]: Manny Vaca DO [...] submitted in one cassette labeled A1. Specimen: [id number] Received: 05/10/23 Status: ANTOINE Abad Num: [id number] Spec Type: Surgical Subm Dr: Manny Vaca DO Tissues: A Lung - Transbroncial Biopsy (LT UPPER LOBE) Procedures: HE/2, Gross/Micro L4, RECUT/2 Patient: Isabelle Babcock [id number] (Continued) Specimen: [id number] Received: 05/10/23 (Continued) Signed (signature on file) Tomas Alston MD 05/17/23 1504 Specimen: [id number] Received: 05/10/23 Status: ANTOINE Abad Num: [id number] Spec Type: Surgical Subm Dr: Manny Vaca DO Tissues: A Lung - Transbroncial Biopsy (LT UPPER LOBE) Procedures: HE/2, Gross/Micro L4, RECUT/2 Patient: Isabelle Babcock [id number] (Continued) Specimen: [id number] Received: 05/10/23 (Continued) CPT Codes 96750 Specimen: [id number] Received: 05/10/23 Status: ANTOINE Abad Num: [id number] Spec Type: Surgical Subm Dr: Manny Vaca DO Tissues: A Lung - Transbroncial Biopsy (LT UPPER LOBE) Procedures: HE/2, Gross/Micro L4, RECUT/2 Patient: Isabelle Babcock [id number] (Continued) Signed (signature on file) Charles-Epifanio Alston MD 05/17/23 1504 [facility] FREE T3on 05-19-2022 FREE T3 2.61 pg/mlL Normal 2.18-3.[address] [facility] Comment on above: Performed By: #### T SH, T4, FT3 #### [facility] [address] [place] [address] Dr. Whitley Alston T4on 05-19-2022 T4 [Mass/Vol] 8.30 ug/dL Normal 4.80-13.90 [facility] Comment on above: Performed By: #### T SH, T4, FT3 #### [facility] [address] [address] [address] Whitley Alston TSHon 05-19-2022 TSH 3.401 uIU/mL Normal 0.358-3.740 [facility] Comment on above: Performed By: #### T SH, T4, FT3 #### [facility] [address] [place] [address] Dr[address] SKULL BASE [...] by: GLORIA PRO Date: 2022-04-24 17:[address] [facility] CBC AUTO DIFFon 04-21-2022 BASO # 0.0 103/ul Normal 0.0-0.[address] [facility] Comment on above: Performed By: #### C BC #### [facility] [address] [address] [address] Whitley Alston Basophils/100 WBC (Bld) 0.5 % Normal 0.2-2.[address] [facility] Comment on above: Performed By: #### C BC #### [facility] [address] [place] [address] Dr. Whitley Alston EO # 0.3 103/ul Normal 0.0-0.[address] [facility] Comment on above: Performed By: #### C BC #### [facility] [address] [place] [address] Dr. Whitley Alston Eosinophils/100 WBC (Bld) 5.6 % Normal 0.9-7.[address] [facility] Comment on above: Performed By: #### C BC #### [facility] [address] [place] [address] Dr. Whitley Alston Erythrocyte distribution width (RBC) [Ratio] 13.2 % Normal 11.0-15.[address] [facility] Comment on above: Performed By: #### C BC #### [facility] [address] [place] [address] Dr. Whitley Alston Hematocrit (Bld) [Volume fraction] 42.8 % Normal 36.0-48.[address] [facility] Comment on above: Performed By: #### C BC #### [facility] [address] [place] [address] Dr. Whitley Alston Hemoglobin (Bld) [Mass/Vol] 14.3 g/dL Normal 12.0-16.[address] [facility] Comment on above: Performed By: #### C BC #### [facility] [address] [place] [address] Dr. Whitley Alston IG # 0.02 10e3/ul Normal 0.00-0.[address] [facility] Comment on above: Performed By: #### C BC #### [facility] [address] [place] [address] Dr. Whitley Alston IG % 0.3 % Normal 0.0-0.[address] [facility] Comment on above: Performed By: #### C BC #### [facility] [address] [place] [address] Dr. Whitley Alston LYMPH # 1.8 103/ul Normal 1.2-3.8 [facility] Comment on above: Performed By: #### C BC #### [facility] [address] [place] [address] Dr. Whitley Alston Lymphocytes/100 WBC (Bld) 30.7 % Normal 20.5-60.[address] [facility] Comment on above: Performed By: #### C BC #### [facility] [address] [place] [address] Dr. Whitley Alston MANUAL DIFF REQ NO Normal [facility] Comment on above: Performed By: #### C BC #### [facility] [address] [place] [address] Dr. Whitley Alston MCH (RBC) [Entitic mass] 29.2 pg Normal 26.7-34.[address] [facility] Comment on above: Performed By: #### C BC #### [facility] [address] [place] [address] Dr. Whitley Alston MCHC (RBC) [Mass/Vol] 33.4 g/dL Normal 29.9-35.[address] [facility] Comment on above: Performed By: #### C BC #### [facility] [address] [place] [address] Dr. Whitley Alston MCV (RBC) [Entitic vol] 87.3 fL Normal 81.0-99.[address] [facility] Comment on above: Performed By: #### C BC #### [facility] [address] [place] [address] Dr. Whitley Alston MONO # 0.5 103/ul Normal 0.3-0.[address] [facility] Comment on above: Performed By: #### C BC #### [facility] [address] [place] [address] Dr. Whitley Altson Monocytes/100 WBC (Bld) 9.4 % Normal 1.7-12.0 [facility] Comment on above: Performed By: #### C BC #### [facility] [address] [place] [address] Dr. Whitley Alston NEUT # 3.1 103/ul Normal 1.4-6.5 [facility] Comment on above: Performed By: #### C BC #### [facility] [address] [place] [address] Dr. Whitley Alston Neutrophils/100 WBC (Bld) 53.5 % Normal 43.0-75.[address] [facility] Comment on above: Performed By: #### C BC #### [facility] [address] [place] [address] Dr. Whitley Alston Platelet mean volume (Bld) [Entitic vol] 10.5 fL Normal 9.5-13.[address] [facility] Comment on above: Performed By: #### C BC #### [facility] [address] [place] [address] Dr. Whitley Alston PLT 271 103/ul Normal 150-[address] [facility] Comment on above: Performed By: #### C BC #### [facility] [address] [place] [address] Dr. Whitley Alston RBC 4.90 106/ul Normal 4.20-5.40 [facility] Comment on above: Performed By: #### C BC #### [facility] [address] [place] [address] Dr. Whitley Alston WBC 5.7 103/ul Normal 4.0-11.0 [facility] Comment on above: Performed By: #### C BC #### [facility] [address] [place] [address] LUNG CANCER SCREENINGon [...] PELON DAVIS Date: 2022-04-21 11:38 Normal [facility] FREE THYROXINE INDEX T7on FTI 2.63 Normal 1.30-4.[address] [facility] Comment on above: Performed By: #### L IPID, TSH, T7, CMP #### [facility] [address] [place] [address] Dr. Whitley Alston T3U 37.0 % Normal 30.0-39.[address] [facility] Comment on above: Performed By: #### L IPID, TSH, T7, CMP #### [facility] [address] [address] [address] Whitley Alston T4 [Mass/Vol] 7.10 ug/dL Normal 4.80-13.90 [facility] Comment on above: Performed By: #### L IPID, TSH, T7, CMP #### [facility] [address] [place] [address] Dr. Whitley Alston GLYCOHEMOGLOBIN A1Con 2022 ADA RECOMMENDATION SEE BELOW Normal [facility] Comment on above: Result Comment: ADA RECOMMENDED LIMIT 4.0 - 6.0 ADA THERAPEUTIC TARGET < 7.0 ACTION SUGGESTED > 7.0 Performed By: #### A 1C #### [facility] [address] [place] [address] Dr. Whitley Alston Glucose [Mass/Vol] 105 mg/dL Normal [facility] Comment on above: Performed By: #### A 1C #### [facility] [address] [place] [address] Dr. Whitley Alston HbA1c (Bld) [Mass fraction] 5.3 % Normal 4.5-6.[address] [facility] Comment on above: Performed By: #### A 1C #### [facility] [address] [place], [place] [address] Dr. Whitley Alston IRONon 04-21-2022 Iron [Mass/Vol] 137.0 ug/dL Normal 50.0-170.0 [facility] Comment on above: Performed By: #### I KINSEY ####[facility] [address] [address]DrIsa Alston LIPID PROFILEon 04-21-2022 CHOL-HDL RATIO NORM SEE BELOW Normal [facility] Comment on above: Result Comment: 3.3 - 4.4 LOW RISK 4.4 - 7.1 AVERAGE RISK 7.1 - 11.0 MODERATE RISK >11.0 HIGH RISK Performed By: #### L IPID, TSH, T7, CMP ####[facility] [address] [address]Dr. Whitley Alston Cholesterol [Mass/Vol] 250 mg/dL Critically high <=200 [facility] Comment on above: Performed By: #### L IPID, TSH, T7, CMP ####[facility] [address] [address] Whitley Alston Cholesterol in HDL [Mass/Vol] 111 mg/dL Critically high 40-[address] [facility] Comment on above: Performed By: #### L IPID, TSH, T7, CMP ####[facility] [address] [address]Dr[address] Whitley Alston Cholesterol in LDL [Mass/Vol] 121.6 mg/dL Normal [facility] Comment on above: Performed By: #### L IPID, TSH, T7, CMP ####[facility] [address] [address] Whitley Alston Cholesterol.total/Ch olesterol in HDL [Mass ratio] 2.3 {ratio} Normal [facility] Comment on above: Performed By: #### L IPID, TSH, T7, CMP ####[facility] [address] [address]Dr. Whitley Alston HDL NORMAL > or = 60 mg/dl - LO W CARDIOVASCULAR RISK <40 mg/dl - HIGH CARDIOVASCULAR RISK Normal [facility] Comment on above: Performed By: #### L IPID, TSH, T7, CMP ####[facility] [address] [address]Dr. Whitley Alston LDL CALC NORMAL SEE BELOW Normal [facility] Comment on above: Result Comment: <100 mg/dl OPTIMAL 100 - 129 mg/dl NEAR OR ABOVE OPTIMAL 130 - 159 mg/dl BORDERLINE HIGH 160 - 189 mg/dl HIGH >190 mg/dl VERY HIGH Performed By: #### L IPID, TSH, T7, CMP ####[facility] [address] [address]Dr. Whitley Alston Triglyceride [Mass/Vol] 87 mg/dL Normal <=[address] [facility] Comment on above: Performed By: #### L IPID, TSH, T7, CMP ####[facility] [address] [address]Dr. Whitley Alston VLDL CALC 17.4 mg/dL Normal [facility] Comment on above: Performed By: #### L IPID, TSH, T7, CMP ####[facility] [address] [address]DrIsa Alston PROF 14(COMP METB)on 023 Albumin [Mass/Vol] 4.1 g/dL Normal 3.4-5.0 [facility] Comment on above: Performed By: #### L IPID, TSH, T7, CMP #### [facility] [address] [address] [address] Whitley Alston Albumin/Globulin [Mass ratio] 1.2 {ratio} Normal [facility] Comment on above: Performed By: #### L IPID, TSH, T7, CMP #### [facility] [address] [address] [address] Whitley Alston ALP [Catalytic activity/Vol] 81 U/L Normal 46-[address] [facility] Comment on above: Performed By: #### L IPID, TSH, T7, CMP #### [facility] [address] [place] [address] Dr. Whitley Alston ALT [Catalytic activity/Vol] 24 U/L Normal 14-[address] [facility] Comment on above: Performed By: #### L IPID, TSH, T7, CMP #### [facility] [address] [place] [address] Dr. Whitley Alston Anion gap [Moles/Vol] 11.0 mmol/L Normal [facility] Comment on above: Performed By: #### L IPID, TSH, T7, CMP #### [facility] [address] [place] [address] Dr. Whitley Alston AST [Catalytic activity/Vol] 18 U/L Normal 15-[address] [facility] Comment on above: Performed By: #### L IPID, TSH, T7, CMP #### [facility] [address] [place] [address] Dr. Whitley Alston Bilirubin [Mass/Vol] 0.7 mg/dL Normal 0.2-1.[address] [facility] Comment on above: Performed By: #### L IPID, TSH, T7, CMP #### [facility] [address] [place] [address] Dr. Whitley Alston Calcium [Mass/Vol] 9.7 mg/dL Normal 8.5-10.1 [facility] Comment on above: Performed By: #### L IPID, TSH, T7, CMP #### [facility] [address] [place] [address] Dr. Whitley Alston Chloride [Moles/Vol] 106 mmol/L Normal 98-[address] [facility] Comment on above: Performed By: #### L IPID, TSH, T7, CMP #### [facility] [address] [place] [address] Dr. Whitley Alston CO2 [Moles/Vol] 27.1 mmol/L Normal 21.0-32.0 [facility] Comment on above: Performed By: #### L IPID, TSH, T7, CMP #### [facility] [address] [place] [address] Dr. Whitley Alston Creatinine [Mass/Vol] 0.78 mg/dL Normal 0.55-1.[address] [facility] Comment on above: Performed By: #### L IPID, TSH, T7, CMP #### [facility] [address] [address] [address] Whitley Alston EGFR-AF TANZANIAN >60 Normal >=60 [facility] Comment on above: Performed By: #### L IPID, TSH, T7, CMP #### [facility] [address] [address] [address] Whitley Alston EGFR-NON AF TANZANIAN >60 Normal >=[address] [facility] Comment on above: Performed By: #### L IPID, TSH, T7, CMP #### [facility] [address] [place] [address] Dr. Whitley Alston Globulin (S) [Mass/Vol] 3.5 g/dL Normal [facility] Comment on above: Performed By: #### L IPID, TSH, T7, CMP #### [facility] [address] [place] [address] Dr. Whitley Alston Glucose [Mass/Vol] 107 mg/dL Critically high 74-106 [facility] Comment on above: Performed By: #### L IPID, TSH, T7, CMP #### [facility] [address] [place] [address] Dr. Whitley Alston Potassium [Moles/Vol] 4.1 mmol/L Normal 3.5-5.[address] [facility] Comment on above: Performed By: #### L IPID, TSH, T7, CMP #### [facility] [address] [place] [address] Dr. Whitley Alston Protein [Mass/Vol] 7.6 g/dL Normal 6.4-8.[address] [facility] Comment on above: Performed By: #### L IPID, TSH, T7, CMP #### [facility] [address] [place] [address] Dr. Whitley Alston Sodium [Moles/Vol] 140 mmol/L Normal 136-[address] [facility] Comment on above: Performed By: #### L IPID, TSH, T7, CMP #### [facility] [address] [place], [place] [address] Dr. Whitley Alston Urea nitrogen [Mass/Vol] 12.0 mg/dL Normal 7.0-18.[address] [facility] Comment on above: Performed By: #### L IPID, TSH, T7, CMP #### [facility] [address] [place], [place] [address] Dr. Whitley Alston Urea nitrogen/Creatinine [Mass ratio] 15.4 mg/mg Normal [facility] Comment on above: Performed By: #### L IPID, TSH, T7, CMP #### [facility] [address] [address] [address] Whitley Alston TSHon 04-21-2022 TSH 4.624 uIU/mL Critically high 0.358-3.740 [facility] Comment on above: Performed By: #### L IPID, TSH, T7, CMP #### [facility] [address] [address] [address] Whitley Alston Encounters Encounter Date Encounter Type Care Provider Facility Start: 05-10-2023 End: 05-10-2023 ambulatory [facility] Facility:[facility] Start: 05-19-2022 End: 05-20-[address] SAMANTHA ROLLINS . Facility: Start: 04-24-2022 End: 04-25-[address] SAMANTHA ROLLINS . Facility: Start: 04-21-2022 End: 04-22-[address] SAMANTHA ROLLINS . Facility: Start: 05-15-2018 End: 05-16-2018 Patient encounter procedure DEFAULT PHYSICIAN Facility:[facility] Start: 04-13-2018 End: 04-14-2018 Patient encounter procedure DEFAULT PHYSICIAN Facility:[facility] Payers Date Payer Category Payer Self-pay 1957 Unknown [id number] 1955 Unknown [id number] 2.16.8 [id number] 1955 Unknown [id number] 2.16.8 [id number] 1955 Unknown [id number] 2.16.84 [id number] 1957 Unknown [id number] 2.16.84 [id number] 1957 Unknown [id number] 2.16.84 [id number] Unknown Summary Purpose Family History No Family History Records FoundNo Family History Records FoundNo Family History Records Found Advance Directives No Advanced Directives Records FoundNo Advanced Directives Records FoundNo Advanced Directives Records Found Additional Source Comments INFORMATION SOURCE (unrecogn ized section and content) DATE CREATED AUTHOR 05/16/2018 [facility] DATE CREATED AUTHOR AUTHOR'S ORGANIZ ATION 05/28/2022 [facility] DATE CREATED AUTHOR AUTHOR'S ORGANIZ ATION 05/19/2023 [facility] FOR RECORDS PERTAINING TO PATIENTS WHO [...] BE BASED ON THE PRIMARY CLINICAL RECORDS. [facility] [employer] [facility]. provides no warranty or guarantee of the accuracy or completeness of information in this document.
[2024-09-06 10:42] LABS: Hematocrit 41.6 % (36.0-48.0); Hemoglobin 13.8 g/dL (12.0-16.0); Immature Granulocytes Abs Auto 0.02 10^3/uL (0.00-0.03); Immature Granulocytes Pct Auto 0.3 % (0.0-0.5); Lymphocytes Absolute Auto 1.8 10^3/uL (1.2-3.8); Mean Corpuscular HGB Conc 33.2 g/dL (29.9-35.2); Mean Corpuscular Hemoglobin 29.7 pg (26.7-34.0); Mean Corpuscular Volume 89.5 fL (81.0-99.0); Platelet Count 235 10^3/uL (150-450); Red Blood Count 4.65 10^6/uL (4.20-5.40); White Blood Count 5.8 10^3/uL (4.0-11.0)
[2024-09-06 10:59] LABS: Alanine Aminotransferase 19 U/L (14-59); Albumin Globulin Ratio 1.0; Albumin Level 3.6 g/dL (3.4-5.0); Alkaline Phosphatase 75 U/L (46-116); Anion Gap 13.7; Aspartate Amino Transferase 15 U/L (15-37); Blood Urea Nitrogen 13.0 mg/dL (7.0-18.0); Calcium 9.1 mg/dL (8.5-10.1); Carbon Dioxide 27.3 mmol/L (21.0-32.0); Chloride 107 mmol/L (98-107); Cholesterol 212 mg/dL (<=200); Estimated GFR (African America >60 (>=60 mL/min/1.73m^2); Estimated GFR (Non-African Ame >60 (>=60 mL/min/1.73m^2); Globulin 3.5 g/dL; Glucose 103 mg/dL (74-106); HDL Cholesterol 107 mg/dL (40-60); Potassium 4.0 mmol/L (3.5-5.1); Sodium 144 mmol/L (136-145); Total Protein 7.1 g/dL (6.4-8.2); Triglycerides 78 mg/dL (<=150); VLDL CHOLESTEROL 15.6 mg/dL
[2024-09-06 11:00] LABS: Free T3 3.09 pg/mL (2.18-3.98); Thyroid Stimulating Hormone 4.196 uIU/mL (0.358-3.740)
[2024-09-06 11:25] LABS: Iron 137.0 ug/dL (50.0-170.0)
== END 2024-09-06 09:54 | disposition home or self-care (01) ==
LOC: LAB 10:02
PROVIDERS: PCP Family Medicine; Visit Provider Family Medicine
DX: J84.115 Respiratory bronchiolitis interstitial lung disease (principal); Z79.51 Long term (current) use of inhaled steroids; I10 Essential (primary) hypertension; R91.1 Solitary pulmonary nodule; F17.219 Nicotine dependence, cigarettes, with unspecified nicotine-induced disorders; R91.8 Other nonspecific abnormal finding of lung field; Z14.8 Genetic carrier of other disease; J43.2 Centrilobular emphysema; E78.5 Hyperlipidemia, unspecified; R73.09 Other abnormal glucose; E55.9 Vitamin D deficiency, unspecified
CPT/HCPCS: 36415; 80053; 80061; 82306; 83036; 83540; 84436; 84443; 84481; 85025

== ENCOUNTER 2024-10-11 09:52 | Outpatient (OUT) | payer MEDICARE, SELFPAY ==
[2024-10-11 11:02] LABS: Free T3 3.06 pg/mL (2.18-3.98); Thyroid Stimulating Hormone 3.319 uIU/mL (0.358-3.740)
== END 2024-10-11 09:53 | disposition home or self-care (01) ==
LOC: LAB 09:53
PROVIDERS: PCP Family Medicine; Visit Provider Family Medicine
DX: E03.9 Hypothyroidism, unspecified (principal)
CPT/HCPCS: 36415; 84436; 84443; 84481

== ENCOUNTER 2024-11-15 09:14 | Outpatient (OUT) | payer MEDICARE, SELFPAY ==
--- NOTE | 2024-11-15 09:21 | CT_ITS ---
The [address] [address] Patient Name: MIKE PEARCE MRN: [id number] date: 1955 Sex: F Assigned Patient Location: CT Current Patient Location: CT Accession/Order Number: [id number] Exam Date: 11/15/2024 09:31 Report Date: 11/15/2024 10:26 At the request of: BRIA ZUNIGA DO Procedure: CT chest wo con CT CHEST WITHOUT IV CONTRAST: CLINICAL HISTORY: Multiple Pulmonary Nodules COMPARISON: CT chest 11/14/2023 TECHNIQUE: Spiral images were obtained through the chest without IV contrast. This CT exam was performed using one or more following dose reduction techniques: Automated exposure control, adjustment of the mA and/or kV according to patient size, or use of iterative reconstruction technique. FINDINGS: Mediastinum:Thoracic aorta appears normal in caliber. Pulmonary trunk appears nondilated. No pleural effusion or lymphadenopathy. The esophagus is grossly unremarkable. Lungs:Emphysema. Mild lung scarring. This is particularly seen involving the lingula. No consolidation pneumothorax or pleural effusion. Diffuse bronchial wall thickening. Stable 6 mm subpleural nodule left lower lobe series 4 image 63. Abd:No acute findings. Soft tissues/Bones: No acute findings. Osseous structures demonstrate degenerative change. CT/CT chest wo con IMPRESSION: Stable 6 mm pulmonary nodule involving the left lower lobe. Given the one-year stability, a benign process is favored. There are scattered areas of lung scarring most prominent involving the lingula similar to the prior study. No new consolidation to suggest pneumonia. Impression dictated by: Adrian Ann Jr., D.O. 11/15/2024 10:26 AM Dictation Location: [place] [address] Electronically authenticated by: [id number] Y Date: 11/15/2024 10:26
--- OUTSIDE RECORDS SUMMARY | 2024-11-15 09:21 | XMS_ITS | CCD ---
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 Name Role Phone PHYSICIAN, DEFAULT Admitting Unavailable [...] Sulfonamides (Antibiotic) Drug allergy (disorder) 10-04-2012 [facility] Repository Problems Problem Classification Problem Date [...] Test Name Value Interpretation Reference Range Facility [facility] 05-10-2023 L Specimen: Received: 05/11/23 Status: ANTOINE Abad Num: [id number] Spec Type: Cytology Subm Dr: Manny Vaca DO Tissues: A BRONWASH (LT UPPER LOBE) Procedures: HE/2, Gross/Micro L4, Cyto Prepstain, PAPSTN Age/ Patient Sex Location Account Attending Physician Isabelle Babcock 68/F [place] [id number] Manny Vaca DO SPEC NUM: [id number] RECD: 05/11/23 STATUS: ANTOINE ABAD NUM: [id number] NILESH: 05/10/23- DR: Manny Vaca DO ENTERED: 05/11/23 [facility] DR: Dewayne,Rafa SPEC TYPE: Cytology DEPT: [facility] ENTERED BY: [id number] RECV BY: [id number] ORDERED: HE/2, Gross/Micro L4, Cyto Prepstain, PAPSTN [...] block section also showing similar findings CPT: 79002, 12330 Gross Description Received fresh labeled with the patient's name, date of and left upper lobe lavage per requisition is 5 ml colorless clear unfixed fluid. 1 Thin Prep slides are prepared. 1 cell blocks are prepared. (CC/nh) Specimen: [id number] Received: 05/11/23 Status: ANTOINE Abad Num: [id number] Spec Type: Cytology Subm Dr: Manny Vaca DO Tissues: A BRONWANICHOLAS (LT UPPER LOBE) Procedures: HE/2, Gross/Micro L4, Cyto Prepstain, PAPSTN Patient: Isabelle Babcock [id number] (Continued) Signed (signature on file) Tomas Alston MD 05/12/23 6584 [facility] L Specimen: [id number] Received: 05/10/23 Status: ANTOINE Abad Num: [id number] Spec Type: Surgical Subm Dr: Manny Vaca DO Tissues: A Lung - Transbroncial Biopsy (LT UPPER LOBE) Procedures: HE/2, Gross/Micro L4, RECUT/2 Age/ Patient Sex Location Account Attending Physician Isabelle Babcock 68/F [place] [id number] Manny Vaca DO SPEC NUM: [id number] RECD: 05/10/23 STATUS: ANTOINE ABAD NUM: [id number] NILESH: 05/10/[address]: Manny Vaca DO [...] submitted in one cassette labeled A1. Specimen: [id number] Received: 05/10/23 Status: ANTOINE Abad Num: [id number] Spec Type: Surgical Subm Dr: Manny Vaca DO Tissues: A Lung - Transbroncial Biopsy (LT UPPER LOBE) Procedures: HE/2, Gross/Micro L4, RECUT/2 Patient: Isabelle Babcock [id number] (Continued) Specimen: [id number] Received: 05/10/23 (Continued) Signed (signature on file) Tomas Alston MD 05/17/23 1504 Specimen: [id number] Received: 05/10/23 Status: ANTOINE Abad Num: [id number] Spec Type: Surgical Subm Dr: Manny Vaca DO Tissues: A Lung - Transbroncial Biopsy (LT UPPER LOBE) Procedures: HE/2, Gross/Micro L4, RECUT/2 Patient: Isabelle Babcock [id number] (Continued) Specimen: [id number] Received: 05/10/23 (Continued) CPT Codes 50468 Specimen: [id number] Received: 05/10/23 Status: ANTOINE Abad Num: [id number] Spec Type: Surgical Subm Dr: Manny Vaca DO Tissues: A Lung - Transbroncial Biopsy (LT UPPER LOBE) Procedures: HE/2, Gross/Micro L4, RECUT/2 Patient: Isabelle Babcock [id number] (Continued) Signed (signature on file) Charles-Epifanio Alston MD 05/17/23 1504 [facility] FREE T3on 05-19-2022 FREE T3 2.61 pg/mlL Normal 2.18-3.98 [facility] Comment on above: Performed By: #### T SH, T4, FT3 #### [facility] [address] [place] [address] Dr. Whitley Alston T4on 05-19-2022 T4 [Mass/Vol] 8.30 ug/dL Normal 4.80-13.90 [facility] Comment on above: Performed By: #### T SH, T4, FT3 #### [facility] [address] [address] [address] Whitley Alston TSHon 05-19-2022 TSH 3.401 uIU/mL Normal 0.358-3.740 [facility] Comment on above: Performed By: #### T SH, T4, FT3 #### [facility] [address] [place] [address] [address] SKULL BASE [...] by: GLORIA PRO Date: 2022-04-24 17:22 Normal [facility] CBC AUTO DIFFon 04-21-2022 BASO # 0.0 103/ul Normal 0.0-0.1 [facility] Comment on above: Performed By: #### C BC #### [facility] [address] [address] [address] Whitley Alston Basophils/100 WBC (Bld) 0.5 % Normal 0.2-2.0 [facility] Comment on above: Performed By: #### C BC #### [facility] [address] [place] [address] Dr. Whitley Alston EO # 0.3 103/ul Normal 0.0-0.7 [facility] Comment on above: Performed By: #### C BC #### [facility] [address] [place] [address] Dr. Whitley Alston Eosinophils/100 WBC (Bld) 5.6 % Normal 0.9-7.0 [facility] Comment on above: Performed By: #### C BC #### [facility] [address] [place] [address] Dr. Whitley Alston Erythrocyte distribution width (RBC) [Ratio] 13.2 % Normal 11.0-15.0 [facility] Comment on above: Performed By: #### C BC #### [facility] [address] [place] [address] Dr. Whitley Alston Hematocrit (Bld) [Volume fraction] 42.8 % Normal 36.0-48.0 [facility] Comment on above: Performed By: #### C BC #### [facility] [address] [place] [address] Dr. Whitley Alston Hemoglobin (Bld) [Mass/Vol] 14.3 g/dL Normal 12.0-16.0 [facility] Comment on above: Performed By: #### C BC #### [facility] [address] [place] [address] Dr. Whitley Alston IG # 0.02 10e3/ul Normal 0.00-0.03 [facility] Comment on above: Performed By: #### C BC #### [facility] [address] [place] [address] Dr. Whitley Alston IG % 0.3 % Normal 0.0-0.5 [facility] Comment on above: Performed By: #### C BC #### [facility] [address] [place] [address] Dr. Whitley Alston LYMPH # 1.8 103/ul Normal 1.2-3.8 [facility] Comment on above: Performed By: #### C BC #### [facility] [address] [place] [address] Dr. Whitley Alston Lymphocytes/100 WBC (Bld) 30.7 % Normal 20.5-60.0 [facility] Comment on above: Performed By: #### C BC #### [facility] [address] [place] [address] Dr. Whitley Alston MANUAL DIFF REQ NO Normal [facility] Comment on above: Performed By: #### C BC #### [facility] [address] [place] [address] Dr. Whitley Alston MCH (RBC) [Entitic mass] 29.2 pg Normal 26.7-34.0 [facility] Comment on above: Performed By: #### C BC #### [facility] [address] [place] [address] Dr. Whitley Alston MCHC (RBC) [Mass/Vol] 33.4 g/dL Normal 29.9-35.2 [facility] Comment on above: Performed By: #### C BC #### [facility] [address] [place] [address] Dr. Whitley Alston MCV (RBC) [Entitic vol] 87.3 fL Normal 81.0-99.0 [facility] Comment on above: Performed By: #### C BC #### [facility] [address] [place] [address] Dr. Whitley Alston MONO # 0.5 103/ul Normal 0.3-0.8 [facility] Comment on above: Performed By: #### C BC #### [facility] [address] [place] [address] Dr. Whitley Alston Monocytes/100 WBC (Bld) 9.4 % Normal 1.7-12.0 [facility] Comment on above: Performed By: #### C BC #### [facility] [address] [place] [address] Dr. Whitley Alston NEUT # 3.1 103/ul Normal 1.4-6.5 [facility] Comment on above: Performed By: #### C BC #### [facility] [address] [place] [address] Dr. Whitley Alston Neutrophils/100 WBC (Bld) 53.5 % Normal 43.0-75.0 [facility] Comment on above: Performed By: #### C BC #### [facility] [address] [place] [address] Dr. Whitley Alston Platelet mean volume (Bld) [Entitic vol] 10.5 fL Normal 9.5-13.5 [facility] Comment on above: Performed By: #### C BC #### [facility] [address] [place] [address] Dr. Whitley Alston PLT 271 103/ul Normal 150-450 [facility] Comment on above: Performed By: #### C BC #### [facility] [address] [place] [address] Dr. Whitley Alston RBC 4.90 106/ul Normal 4.20-5.40 [facility] Comment on above: Performed By: #### C BC #### [facility] [address] [place] [address] Dr. Whitley Alston WBC 5.7 103/ul Normal 4.0-11.0 [facility] Comment on above: Performed By: #### C BC #### [facility] [address] [place] [address] LUNG CANCER SCREENINGon [...] PELON DAVIS Date: 2022-04-21 11:38 Normal [facility] FREE THYROXINE INDEX T7on FTI 2.63 Normal 1.30-4.50 [facility] Comment on above: Performed By: #### L IPID, TSH, T7, CMP #### [facility] [address] [place] [address] Dr. Whitley Alston T3U 37.0 % Normal 30.0-39.0 [facility] Comment on above: Performed By: #### L IPID, TSH, T7, CMP #### [facility] [address] [address] [address] Whitley Alston T4 [Mass/Vol] 7.10 ug/dL Normal 4.80-13.90 [facility] Comment on above: Performed By: #### L IPID, TSH, T7, CMP #### [facility] [address] [place] [address] Dr. Whitley Alston GLYCOHEMOGLOBIN A1Con 2022 ADA RECOMMENDATION SEE BELOW Normal [facility] Comment on above: Result Comment: ADA RECOMMENDED LIMIT 4.0 - 6.0 ADA THERAPEUTIC TARGET < 7.0 ACTION SUGGESTED > 7.0 Performed By: #### A 1C #### [facility] [address] [place] [address] Dr. Whitley Alston Glucose [Mass/Vol] 105 mg/dL Normal [facility] Comment on above: Performed By: #### A 1C #### [facility] [address] [place] [address] Dr. Whitley Alston HbA1c (Bld) [Mass fraction] 5.3 % Normal 4.5-6.2 [facility] Comment on above: Performed By: #### A 1C #### [facility] [address] [place], [place] [address] Dr. Whitley Alston IRONon 04-21-2022 Iron [Mass/Vol] 137.0 ug/dL Normal 50.0-170.0 [facility] Comment on above: Performed By: #### I KINSEY ####[facility] [address] [address]DrIsa Alston LIPID PROFILEon 04-21-2022 CHOL-HDL RATIO NORM SEE BELOW Normal [facility] Comment on above: Result Comment: 3.3 - 4.4 LOW RISK 4.4 - 7.1 AVERAGE RISK 7.1 - 11.0 MODERATE RISK >11.0 HIGH RISK Performed By: #### L IPID, TSH, T7, CMP ####[facility] [address] [address]Dr. Whitley Alston Cholesterol [Mass/Vol] 250 mg/dL Critically high <=200 [facility] Comment on above: Performed By: #### L IPID, TSH, T7, CMP ####[facility] [address] [address] Whitley Alston Cholesterol in HDL [Mass/Vol] 111 mg/dL Critically high 40-60 [facility] Comment on above: Performed By: #### L IPID, TSH, T7, CMP ####[facility] [address] [address]Dr[address] Whitley Alston Cholesterol in LDL [Mass/Vol] 121.6 mg/dL Normal [facility] Comment on above: Performed By: #### L IPID, TSH, T7, CMP ####[facility] [address] [address]Dr[address] Whitley Alston Cholesterol.total/Ch olesterol in HDL [Mass ratio] 2.3 {ratio} Normal [facility] Comment on above: Performed By: #### L IPID, TSH, T7, CMP ####[facility] [address] [address]Dr. Whitley Alston HDL NORMAL > or = 60 mg/dl - LO W CARDIOVASCULAR RISK <40 mg/dl - HIGH CARDIOVASCULAR RISK Normal [facility] Comment on above: Performed By: #### L IPID, TSH, T7, CMP ####[facility] [address] [address]Dr. Whitley Alston LDL CALC NORMAL SEE BELOW Normal [facility] Comment on above: Result Comment: <100 mg/dl OPTIMAL 100 - 129 mg/dl NEAR OR ABOVE OPTIMAL 130 - 159 mg/dl BORDERLINE HIGH 160 - 189 mg/dl HIGH >190 mg/dl VERY HIGH Performed By: #### L IPID, TSH, T7, CMP ####[facility] [address] [address]Dr. Whitley Alston Triglyceride [Mass/Vol] 87 mg/dL Normal <=150 [facility] Comment on above: Performed By: #### L IPID, TSH, T7, CMP ####[facility] [address] [address]Dr. Whitley Alston VLDL CALC 17.4 mg/dL Normal [facility] Comment on above: Performed By: #### L IPID, TSH, T7, CMP ####[facility] [address] [address]DrIsa Alston PROF 14(COMP METB)on 023 Albumin [Mass/Vol] 4.1 g/dL Normal 3.4-5.0 [facility] Comment on above: Performed By: #### L IPID, TSH, T7, CMP #### [facility] [address] [address] [address] Whitley Alston Albumin/Globulin [Mass ratio] 1.2 {ratio} Normal [facility] Comment on above: Performed By: #### L IPID, TSH, T7, CMP #### [facility] [address] [address] [address] Whitley Alston ALP [Catalytic activity/Vol] 81 U/L Normal 46-116 [facility] Comment on above: Performed By: #### L IPID, TSH, T7, CMP #### [facility] [address] [place] [address] Dr. Whitley Alston ALT [Catalytic activity/Vol] 24 U/L Normal 14-59 [facility] Comment on above: Performed By: #### L IPID, TSH, T7, CMP #### [facility] [address] [place] [address] Dr. Whitley Alston Anion gap [Moles/Vol] 11.0 mmol/L Normal [facility] Comment on above: Performed By: #### L IPID, TSH, T7, CMP #### [facility] [address] [place] [address] Dr. Whitley Alston AST [Catalytic activity/Vol] 18 U/L Normal 15-37 [facility] Comment on above: Performed By: #### L IPID, TSH, T7, CMP #### [facility] [address] [place] [address] Dr. Whitley Alston Bilirubin [Mass/Vol] 0.7 mg/dL Normal 0.2-1.0 [facility] Comment on above: Performed By: #### L IPID, TSH, T7, CMP #### [facility] [address] [place] [address] Dr. Whitley Alston Calcium [Mass/Vol] 9.7 mg/dL Normal 8.5-10.1 [facility] Comment on above: Performed By: #### L IPID, TSH, T7, CMP #### [facility] [address] [place] [address] Dr. Whitley Alston Chloride [Moles/Vol] 106 mmol/L Normal 98-107 [facility] Comment on above: Performed By: #### L IPID, TSH, T7, CMP #### [facility] [address] [place] [address] Dr. Whitley Alston CO2 [Moles/Vol] 27.1 mmol/L Normal 21.0-32.0 [facility] Comment on above: Performed By: #### L IPID, TSH, T7, CMP #### [facility] [address] [place] [address] Dr. Whitley Alston Creatinine [Mass/Vol] 0.78 mg/dL Normal 0.55-1.02 [facility] Comment on above: Performed By: #### L IPID, TSH, T7, CMP #### [facility] [address] [address] [address] Whitley Alston EGFR-AF JORDANIAN >60 Normal >=60 [facility] Comment on above: Performed By: #### L IPID, TSH, T7, CMP #### [facility] [address] [address] [address] Whitley Alston EGFR-NON AF JORDANIAN >60 Normal >=60 [facility] Comment on above: Performed By: #### L IPID, TSH, T7, CMP #### [facility] [address] [place] [address] Dr. Whitley Alston Globulin (S) [Mass/Vol] 3.5 g/dL Normal [facility] Comment on above: Performed By: #### L IPID, TSH, T7, CMP #### [facility] [address] [place] [address] Dr. Whitley Alston Glucose [Mass/Vol] 107 mg/dL Critically high 74-106 [facility] Comment on above: Performed By: #### L IPID, TSH, T7, CMP #### [facility] [address] [place] [address] Dr. Whitley Alston Potassium [Moles/Vol] 4.1 mmol/L Normal 3.5-5.1 [facility] Comment on above: Performed By: #### L IPID, TSH, T7, CMP #### [facility] [address] [place] [address] Dr. Whitley Alston Protein [Mass/Vol] 7.6 g/dL Normal 6.4-8.2 [facility] Comment on above: Performed By: #### L IPID, TSH, T7, CMP #### [facility] [address] [place] [address] Dr. Whtiley Alston Sodium [Moles/Vol] 140 mmol/L Normal 136-145 [facility] Comment on above: Performed By: #### L IPID, TSH, T7, CMP #### [facility] [address] [place], [place] [address] Dr. Whitley Alston Urea nitrogen [Mass/Vol] 12.0 mg/dL Normal 7.0-18.0 [facility] Comment on above: Performed By: #### L IPID, TSH, T7, CMP #### [facility] [address] [place], [place] [address] Dr. Whitley Alston Urea nitrogen/Creatinine [Mass ratio] 15.4 mg/mg Normal [facility] Comment on above: Performed By: #### L IPID, TSH, T7, CMP #### [facility] [address] [address] [address] Whitley Alston TSHon 04-21-2022 TSH 4.624 uIU/mL Critically high 0.358-3.740 [facility] Comment on above: Performed By: #### L IPID, TSH, T7, CMP #### [facility] [address] [address] [address] Whitley Alston Encounters Encounter Date Encounter Type Care Provider Facility Start: 05-10-2023 End: 05-10-2023 ambulatory [facility] Facility:[facility] Start: 05-19-2022 End: 05-20-[address] SAMANTHA ROLLINS . Facility: Start: 04-24-2022 End: 04-25-[address] SAMANTHA ROLLINS . Facility: Start: 04-21-2022 End: 04-22-[address] SAMANTHA ROLLINS . Facility: Start: 05-15-2018 End: 05-16-2018 Patient encounter procedure DEFAULT PHYSICIAN Facility:[facility] Start: 04-13-2018 End: 04-14-2018 Patient encounter procedure DEFAULT PHYSICIAN Facility:[facility] Payers Date Payer Category Payer Self-pay 1957 Unknown [id number] 1955 Unknown [id number] 2.16.8 [id number] 1955 Unknown [id number] 2.16.8 [id number] 1955 Unknown [id number] 2.16.84 [id number] 1955 Unknown [id number] 2.16.84 [id number] 1955 Unknown [id number] 2.16.84 [id number] Unknown Summary Purpose Family History No Family History Records FoundNo Family History Records FoundNo Family History Records Found Advance Directives No Advanced Directives Records FoundNo Advanced Directives Records FoundNo Advanced Directives Records Found Additional Source Comments INFORMATION SOURCE (unrecogn ized section and content) DATE CREATED AUTHOR 05/16/2018 [facility] DATE CREATED AUTHOR AUTHOR'S ORGANIZ ATION 05/28/2022 [facility] DATE CREATED AUTHOR AUTHOR'S ORGANIZ ATION 05/19/2023 [facility] FOR RECORDS PERTAINING TO [...] THE PRIMARY CLINICAL RECORDS. [facility]. provides no warranty or guarantee of the accuracy or completeness of information in this document.
== END 2024-11-15 09:15 | disposition home or self-care (01) ==
LOC: CT 09:15
PROVIDERS: PCP Family Medicine; Visit Provider Internal Medicine
DX: R91.8 Other nonspecific abnormal finding of lung field (principal); R91.1 Solitary pulmonary nodule
CPT/HCPCS: 71250